=== PATIENT | female | born 1945 | race Caucasian/White ===

== ENCOUNTER 2020-02-02 08:38 | Outpatient (REF) | payer MEDICARE, SELFPAY ==
[2020-02-02 09:52] LABS: MANUAL DIFF FLAG NO
[2020-02-02 10:24] LABS: Basophils Percent Auto 0.3 % (0-2); Eosinophils Absolute Auto 0.2 X10*3/uL (0.0-0.4); Eosinophils Percent Auto 2.7 % (0-4); Hematocrit 41.1 % (37-47); Hemoglobin 13.6 g/dl (12.0-16.0); Imm Gran Abs Auto 0.03 X10*3/uL (0.00-0.03); Imm Gran Pct Auto 0.3 % (0.0-0.4); Lymphocytes Absolute Auto 3.5 X10*3/uL (1.2-4.9); Lymphocytes Percent Auto 40.3 % (20-40); Mean Corpuscular HGB Conc 33.1 g/dl (31.0-35.0); Mean Corpuscular Hemoglobin 30.4 pg (27.0-33.0); Mean Corpuscular Volume 91.9 fL (80-98); Mean Platelet Volume 10.1 fL (9.4-12.3); Monocytes Absolute Auto 0.6 X10*3/uL (0.1-1.2); Neutrophils Absolute Auto 4.2 X10*3/uL (2.0-8.3); Neutrophils Percent Auto 49.4 % (45-73); Platelet Count 316 X10*3/uL (160-400); Red Blood Count 4.47 X10*6/uL (4.20-5.50); Red Cell Distribution Width 12.4 % (11.0-16.0); White Blood Count 8.6 X10*3/uL (4.8-10.8)
[2020-02-02 10:28] LABS: Glucose Urine UA NEG (NEG); Leukocyte Esterase Urine 2+ (NEG); Nitrite Urine NEG (NEG); PH 6.5 (5.0-8.0); Specific Gravity - Urine 1.015 (1.005-1.025); Urine Blood NEG (NEG); Urine Ketones NEG (NEG); Urine Protein NEG (NEG-TRACE)
[2020-02-02 10:31] LABS: Alanine Aminotransferase 9 U/L (0-31); Albumin Level 4.2 g/dL (3.5-5.0); Alkaline Phosphatase 58 U/L (39-117); Anion Gap 10 (12-20); Aspartate Amino Transferase 14 U/L (5-31); Bilirubin Total 0.9 mg/dL (0.0-1.0); Blood Urea Nitrogen 12 mg/dL (9-16); Carbon Dioxide 32 mmol/L (22-29); Chloride 101 mmol/L (96-108); Cholesterol 254 mg/dL; Estimated Glomerular Filt Rate > 60; Glucose Random 105 mg/dL (60-115); HDL Cholesterol 63 mg/dL; LDL Cholesterol Calculated 164 mg/dl; Potassium 4.1 mmol/l (3.3-5.1); Sodium 139 mmol/L (135-145); Total Protein 7.2 g/dL (6.5-8.0); Triglycerides 135 mg/dL
[2020-02-02 10:32] LABS: Estimated Average Glucose 123 mg/dL; Hemoglobin A1c % 5.9 %
[2020-02-02 10:33] LABS: Appearance Urine CLEAR; Color Urine YELLOW
[2020-02-02 10:48] LABS: Bacteria Urine 1+ /LPF; RBC Urine 0 /HPF (0); Squamous Epithelial Cell Urine 2+ /LPF
[2020-02-02 10:49] LABS: Amorphous Sediment Urine 2+ /LPF
[2020-02-02 11:55] LABS: Creatinine Urine 91.21 mg/dL; Microalbumin Urine < 5.0 mg/L
== END 2020-02-02 08:39 | disposition home or self-care (01) ==
LOC: HO.LAB 08:38
PROVIDERS: PCP Internal Medicine; Visit Provider Internal Medicine
DX: Z00.00 Encounter for general adult medical examination without abnormal findings (principal); I10 Essential (primary) hypertension; R73.09 Other abnormal glucose
CPT/HCPCS: 36415; 80053; 80061; 81001; 81003; 82043; 83036; 84153; 85025

== ENCOUNTER 2020-03-29 09:54 | Outpatient (REF) | payer MEDICARE, SELFPAY ==
--- NOTE | 2020-03-29 09:58 | MM_ITS ---
EXAMINATION: MM SCREENING DIGITAL BREAST TOMOSYNTHESIS, BILATERAL CLINICAL INFORMATION: Screening. Asymptomatic. The lifetime risk of breast cancer based on the Tyrer-Cuzick Model is 2%. COMPARISON: Mammography: 03/24/2019, 03/21/2018, 03/19/2017, 02/24/2016 TECHNIQUE: Digital breast tomosynthesis is performed in both the craniocaudal and mediolateral oblique views along with computer-aided detection (CAD). Synthesized 2D images are generated from the tomosynthesis. FINDINGS: The breasts are heterogeneously dense, which may obscure small masses (ACR BI-RADS breast composition Category c). Breast tissue composition borders on average fibroglandular. There is stable nodular asymmetry central left breast on CC view similar to prior exams. There is no developing density or interval architectural abnormality or abnormal calcifications. The axilla and skin contours are unremarkable. MM/MM tomosynthesis screening BI IMPRESSION: No significant changes from prior studies. ASSESSMENT: BI-RADS 2: Benign RECOMMENDATION: Routine annual mammography screening. This patient's information was entered into a reminder system with a target due date for their next mammogram.
== END 2020-03-29 09:55 | disposition home or self-care (01) ==
LOC: HO.MAMMO 09:54
PROVIDERS: PCP Internal Medicine; Visit Provider Internal Medicine
DX: Z12.31 Encounter for screening mammogram for malignant neoplasm of breast (principal)
CPT/HCPCS: 77063; 77067

== ENCOUNTER 2020-11-28 09:50 | Outpatient (REF) | payer MEDICARE, SELFPAY | END 2020-11-28 09:51 | disposition home or self-care (01) | LOC: HO.LAB 09:50 | PROVIDERS: PCP Internal Medicine; Visit Provider Internal Medicine | DX: Z20.822 Contact with and (suspected) exposure to COVID-19 (principal) | CPT/HCPCS: C9803; U0003; U0005 ==

== ENCOUNTER 2021-02-06 10:14 | Outpatient (REF) | payer MEDICARE, SELFPAY ==
[2021-02-06 10:17] LABS: MANUAL DIFF FLAG NO
[2021-02-06 10:37] LABS: Basophils Percent Auto 0.4 % (0-2); Eosinophils Absolute Auto 0.3 X10*3/uL (0.0-0.4); Eosinophils Percent Auto 2.3 % (0-4); Hematocrit 40.7 % (37-47); Hemoglobin 13.3 g/dl (12.0-16.0); Imm Gran Abs Auto 0.05 X10*3/uL (0.00-0.03); Imm Gran Pct Auto 0.5 % (0.0-0.4); Lymphocytes Absolute Auto 3.8 X10*3/uL (1.2-4.9); Lymphocytes Percent Auto 34.7 % (20-40); Mean Corpuscular HGB Conc 32.7 g/dl (31.0-35.0); Mean Corpuscular Hemoglobin 29.4 pg (27.0-33.0); Mean Corpuscular Volume 89.8 fL (80-98); Mean Platelet Volume 10.2 fL (9.4-12.3); Monocytes Absolute Auto 0.8 X10*3/uL (0.1-1.2); Monocytes Percent Auto 7.1 % (2-11); Platelet Count 328 X10*3/uL (160-400); Red Blood Count 4.53 X10*6/uL (4.20-5.50); Red Cell Distribution Width 12.6 % (11.0-16.0); White Blood Count 10.9 X10*3/uL (4.8-10.8)
[2021-02-06 10:47] LABS: Alanine Aminotransferase 12 U/L (0-31); Albumin Level 4.1 g/dL (3.5-5.0); Alkaline Phosphatase 59 U/L (39-117); Anion Gap 12 (12-20); Aspartate Amino Transferase 15 U/L (5-31); Blood Urea Nitrogen 13 mg/dL (9-16); Carbon Dioxide 28 mmol/L (22-29); Chloride 102 mmol/L (96-108); Cholesterol 238 mg/dL; Estimated Glomerular Filt Rate > 60; Glucose Fasting 109 mg/dL (60-99); HDL Cholesterol 62 mg/dL; LDL Cholesterol Calculated 154 mg/dl; Potassium 3.9 mmol/L (3.3-5.1); Sodium 138 mmol/L (135-145); Triglycerides 110 mg/dL
[2021-02-06 10:51] LABS: Estimated Average Glucose 128 mg/dL; Hemoglobin A1c % 6.1 %
[2021-02-06 10:58] LABS: Appearance Urine CLEAR; Color Urine YELLOW; Glucose Urine UA NEG (NEG); Leukocyte Esterase Urine 3+ (NEG); Nitrite Urine NEG (NEG); Urine Blood NEG (NEG); Urine Ketones NEG (NEG); Urine Protein NEG (NEG-TRACE)
[2021-02-06 11:19] LABS: Bacteria Urine 1+ /LPF; RBC Urine 0-2 /HPF (0); Squamous Epithelial Cell Urine 2+ /LPF
== END 2021-02-06 10:15 | disposition home or self-care (01) ==
LOC: HO.LNP 10:14
PROVIDERS: Visit Provider Internal Medicine
DX: Z00.00 Encounter for general adult medical examination without abnormal findings (principal); I10 Essential (primary) hypertension; R73.09 Other abnormal glucose; G44.221 Chronic tension-type headache, intractable; M81.0 Age-related osteoporosis without current pathological fracture
CPT/HCPCS: 80053; 80061; 81001; 81003; 83036; 85025

== ENCOUNTER 2021-04-13 13:30 | Outpatient (REF) | payer MEDICARE, SELFPAY ==
--- NOTE | ~2021-04-13 | MM_ITS ---
EXAMINATION: BONE DENSITOMETRY CLINICAL INDICATION: Osteoporosis. COMPARISON: Previous BD dated 03/20/2019 and baseline BD dated 03/19/2017. TECHNIQUE: Using a [employer] DXA System (software version: 13.1) manufactured by [employer], dual-energy x-ray absorptiometry was performed of the lumbar spine and left hip. The images are of good technical quality. Summary results are attached. FINDINGS: AP SPINE L1-L4: Current: BMD 0.833 g/cm2, Z-score -0.9, T-score -2.9, osteoporosis, 3.1% decrease from previous, 8.9% increase from baseline (<5% change is not significant). Prior: BMD 0.860 g/cm2. Baseline: BMD 0.765 g/cm2. LEFT FEMUR, NECK: Current: BMD 0.849 g/cm2, Z-score 0.8, T-score -1.4, osteopenia. Prior: BMD 0.843 g/cm2. Baseline: BMD 0.852 g/cm2. LEFT FEMUR, TOTAL: Current: BMD 0.841 g/cm2, Z-score 0.7, T-score -1.3, osteopenia, 2.3% decrease from previous, 0.5% decrease from baseline (<5% change is not significant). Prior: BMD 0.822 g/cm2. Baseline: BMD 0.845 g/cm2. IDENTIFIED RISK FACTORS: Osteoporosis, menopause, hysterectomy, bilateral oophorectomy. HISTORY OF FRACTURE: None listed. MEDICATIONS: Calcium supplements or multivitamin, vitamin D, bisphosphonate. MM/XR DEXA axial skeleton IMPRESSION: 1. DIAGNOSIS: Osteoporosis based on the lowest T-score value of -2.9 in the lumbar spine applying World Health Organization criteria. 2. 10-YEAR FRACTURE RISK PREDICTION, FRAX: According to the guidelines, FRAX calculation should only be performed on patients in the osteopenia bone density category. 3. Treatment Recommendations: NOF guidelines recommend consideration for treatment in postmenopausal women and men age 50 and older presenting with the following: -A hip or vertebral (clinical or morphometric) fracture. -T-score less than or equal to -2.5 at the femoral neck or spine after appropriate evaluation to exclude secondary causes. -Low bone mass at the hip or spine and a 10-year fracture probability by FRAX of greater than or equal to 3% for hip fracture or greater than or equal to 20% for major osteoporotic fracture based on the [place] adapted WHO algorithm. 4. Other Recommendations: All treatment decisions require clinical judgment and consideration of individual patient factors, including patient preferences, comorbidities, previous drug use, risk factors not captured in the FRAX model (e.g. frailty, falls, vitamin D deficiency, increased bone turnover, interval significant decline in bone density) and possible under or overestimation of fracture risk by FRAX. Additional medical evaluation for secondary cause of low bone mineral density may be appropriate. FUTURE SCAN RECOMMENDATION: People with diagnosed cases of osteoporosis or at high risk for fracture should have regular bone mineral density tests. For patients eligible for Medicare, routine testing is allowed once every 2 years. The testing frequency can be increased to one year for patients who have rapidly progressing disease, those who are receiving or discontinuing medical therapy to restore bone mass, or have additional risk factors.
--- NOTE | ~2021-04-13 | MM_ITS ---
EXAMINATION: MM SCREENING DIGITAL BREAST TOMOSYNTHESIS, BILATERAL CLINICAL INFORMATION: Screening. Asymptomatic. The lifetime risk of breast cancer based on the Tyrer-Cuzick Model is 2%. COMPARISON: Mammography: 03/29/2020, 03/24/2019, 03/21/2018 TECHNIQUE: Digital breast tomosynthesis is performed in both the craniocaudal and mediolateral oblique views along with computer-aided detection (CAD). Synthesized 2D images are generated from the tomosynthesis. FINDINGS: The breasts are heterogeneously dense, which may obscure small masses (ACR BI-RADS breast composition Category c). Parenchymal pattern is similar to prior studies. There is fine fibronodular parenchymal pattern. There is no developing density or interval mass or architectural abnormality. Nodular asymmetry central left breast is similar to prior study. There are no abnormal calcifications. The axilla and skin contours are unremarkable. MM/MM tomosynthesis screening BI IMPRESSION: No significant changes from prior exams. ASSESSMENT: BI-RADS 2: Benign RECOMMENDATION: Routine annual mammography screening. This patient's information was entered into a reminder system with a target due date for their next mammogram.
== END 2021-04-13 13:31 | disposition home or self-care (01) ==
LOC: HO.MAMMO 13:30
PROVIDERS: Visit Provider Internal Medicine
DX: Z12.31 Encounter for screening mammogram for malignant neoplasm of breast (principal); Z13.820 Encounter for screening for osteoporosis; M81.0 Age-related osteoporosis without current pathological fracture; Z78.0 Asymptomatic menopausal state; Z90.722 Acquired absence of ovaries, bilateral; Z79.899 Other long term (current) drug therapy
CPT/HCPCS: 77063; 77067; 77080

== ENCOUNTER 2021-09-12 15:25 | Outpatient (REF) | payer MEDICARE, SELFPAY ==
--- NOTE | ~2021-09-12 | XR_ITS ---
EXAMINATION: XR CHEST CLINICAL INFORMATION: Bronchospasm COMPARISON: None TECHNIQUE: 2 views of the chest were obtained. FINDINGS: There is coarsening of the interstitial markings of unknown chronicity. There is no engorgement of the central vasculature to suggest superimposed interstitial edema. Costophrenic sulci appear clear. No overt effusion. Heart size within limits of normal. Hilar and mediastinal contours are unremarkable. There are degenerative changes thoracic spine again benign-appearing sclerotic lesion right humeral head. XR/XR chest 2V IMPRESSION: -Coarsening interstitial markings of unknown chronicity. -No engorgement central vasculature to suggest superimposed interstitial edema. No overt effusion.
== END 2021-09-12 15:26 | disposition home or self-care (01) ==
LOC: HO.XRAY 15:25
PROVIDERS: PCP Internal Medicine; Visit Provider Internal Medicine
DX: J98.01 Acute bronchospasm (principal)
CPT/HCPCS: 71046

== ENCOUNTER → 2021-11-14 09:51 | Outpatient (BNVA) | payer MEDICARE, SELFPAY | PROVIDERS: PCP Internal Medicine; Visit Provider Internal Medicine Pulmonary Disease | DX: R06.00 Dyspnea, unspecified (principal); J84.9 Interstitial pulmonary disease, unspecified | CPT/HCPCS: 99202 ==

== ENCOUNTER 2021-12-04 09:11 | Outpatient (REF) | payer MEDICARE, SELFPAY ==
--- NOTE | ~2021-12-04 | CT_ITS ---
EXAMINATION: CT CHEST WITHOUT CONTRAST CLINICAL INFORMATION: Interstitial disease COMPARISON: Previous chest x-ray most recent August TECHNIQUE: Multidetector volumetric CT imaging of the chest was done. Axial MIP volume rendering provided. Sagittal and coronal reformatted images were obtained. This CT examination was performed using dose optimization techniques as appropriate, variously including the following: *Automated exposure control *Adjustment of mA and/or kV according to patient size (this includes techniques or standardized protocols for targeted exams where dose is matched to indication/reason for exam; i.e. extremities or head) *Use of iterative reconstruction technique DLP: 100 mGy-cm FINDINGS: LUNGS: There is mild biapical pleural thickening. There is volume loss to the right hemithorax with shift of the central mediastinal structures to the right. There is complete atelectasis/consolidation of the right middle and right lower lobes. There is soft tissue opacification of the right middle and right lower lobe bronchi. There are some increased peripheral interstitial markings, greatest in the lateral right upper lobe with increased peripheral reticulation and interlobular septal thickening for example axial image 93 series 10. There are increased peripheral interstitial markings seen in the left upper lobe with increased reticulation and interlobular septal thickening for example axial image 79 series 10. MEDIASTINUM: The visualized thyroid gland is normal. The heart does not appear enlarged. There is no pericardial effusion. Thoracic aorta is normal in caliber. Evaluation of the right pulmonary hilum and infrahilar and subcarinal regions is limited due to lack of IV contrast in the right middle lobe atelectasis/consolidation. There are small mediastinal lymph nodes in the AP window region and pretracheal regions. No left hilar adenopathy is appreciated. PLEURA: There is a small right pleural effusion. There is no left pleural effusion. AXILLA: No lymphadenopathy. UPPER ABDOMEN: There are several low-attenuation liver lesions probably representing cysts. The gallbladder has been removed. There is a 2 x 3 cm low-attenuation right adrenal lesion probably representing a benign adenoma. OSSEOUS STRUCTURES: There are degenerative changes of the spine and increased sclerosis. There is a nonspecific sclerotic lesion in the right humeral head. CT/CT chest wo con IMPRESSION: Volume loss to the right hemithorax, complete atelectasis/consolidation of the right middle and lower lobes and soft tissue opacification of the right middle and lower lobe bronchi. This is from August 2021 chest x-ray. Small right pleural effusion. Question mild interstitial lung disease with upper lobe predominance. Fleischner guidelines were followed. Findings communicated by the [facility] work flow dietary manager.
== END 2021-12-04 09:12 | disposition home or self-care (01) ==
LOC: HO.CT 09:11
PROVIDERS: Visit Provider Internal Medicine Pulmonary Disease
DX: J84.9 Interstitial pulmonary disease, unspecified (principal)
CPT/HCPCS: 71250

== ENCOUNTER 2021-12-14 08:40 | Outpatient (REF) | payer MEDICARE, SELFPAY ==
--- NOTE | ~2021-12-14 | FL_ITS ---
EXAMINATION: XR FLUOROSCOPY UPPER GI WITH AIR CLINICAL INFORMATION: Nausea COMPARISON: None TECHNIQUE: Fluoroscopic assessment of the upper GI tract was performed in various upright and supine/prone obliquities utilizing thin and thick high density barium contrast material and effervescent granules. A 13 mm barium tablet was utilized. FINDINGS: The esophagus was normal in course, caliber, and contour. There was normal distensibility with no fixed segment of narrowing. No focal mucosal abnormality was identified. Moderate esophageal dysmotility was observed. Contrast passed freely across the gastroesophageal junction into the stomach. No significant hiatal hernia. The 13 mm barium tablet was swallowed without difficulty, freely passing through the esophagus and into the stomach without delay. There was normal distensibility of the stomach with no focal abnormality identified. There was prompt gastric emptying into the duodenum which demonstrated a normal appearance. Moderate gastroesophageal reflux was observed. FLUOROSCOPY TIME: 1.8 minutes DOSE AREA PRODUCT: 10.154 uGy-m2 (microgray-meter squared) FL/FL upper GI w air IMPRESSION: Moderate esophageal dysmotility. Moderate gastroesophageal reflux noted.
== END 2021-12-14 08:41 | disposition home or self-care (01) ==
LOC: HO.XRAY 08:40
PROVIDERS: PCP Internal Medicine; Visit Provider Internal Medicine
DX: R11.0 Nausea (principal)
CPT/HCPCS: 74246

== ENCOUNTER 2021-12-25 16:26 | Outpatient (REF) | payer MEDICARE, SELFPAY ==
[2021-12-25 16:29] LABS: MANUAL DIFF FLAG NO
[2021-12-25 16:45] LABS: Basophils Absolute Auto 0.1 X10*3/uL (0.0-0.2); Basophils Percent Auto 0.5 % (0-2); Eosinophils Absolute Auto 0.2 X10*3/uL (0.0-0.4); Eosinophils Percent Auto 1.9 % (0-4); Hematocrit 38.1 % (37.0-47.0); Imm Gran Abs Auto 0.05 X10*3/uL (0.00-0.03); Imm Gran Pct Auto 0.5 % (0.0-0.4); Lymphocytes Absolute Auto 2.6 X10*3/uL (1.2-4.9); Lymphocytes Percent Auto 24.1 % (20-40); Mean Corpuscular HGB Conc 34.1 g/dl (31.0-35.0); Mean Corpuscular Hemoglobin 29.5 pg (27.0-33.0); Mean Corpuscular Volume 86.6 fL (80.0-98.0); Mean Platelet Volume 9.8 fL (9.4-12.3); Monocytes Absolute Auto 0.8 X10*3/uL (0.1-1.2); Monocytes Percent Auto 7.6 % (2-11); Neutrophils Absolute Auto 7.1 x10*3/uL (2.0-8.3); Neutrophils Percent Auto 65.4 % (45-73); Platelet Count 460 X10*3/uL (160-400); Red Cell Distribution Width 12.4 % (11.0-16.0); White Blood Count 10.9 X10*3/uL (4.8-10.8)
[2021-12-25 16:51] LABS: Alanine Aminotransferase 16 U/L (0-31); Albumin Level 4.1 g/dL (3.5-5.0); Alkaline Phosphatase 63 U/L (39-117); Anion Gap 15 (12-20); Aspartate Amino Transferase 17 U/L (5-31); Bilirubin Total 0.6 mg/dL (0.0-1.0); Blood Urea Nitrogen 11 mg/dL (9-16); Calcium 9.2 mg/dL (8.4-10.2); Carbon Dioxide 25 mmol/L (22-29); Chloride 98 mmol/L (96-108); Estimated Glomerular Filt Rate > 60; Glucose Fasting 167 mg/dL (60-99); Potassium 3.7 mmol/L (3.3-5.1); Sodium 134 mmol/L (135-145); Total Protein 7.2 g/dL (6.5-8.0)
[2021-12-25 17:21] LABS: Erythrocyte Sedimentation Rate 28 MM/HR (0-20)
== END 2021-12-25 16:27 | disposition home or self-care (01) ==
LOC: HO.LNP 16:26
PROVIDERS: Visit Provider Internal Medicine
DX: R73.03 Prediabetes (principal)
CPT/HCPCS: 80053; 85025; 85652

== ENCOUNTER 2021-12-26 07:38 | Outpatient (REF) | payer MEDICARE, SELFPAY ==
--- NOTE | 2021-12-26 16:11 | PFT_ITS ---
Forced vital capacity 53%, FEV1 61%, FEV1/FVC ratio is 85. [id number] 87% and MVV 57%. Post bronchodilator therapy, there is no significant change. Total lung capacity 50%, residual volume 45%. Diffusion capacity 41%. CONCLUSION: Moderately severe restrictive pulmonary disorder. No obstructive airway disorder. No response to bronchodilator therapy. Clinical correlation recommended. MD MELVA Deshpande/MODL / [phone]
== END 2021-12-26 07:39 | disposition home or self-care (01) ==
LOC: HO.RESP 07:38
PROVIDERS: PCP Internal Medicine; Visit Provider Internal Medicine Pulmonary Disease
DX: J84.9 Interstitial pulmonary disease, unspecified (principal); R06.00 Dyspnea, unspecified; J98.11 Atelectasis
CPT/HCPCS: 94060; 94727; 94729; 99212

== ENCOUNTER 2022-01-04 07:29 | Day surgery (SDC) | payer MEDICARE, SELFPAY ==
[2022-01-01 14:15] VITALS: BMI 22.4
[2022-01-04] VITALS (11 sets, daily range): BP systolic 98–163; BP diastolic 55–87; PULSE 72–89; RESP 15–32; TEMP 36.7–36.8; O2SAT 91–99; BMI 22.6
[2022-01-04] MEDS: Lactated Ringers 1,000 ML 50 ML IVCONT (08:13)
--- NOTE | 2022-01-04 09:10 | HO.ANESPROP2 ---
FORM[facility]LY [facility] Active Problems Active Problems: All Active Problems (Updated 01/01/22 @ 14:30 by Rachell Mullen, SWETHA) ILD (interstitial lung disease) (Acute) Dyspnea (Acute) Atelectasis of right lung (Acute) Past Medical History Medical History (Updated 01/01/22 @ 14:30 by Rachell Mullen, SWETHA) GERD (gastroesophageal reflux disease) History of melanoma HTN (hypertension) Osteoporosis Family History Family history of problems with anesthesia: No Surgical History Surgical History (Updated 01/04/22 @ 07:52 by Monique Montejo) History of breast surgery History of cholecystectomy History of hysterectomy Hx of colonoscopy History of Problems with Anesthesia: No Social History Social History Patient Tobacco Use Status: Former Tobacco user Quit Date: 1986 Tobacco use type: Cigarette Years Smoked: 10 Smoked in Last 30 Days: No Use of substances other than those prescribed or required for medical reasons: No Are you DNR?: No Advance Directives: No Advance Directives Information Provided: Yes Meds Allergies Allergy/AdvReac Type Severity Reaction Status Date / Time No Known Allergies Allergy Verified 01/04/22 07:39 Active Medications: Current Medications Albuterol Sulfate (Albuterol Sulfate (0.083%) 2.5 Mg/3 Ml Vial.Neb) 2.5 mg INHALE ONCE PRN PRN Reason: Shortness of Breath/Wheezing Fentanyl (Fentanyl Citrate/Pf 100 Mcg/2 Ml Vial) 25 mcg IVPUSH Q5M PRN; Protocol PRN Reason: Pain, Moderate (Pain Scale 4-6 Lactated Ringer's (Lr) 1,000 mls @ 50 mls/hr IVCONT .Q20H VLADIMIR Last Admin: 01/04/22 08:13 Dose: 50 mls/hr Ondansetron HCl (Ondansetron Hcl 4 Mg/2 Ml Vial) 4 mg IVPUSH ONCE PRN PRN Reason: Nausea and Vomiting Home Medications Medication Instructions Recorded Confirmed Last Taken Type albuterol sulfate 90 mcg/actuation 1 puff PO Q4H 11/14/21 Unknown History aerosol inhaler fluticasone 250 mcg-salmeterol 50 1 ea inhalation BID 11/14/21 Unknown History mcg/dose blistr powdr for inhalation (Advair Diskus) lisinopril 20 1 tab PO DAILY 11/14/21 Unknown History mg-hydrochlorothiazide 12.5 mg tablet omeprazole 20 mg capsule,delayed 20 mg PO DAILY 11/14/21 01/04/22 06:30 History release [facility] DAILY 01/04/22 Unknown History Tylenol 2 tab PO DAILY PRN Headache 01/04/22 01/04/22 01/03/22 18:00 History 650 mg Vitamin C DAILY 01/04/22 Unknown History calcium DAILY 01/04/22 Unknown History vitamin E DAILY 01/04/22 Unknown History Exam Exam Date and Time: January 04, 2022 0910 Height,Weight and Vital Signs: Height 5 ft 1 in Weight 54.431 kg Last Vital Signs Temp 98.1 F 01/04/22 08:07 Pulse 88 01/04/22 08:07 Resp 16 01/04/22 08:07 BP 156/86 H 01/04/22 08:07 Pulse Ox 97 01/04/22 08:07 O2 Del Method 01/04/22 08:07 Airway Mallampati Class: III TM Dist: >3cm Neck ROM: Full Denture: Upper and Lower Heart: rrr Lungs: clear Assessment and Plan Final Anesthetic Review Family History of Problems with Anesthesia: No History of Problems with Anesthesia: No ASA Class: III Final Preanesthetic Review: No Changes in Pt Med Stat, Meds/Allgs Chart Reviewed, Consent Obtained/Reviewed and Anes Risks/Benef Reviewed Patient Risk: Intermediate Procedure Risk: Low Anesthetic Plan Anesthetic Plan: GA Disposition: Standard PACU
--- NOTE | 2022-01-04 09:10 | MHC.SHP ---
Pre-Procedural Eval Section A Date of Service: 01/04/22 The patient is an INPATIENT: No Changes since office visit: No Cold of Flu in the past 2 weeks, No New Medical Problems, No Changes in Medication and No Patient answered all questions The History & Physical has been completed within 30 days and I have reviewed it.: Yes Section B Chief Complaint: Atelectasis Allergies: Allergies Allergy/AdvReac Type Severity Reaction Status Date / Time No Known Allergies Allergy Verified 01/04/22 07:39 Plan Diagnosis/Plan: Unchanged I have reviewed the history and physical and performed a pertinent physical examination on my patient. No changes have occurred unless specified.
--- NOTE | 2022-01-04 10:27 | PM.OP ---
Brief Operative Note Date of Service: 01/04/22 Pre-op diagnosis: Persistent atelectasis Post-op diagnosis: same Procedure: Flexible bronchoscopy performed through laryngeal mask airway with airway placed for the procedure. Flexible bronchoscope advanced through the tracheobronchial tree with visualization of normal patent airways and bronchial mucosa on the left side. On the right-side right main bronchus and right upper lobe bronchus were noted to be in normal and patent With normal mucosa. Opening of the right bronchus intermedius was obstructed by edematous inflamed and easily friable with minimal contact mucosa. No biopsies were obtained secondary to significant oozing of the mucosa with a minimal contact. Brushing and lavage of the right bronchus intermedius a sent for cytology. Airway was observed with resolution of blood oozing. Patient was returned to PACU in stable condition. Surgeon: Michael Mehat MD Anesthesia: GLMA Was an [employer] Installer used for this Procedure?: No Estimated blood loss (mL): 0 Pathology: other ( Bronchoalveolar lavage and brushing of right bronchus intermedius for cytology) Condition: stable Disposition: PACU
== END 2022-01-04 11:45 | disposition home or self-care (01) ==
PROVIDERS: PCP Internal Medicine; Visit Provider Internal Medicine Pulmonary Disease
PROC: 0BJ08ZZ Inspection of Tracheobronchial Tree, Via Natural or Artificial Opening Endoscopic (ICD-10-PCS; CPT 31622; principal; 2022-01-04 09:10)
DX: J98.11 Atelectasis (principal); J84.9 Interstitial pulmonary disease, unspecified; R06.00 Dyspnea, unspecified; Z79.51 Long term (current) use of inhaled steroids; Z87.891 Personal history of nicotine dependence
CPT/HCPCS: 31624; 31623; 87071; 87205; J0171; J1100; J2370; J2405; J3010

== ENCOUNTER 2022-01-04 09:53 | Outpatient (REF) | payer MEDICARE, SELFPAY | END 2022-01-04 09:54 | LOC: HO.LNP 09:53 | PROVIDERS: Visit Provider Internal Medicine Pulmonary Disease | DX: J98.11 Atelectasis (principal) | CPT/HCPCS: 88112; 88305; 88341; 88342 ==

== ENCOUNTER 2022-02-01 12:17 | Emergency (ER) | payer MEDICARE, SELFPAY ==
--- NOTE | ~2022-02-01 | CT_ITS ---
EXAMINATION: CT ANGIOGRAM OF THE CHEST WITH AND WITHOUT CONTRAST (CT PULMONARY ANGIOGRAM FOR PE) CLINICAL INFORMATION: Reason for Exam new onset afib, hx lung CA, ?PE COMPARISON: CT chest 12/04/2021 TECHNIQUE: Prior to contrast administration, noncontrast localization images were obtained. Subsequently, multidetector volumetric imaging was performed from the thoracic inlet to below the diaphragms following the administration of 65 mL Omnipaque 350 intravenous contrast. No contrast reaction reported Sagittal, coronal, and MIP oblique sagittal reformatted images were obtained on the CT workstation, uploaded to PACS, and reviewed. This CT examination was performed using dose optimization techniques as appropriate, variously including the following: *Automated exposure control *Adjustment of mA and/or kV according to patient size (this includes techniques or standardized protocols for targeted exams where dose is matched to indication/reason for exam; i.e. extremities or head) *Use of iterative reconstruction technique Total exam dose-length product 228 mGy-cm FINDINGS: QUALITY OF STUDY/CONTRAST BOLUS: Satisfactory. PULMONARY ARTERIES: No central or segmental pulmonary emboli. THORACIC AORTA: No aneurysm or dissection. LUNG: Again seen is complete collapse of the right middle and right lower lobe. The right mainstem bronchus can be seen to be narrowed with subsequent occlusion. A soft tissue mass appears to be in the infrahilar region compressing the bronchi. The mass can also be seen to be encasing superior pulmonary vein on the right. PLEURA: Small right pleural effusion is unchanged. MEDIASTINUM: Heart size normal. Please see discussion above regarding mediastinal mass. No evidence of septal bowing or right heart strain. CHEST WALL/AXILLA: No axillary or internal mammary lymphadenopathy. OSSEOUS STRUCTURES: No acute or suspicious osseous abnormality. UPPER ABDOMEN: A water density right adrenal mass is present unchanged and consistent with a benign adenoma. Tiny bianca of calcification is seen peripherally this mass. Hepatic cysts are present. No reflux of contrast into the hepatic veins to suggest elevated right heart pressures. CT/CT angio chest PE protocol IMPRESSION: 1. No evidence of pulmonary emboli. 2. Right infrahilar mass causing complete collapse of the right middle and right lower lobes with narrowing of the right mainstem bronchus and encasement of the right superior pulmonary vein. Appearances are unchanged when compared to prior. 3. Unchanged small right pleural effusion. VTE: negative.
--- NOTE | 2022-02-01 12:20 | ECG_ITS ---
Test Reason : arrhythmia Blood Pressure : / mmHG Vent. Rate : 108 BPM Atrial Rate : 000 BPM P-R Int : 000 ms QRS Dur : 072 ms QT Int : 360 ms P-R-T Axes : 000 -22 038 degrees QTc Int : 482 ms Rhythm shows atrial flutter with variable block with rapid ventricular response Nonspecific ST and T wave abnormality Abnormal ECG No previous ECGs available Referred By: Angelika Be Electronically Signed By:IRA MENEZES MD
--- NOTE | 2022-02-01 12:22 | ED_ITS ---
HPI - Arrhythmia/Palpitations General Chief Complaint: Arrhythmia/Palpitations Stated Complaint: Chest Pain Sent By Dr Banks Time Seen by Provider: 02/01/22 12:21 Source: patient Mode of arrival: ambulatory Limitations: no limitations History of Present Illness HPI narrative: Patient is a 76-year-old female who presents emergency department from her PCP office. She states she was therefore a general office visit. She had reported feeling fatigued lately which has not been uncommon for her, but also feeling shortness of breath since this morning, was found to be in new onset AFib in their office. She is being followed by pulmonology for new diagnosis of lung cancer, is awaiting a PET scan and has not yet reviewed treatment options. Denies any past history of atrial fibrillation. She states that time she does feel mild palpitations but is never thought much of it. Has a productive cough at baseline. Denies fevers, chills, recent upper respiratory symptoms, nausea, vomiting, abdominal pain, numbness or tingling of the extremities, recent swelling or redness to the lower extremities, or generalized weakness. Related Data Home Medications Medication Instructions Recorded Confirmed albuterol sulfate 90 mcg/actuation 1 puff PO Q4H 11/14/21 aerosol inhaler fluticasone 250 mcg-salmeterol 50 1 ea inhalation BID 11/14/21 mcg/dose blistr powdr for inhalation (Advair Diskus) lisinopril 20 1 tab PO DAILY 11/14/21 mg-hydrochlorothiazide 12.5 mg tablet omeprazole 20 mg capsule,delayed 20 mg PO DAILY 11/14/21 release Move Free [employer] DAILY 01/04/22 Tylenol 2 tab PO DAILY PRN Headache 01/04/22 01/04/22 Vitamin C DAILY 01/04/22 calcium DAILY 01/04/22 vitamin E DAILY 01/04/22 Previous Rx's Medication Instructions Recorded apixaban 2.5 mg tablet (Eliquis) 2.5 mg PO BID atrial fibrilation 02/01/22 #60 tabs Allergies Allergy/AdvReac Type Severity Reaction Status Date / Time No Known Allergies Allergy Verified 01/04/22 07:39 Review of Systems Review of Systems: Constitutional : No Weight loss, No Fever, No Chills ENT/Mouth :? No sore throat, No Rhinorrhea Eyes: No Eye Pain, No Swelling Cardiovascular : Chest Pain, pos SOB, no Dyspnea on Exertion, No Orthopnea, No Edema, positive Palpitations Respiratory : Positive Cough, positive Sputum Gastrointestinal : pos Nausea, No Vomiting, No Diarrhea, No abdominal Pain, No Hematochezia, No Melena Genitourinary : No Dysuria, No Urinary Frequency Musculoskeletal : No joint pain, No Myalgias, No Joint Swelling Skin : No Skin Lesions, No rash Neuro : No Weakness, No Numbness, No Dizziness, No Headache Psych : No Anxiety/Panic, No Depression Heme/Lymph: No Bruising, No Lymphadenopathy Endocrine : No Polyuria, No Polydipsia [facility] Past Medical History Attestation statement: The following information was validated with the patient. Source: old records reviewed Medical History GERD (gastroesophageal reflux disease) History of melanoma HTN (hypertension) Osteoporosis Surgical History History of breast surgery History of cholecystectomy History of hysterectomy Hx of colonoscopy Social History Social History Patient Tobacco Use Status: Former Tobacco user Quit Date: 1986 Tobacco use type: Cigarette Years Smoked: 10 Advance Directives: No Advance Directives Information Provided: No Physical Exam Vital Signs: Vital Signs: Last Vital Signs Temp 97.8 F 02/01/22 12:24 Pulse 87 02/01/22 13:22 Resp 24 H 02/01/22 12:29 BP 124/75 02/01/22 13:22 Pulse Ox 97 02/01/22 13:22 O2 Del Method 02/01/22 13:22 BMI result Body Mass Index 22.8 Appearance: Alert.?Oriented to person, place and time. No acute distress.?Normal affect. Eyes: Pupils equal, round and reactive to light.? ENT: Pharynx normal.?? Neck: Normal inspection.? Neck supple.?? CVS: Heart sounds normal. Irregularly irregular rhythm? Pulses normal.?? Respiratory: No respiratory distress.? Lung sounds clear to auscultation bilaterally, diminished in left lower lobe? Abdomen: Soft and non-tender. Normoactive bowel sounds. ?? Skin: Skin warm and dry.? Normal skin color.? ?? Extremities: No lower extremity edema.? No calf ttp? Neuro: Moves all extremities spontaneously. Sensation intact bilaterally. CN II- XII intact. No focal neuro deficits. Ambulates with normal steady gait. Course Course Course Narrative: Patient is a 76-year-old female with a past medical history of HTN, GERD, she is being followed by pulmonology Dr. Mehta for non-small cell carcinoma, awaiting PET scan prior to treatment options to be discussed. [id number] score of 4; moderate-high risk, candidate for anticoagulation. She is tearful at the time of examination, noted to be tachypneic however without hypoxia. EKG revealing atrial flutter with RVR, patient received Cardizem 10 mg IV. Will obtain CBC to evaluate for leukocytosis/ anemia, CMP to evaluate for abnormal electrolytes /abnormal renal function/ abnormal hepatic function, EKG and troponin to evaluate for ischemia/ACS. Given history of lung cancer in once atrial fibrillation will obtain CT angio of the chest to exclude pulmonary embolism. Reevaluation(s) Reevaluation #1: CBC is overall unremarkable, CMP is overall unremarkable. Troponin 7.6, EKG revealed atrial fibrillation with RVR, received diltiazem 10 mg IV bolus, heart rate down to 80s, and converted back to a normal sinus rhythm after receiving diltiazem. Patient also received metoprolol tartrate 25 mg PO. Urinalysis without evidence of infection. CT angio of the chest is pending. Time: 14:30 Reevaluation #2: CTA of the chest reveals no evidence of pulmonary emboli, there is right infrahilar mass causing complete collapse of the right middle and right lower lobe which appears unchanged when compared to prior CT. I spoke with Cardiology Dr. Lr discussed patient case, given chads Vasc score, although she has converted back to normal sinus rhythm with still recommend initiating anti coagulants given that she has no upcoming procedures from pulmonology standpoint for evaluation of lung CA. Spoke with patient's biodiesel engine specialist Dr. Mehta, no contraindication for patient to receive anticoagulation at this time. Discussed these findings with patient. Will initiate Eliquis 2.5 mg twice daily given current weight is less than 60kg. We discussed precautions surrounding use of anticoagulants and reasons that she should come to the emergency department for evaluation. She verbalizes understanding. Again has remained in normal sinus rhythm since initial conversion, heart rate has been in the 60s the last couple of hours, blood pressure 124/75, no indications for rate control at this time. She is already on antihypertensive as well. Time: 17:00 MDM - Arrhythmia/Palpitations Medical Records Attestation: I reviewed the patient's medical records. Lab Data Attestation: I reviewed the patient's lab results. Result diagrams: 02/01/22 12:41 02/01/22 12:41 Labs: Lab Results 02/01/22 02/01/22 02/01/22 Range/Units 12:41 12:41 12:41 WBC 12.8 H (4.8-10.8) X10*3/uL RBC 4.86 (4.20-5.50) X10*6/uL Hgb 14.0 (12.0-16.0) g/dl Hct 41.0 (37.0-47.0) % MCV 84.4 (80.0-98.0) fL MCH 28.8 (27.0-33.0) pg MCHC 34.1 (31.0-35.0) g/dl RDW 12.1 (11.0-16.0) % Plt Count 414 H (160-400) X10*3/uL MPV 9.5 (9.4-12.3) fL Immature Gran % (Auto) 0.2 (0.0-0.4) % Neut % (Auto) 73.8 H (45-73) % Lymph % (Auto) 16.7 L (20-40) % [place] % (Auto) 6.7 (2-11) % Eos % (Auto) 2.3 (0-4) % Baso % (Auto) 0.3 (0-2) % Lymph # (Auto) 2.1 (1.2-4.9) X10*3/uL [place] # (Auto) 0.9 (0.1-1.2) X10*3/uL Eos # (Auto) 0.3 (0.0-0.4) X10*3/uL Baso # (Auto) 0.0 (0.0-0.2) X10*3/uL Abs Immat Gran (auto) 0.03 (0.00-0.03) X10*3/uL Absolute Neuts (auto) 9.4 H (2.0-8.3) x10*3/uL Absolute Nucleated RBC 0.000 (0.0-0.012) X10*3/uL Nucleated RBC % (auto) 0.0 (0.0-0.2) /100WBC APTT 28.8 (26.0-36.4) SEC Sodium 134 L (135-145) mmol/L Potassium 3.8 (3.3-5.1) mmol/L Chloride 96 (96-108) mmol/L Carbon Dioxide 26 (22-29) mmol/L Anion Gap 16 (12-20) BUN 17 H D (9-16) mg/dL Creatinine 0.65 (0.5-1.4) mg/dL Estim Creat Clear Calc 53.8 Estimated GFR > 60 Random Glucose 206 H (60-115) mg/dL Calcium 9.6 (8.4-10.2) mg/dL Magnesium 1.7 (1.6-2.6) mg/dL Total Bilirubin 0.9 (0.0-1.0) mg/dL AST 17 (5-31) U/L ALT 17 (0-31) U/L Alkaline Phosphatase 83 D (39-117) U/L Troponin I High Sens (<3.5-17.0) ng/L B-Natriuretic Peptide (<100) pg/mL Total Protein 7.3 (6.5-8.0) g/dL Albumin 4.1 (3.5-5.0) g/dL Urine Color Urine Appearance Urine pH (5.0-9.0) Ur Specific [place] (1.005-1.025) Urine Protein (Neg-Trace) mg/dL Urine Glucose (UA) (Negative) mg/dL Urine Ketones (Negative) mg/dL Urine Blood (Negative) Urine Nitrite (Negative) Ur Leukocyte Esterase (Negative) COVID-19 ([facility]) (Negative) COVID-19 Clin Com 02/01/22 02/01/22 02/01/22 Range/Units 12:41 12:42 14:13 WBC (4.8-10.8) X10*3/uL RBC (4.20-5.50) X10*6/uL Hgb (12.0-16.0) g/dl Hct (37.0-47.0) % MCV (80.0-98.0) fL MCH (27.0-33.0) pg MCHC (31.0-35.0) g/dl RDW (11.0-16.0) % Plt Count (160-400) X10*3/uL MPV (9.4-12.3) fL Immature Gran % (Auto) (0.0-0.4) % Neut % (Auto) (45-73) % Lymph % (Auto) (20-40) % [place] % (Auto) (2-11) % Eos % (Auto) (0-4) % Baso % (Auto) (0-2) % Lymph # (Auto) (1.2-4.9) X10*3/uL [place] # (Auto) (0.1-1.2) X10*3/uL Eos # (Auto) (0.0-0.4) X10*3/uL Baso # (Auto) (0.0-0.2) X10*3/uL Abs Immat Gran (auto) (0.00-0.03) X10*3/uL Absolute Neuts (auto) (2.0-8.3) x10*3/uL Absolute Nucleated RBC (0.0-0.012) X10*3/uL Nucleated RBC % (auto) (0.0-0.2) /100WBC APTT (26.0-36.4) SEC Sodium (135-145) mmol/L Potassium (3.3-5.1) mmol/L Chloride (96-108) mmol/L Carbon Dioxide (22-29) mmol/L Anion Gap (12-20) BUN (9-16) mg/dL Creatinine (0.5-1.4) mg/dL Estim Creat Clear Calc Estimated GFR Random Glucose (60-115) mg/dL Calcium (8.4-10.2) mg/dL Magnesium (1.6-2.6) mg/dL Total Bilirubin (0.0-1.0) mg/dL AST (5-31) U/L ALT (0-31) U/L Alkaline Phosphatase (39-117) U/L Troponin I High Sens 7.6 (<3.5-17.0) ng/L B-Natriuretic Peptide 36 (<100) pg/mL Total Protein (6.5-8.0) g/dL Albumin (3.5-5.0) g/dL Urine Color Yellow Urine Appearance Clear Urine pH 7.5 (5.0-9.0) Ur Specific [place] 1.015 (1.005-1.025) Urine Protein Negative (Neg-Trace) mg/dL Urine Glucose (UA) Negative (Negative) mg/dL Urine Ketones Negative (Negative) mg/dL Urine Blood Negative (Negative) Urine Nitrite Negative (Negative) Ur Leukocyte Esterase Negative (Negative) COVID-19 ([facility]) Negative (Negative) COVID-19 Clin Com See Note Imaging Data CT scan - chest: Radiologist's impression: CT/CT angio chest PE protocol IMPRESSION: 1.? No evidence of pulmonary emboli. 2.? Right infrahilar mass causing complete collapse of the right middle and right lower lobes with narrowing of the right mainstem bronchus and encasement of the right superior pulmonary vein. Appearances are unchanged when compared to prior. 3.? Unchanged small right pleural effusion. VTE: negative. ECG Data Attestation: I personally reviewed and interpreted this ECG as follows: ECG interpretation date: 02/01/22 Interpretation: Rate: 108 Rhythm:?atrial flutter variable block with RVR Normal QRS complex.?? ST T wave :? No ST elevation, ST depression, no T-wave inversion? qTC: 482 prior studies:? None available for review The study has been interpreted contemporaneously by me. Discharge Plan Discharge Clinical Impression: Atrial fibrillation and flutter Patient Disposition: Home, Self-Care Instructions: Atrial Flutter (ED), A-fib (Atrial Fibrillation) (ED), Blood Thinners (ED) Additional Instructions: As we discussed your initial heart rhythm was found to be atrial fibrillation and atrial flutter. Your rhythm converted back to a normal sinus rhythm. Your heart rhythm has remained normal and at an appropriate rate since that conversion. As we discussed it is recommended that he begin a blood thinning medication, Eliquis which he will take twice daily. We discussed the risk of bleeding while taking this medication and reviewed reasons to come to the emergency department such as uncontrolled bleeding, blood in the urine, blood in the stool, blood from her nose, any fall or head injury. You will need to follow up with Cardiology outpatient, please contact their office the number has been provided for you, Dr. Lr. Additionally you will need to follow-up with your biodiesel engine specialist regarding lung cancer. Please also contact your primary care provider's office tomorrow to make them aware of this new diagnosis and arrange for a follow-up visit. Return to the emergency department for any new or worsening symptoms or concerns such as dizziness, lightheadedness, chest pain, palpitations, shortness of breath, difficulty breathing Prescriptions: New Eliquis 2.5 mg tablet 2.5 mg PO BID Qty: 60 0RF No Action Move Free [employer] DAILY Vitamin C DAILY calcium DAILY vitamin E DAILY Tylenol 325 mg 2 tab PO DAILY PRN (Reason: Headache) omeprazole 20 mg capsule,delayed release(DR/EC) 20 mg PO DAILY lisinopril-hydrochlorothiazide 20-12.5 mg tablet 1 tab PO DAILY fluticasone propion-salmeterol [Advair Diskus] 250-50 mcg/dose blister with de vice 1 ea inhalation BID albuterol sulfate 90 mcg/actuation HFA aerosol inhaler 1 puff PO Q4H Referrals: Dereje Banks MD [Primary Care Provider] - Tad Lr MD [Physician] -
[2022-02-01 12:24] VITALS: BP 140/83; PULSE 110; RESP 34; TEMP 36.6; O2SAT 99; BMI 22.8
[2022-02-01 12:27] VITALS: PULSE 110
[2022-02-01 12:29] VITALS: PULSE 116; RESP 24; O2SAT 98
[2022-02-01 12:46] LABS: MANUAL DIFF FLAG NO
[2022-02-01 12:48] LABS: Basophils Percent Auto 0.3 % (0-2); Eosinophils Absolute Auto 0.3 X10*3/uL (0.0-0.4); Eosinophils Percent Auto 2.3 % (0-4); Imm Gran Abs Auto 0.03 X10*3/uL (0.00-0.03); Imm Gran Pct Auto 0.2 % (0.0-0.4); Lymphocytes Absolute Auto 2.1 X10*3/uL (1.2-4.9); Lymphocytes Percent Auto 16.7 % (20-40); Mean Corpuscular HGB Conc 34.1 g/dl (31.0-35.0); Mean Corpuscular Hemoglobin 28.8 pg (27.0-33.0); Mean Corpuscular Volume 84.4 fL (80.0-98.0); Mean Platelet Volume 9.5 fL (9.4-12.3); Monocytes Absolute Auto 0.9 X10*3/uL (0.1-1.2); Monocytes Percent Auto 6.7 % (2-11); Neutrophils Absolute Auto 9.4 x10*3/uL (2.0-8.3); Neutrophils Percent Auto 73.8 % (45-73); Platelet Count 414 X10*3/uL (160-400); Red Blood Count 4.86 X10*6/uL (4.20-5.50); Red Cell Distribution Width 12.1 % (11.0-16.0); White Blood Count 12.8 X10*3/uL (4.8-10.8)
[2022-02-01 13:07] LABS: Alanine Aminotransferase 17 U/L (0-31); Albumin Level 4.1 g/dL (3.5-5.0); Alkaline Phosphatase 83 U/L (39-117); Anion Gap 16 (12-20); Aspartate Amino Transferase 17 U/L (5-31); Bilirubin Total 0.9 mg/dL (0.0-1.0); Blood Urea Nitrogen 17 mg/dL (9-16); Calcium 9.6 mg/dL (8.4-10.2); Carbon Dioxide 26 mmol/L (22-29); Chloride 96 mmol/L (96-108); Creatinine Clr Calc Pharmacy 53.8; Estimated Glomerular Filt Rate > 60; Glucose Random 206 mg/dL (60-115); Magnesium 1.7 mg/dL (1.6-2.6); Potassium 3.8 mmol/L (3.3-5.1); Sodium 134 mmol/L (135-145); Total Protein 7.3 g/dL (6.5-8.0); Troponin-I High Sensitivity 7.6 ng/L (<3.5-17.0)
[2022-02-01 13:08] LABS: Partial Thromboplastin Time 28.8 SEC (26.0-36.4)
[2022-02-01 13:09] LABS: COVID-19 Test Negative (Negative); IDNOW Serial# 16C4AD1C
[2022-02-01] MEDS: dilTIAZem HCL 50 MG/10 ML VIAL 10 MG IVPUSH (13:18)
[2022-02-01 13:22] VITALS: BP 124/75; PULSE 87; O2SAT 97
[2022-02-01 14:04] LABS: B Type Natriuretic Peptide 36 pg/mL (<100)
[2022-02-01] MEDS: iohexoL 350 MG/ML 100 ML INFUS..BTL 65 ML IV (14:10)
--- NOTE | 2022-02-01 14:14 | ECG_ITS ---
Test Reason : AFIB Blood Pressure : / mmHG Vent. Rate : 085 BPM Atrial Rate : 085 BPM P-R Int : 170 ms QRS Dur : 074 ms QT Int : 406 ms P-R-T Axes : 027 -30 012 degrees QTc Int : 483 ms Normal sinus rhythm Left axis deviation Abnormal ECG When compared with ECG of 01-FEB-2022 12:58, previous stdy had aflutter Nonspecific T wave abnormality no longer evident in Lateral leads Referred By: Angelika Be Electronically Signed By:IRA MENEZES MD
[2022-02-01 14:25] LABS: Appearance Urine Clear; Color Urine Yellow; Glucose Urine UA Negative (Negative); Leukocyte Esterase Urine Negative (Negative); Nitrite Urine Negative (Negative); PH 7.5 (5.0-9.0); Specific Gravity - Urine 1.015 (1.005-1.025); Urine Blood Negative (Negative); Urine Ketones Negative (Negative); Urine Protein Negative (Neg-Trace)
[2022-02-01] MEDS: Metoprolol Tartrate 25 MG TABLET PO (15:23)
[2022-02-01 17:36] VITALS: BP 131/84; PULSE 70
[2022-02-01] MEDS: Apixaban 2.5 MG TABLET PO (17:36)
== END 2022-02-01 18:10 | disposition home or self-care (01) ==
PROVIDERS: Nurse Practitioner Family; Emergency Provider Emergency Medicine; PCP Internal Medicine
DX: I48.91 Unspecified atrial fibrillation (principal); R07.89 Other chest pain; R00.2 Palpitations; Z20.822 Contact with and (suspected) exposure to COVID-19; Z79.899 Other long term (current) drug therapy; Z79.01 Long term (current) use of anticoagulants; Z87.891 Personal history of nicotine dependence
CPT/HCPCS: 71275; 80053; 81003; 83735; 83880; 84484; 85025; 85730; 87635; 93005; 96374; 99284; Q9967

== ENCOUNTER 2022-02-05 08:42 | Emergency (ER) | payer MEDICARE, SELFPAY ==
--- NOTE | ~2022-02-05 | XR_ITS ---
EXAMINATION: XR CHEST CLINICAL INFORMATION: Shortness of breath COMPARISON: Chest CT 02/01/2022 TECHNIQUE: Frontal view of the chest was obtained. FINDINGS: Right pleural effusion and right consolidation again seen. There is some improved aeration at the right lung base. Normal heart size. Left lung and pleural spaces are clear. Bone infarct or enchondroma of the right humeral head XR/XR chest 1V IMPRESSION: Right pleural effusion and right base consolidation are again seen. There is some improved aeration of the right lower lobe. The right infrahilar mass evident on the chest CT is not as well seen by chest x-ray.
--- NOTE | 2022-02-05 08:44 | ECG_ITS ---
Test Reason : chest pain Blood Pressure : / mmHG Vent. Rate : 109 BPM Atrial Rate : 000 BPM P-R Int : 000 ms QRS Dur : 076 ms QT Int : 356 ms P-R-T Axes : 000 -24 -77 degrees QTc Int : 479 ms Atrial fibrillation with rapid ventricular response Nonspecific ST and T wave abnormality Left axis deviation Abnormal ECG When compared with ECG of 01-FEB-2022 14:24, Atrial fibrillation has replaced Sinus rhythm T wave inversion now evident in Lateral leads Referred By: Generic ED Physician Electronically Signed By:IRA MENEZES MD
[2022-02-05 08:54] VITALS: BP 132/81; PULSE 113; RESP 16; TEMP 36.6; O2SAT 97; BMI 21.1
[2022-02-05 12:23] LABS: MANUAL DIFF FLAG NO
[2022-02-05 12:24] LABS: Basophils Absolute Auto 0.1 X10*3/uL (0.0-0.2); Basophils Percent Auto 0.4 % (0-2); Eosinophils Absolute Auto 0.2 X10*3/uL (0.0-0.4); Eosinophils Percent Auto 1.2 % (0-4); Hematocrit 42.8 % (37.0-47.0); Hemoglobin 14.5 g/dl (12.0-16.0); Imm Gran Abs Auto 0.04 X10*3/uL (0.00-0.03); Imm Gran Pct Auto 0.3 % (0.0-0.4); Lymphocytes Absolute Auto 2.3 X10*3/uL (1.2-4.9); Lymphocytes Percent Auto 17.6 % (20-40); Mean Corpuscular HGB Conc 33.9 g/dl (31.0-35.0); Mean Corpuscular Hemoglobin 29.2 pg (27.0-33.0); Mean Corpuscular Volume 86.3 fL (80.0-98.0); Mean Platelet Volume 9.5 fL (9.4-12.3); Monocytes Absolute Auto 0.8 X10*3/uL (0.1-1.2); Monocytes Percent Auto 6.3 % (2-11); Neutrophils Absolute Auto 9.6 x10*3/uL (2.0-8.3); Neutrophils Percent Auto 74.2 % (45-73); Platelet Count 439 X10*3/uL (160-400); Red Blood Count 4.96 X10*6/uL (4.20-5.50); Red Cell Distribution Width 12.2 % (11.0-16.0); White Blood Count 12.9 X10*3/uL (4.8-10.8)
[2022-02-05 12:37] LABS: Anion Gap 18 (12-20); Blood Urea Nitrogen 14 mg/dL (9-16); Calcium 9.8 mg/dL (8.4-10.2); Carbon Dioxide 27 mmol/L (22-29); Chloride 93 mmol/L (96-108); Creatinine Clr Calc Pharmacy 53.8; Estimated Glomerular Filt Rate > 60; Glucose Random 133 mg/dL (60-115); Potassium 4.6 mmol/L (3.3-5.1); Sodium 133 mmol/L (135-145)
[2022-02-05 12:43] VITALS: BP 126/87; PULSE 87; RESP 23; TEMP 36.7; O2SAT 97
[2022-02-05 12:46] LABS: Troponin-I High Sensitivity 4.2 ng/L (<3.5-17.0)
--- NOTE | 2022-02-05 12:47 | ED_ITS ---
HPI - Arrhythmia/Palpitations General Chief Complaint: Arrhythmia/Palpitations Stated Complaint: chest pain Time Seen by Provider: 02/05/22 12:29 Source: patient Mode of arrival: ambulatory Limitations: no limitations History of Present Illness HPI narrative: Patient comes to the emergency room complaining of palpitations. Patient states that 4 days ago she was diagnosed with new onset atrial flutter, started on Eliquis 2.5 mg. Patient states that before she left the hospital, she was back in sinus rhythm. Today, patient was checking her blood pressure, and her heart rate was between 110 and 120. Patient occasionally feeling palpitations. No chest pain. 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 Patient's CTA scan f or pulmonary embolism was -4 days ago. Since then, patient has been on Eliquis. Patient denies lower extremity pain or edema. Related Data Home Medications Medication Instructions Recorded Confirmed albuterol sulfate 90 mcg/actuation 1 puff PO Q4H 11/14/21 aerosol inhaler fluticasone 250 mcg-salmeterol 50 1 ea inhalation BID 11/14/21 mcg/dose blistr powdr for inhalation (Advair Diskus) lisinopril 20 1 tab PO DAILY 11/14/21 mg-hydrochlorothiazide 12.5 mg tablet omeprazole 20 mg capsule,delayed 20 mg PO DAILY 11/14/21 release [employer] DAILY 01/04/22 Tylenol 2 tab PO DAILY PRN Headache 01/04/22 01/04/22 Vitamin C DAILY 01/04/22 calcium DAILY 01/04/22 vitamin E DAILY 01/04/22 Previous Rx's Medication Instructions Recorded apixaban 2.5 mg tablet (Eliquis) 2.5 mg PO BID atrial fibrilation 02/01/22 #60 tabs metoprolol succinate 25 mg 25 mg PO DAILY #30 tabs 02/05/22 tablet,extended release 24 hr (Toprol XL) Allergies Allergy/AdvReac Type Severity Reaction Status Date / Time No Known Allergies Allergy Verified 01/04/22 07:39 Review of Systems Review of Systems: Constitutional : No Weight loss, No Fever, No Chills, No Night Sweats, No Fatigue, No Malaise ENT/Mouth : No Hearing loss, No Ear Pain, No Nasal Congestion, No Sinus Pain, No Hoarseness, No sore throat, No Rhinorrhea, No Swallowing Difficulty Eyes: No Eye Pain, No Swelling, No Redness, No Foreign Body, No Discharge, No Vision Changes Cardiovascular : No Chest Pain, no orthopnea, chronic shortness of breath, intermittent palpitations Respiratory : No Cough, No Sputum, No Wheezing, No Smoke Exposure, chronic dyspnea Gastrointestinal : No Nausea, No Vomiting, No Diarrhea, No Constipation, No abdominal Pain, No Hematochezia, No Melena Genitourinary : no irregular bleeding, No Dysuria, No Urinary Frequency, No Hematuria, No Urinary Incontinence, No Urgency, No Flank Pain, No Urinary Flow Changes, No Hesitancy Musculoskeletal : No joint pain, No Myalgias, No Joint Swelling Skin : No Skin Lesions, No rash Neuro : No Weakness, No Numbness, No Paresthesias, No Loss of Consciousness, No Dizziness, No Headache Psych : No Anxiety/Panic, No Depression, No SI/HI/AH/VH, No Social Issues, Heme/Lymph: No Bruising, No Bleeding,No Lymphadenopathy Endocrine : No Polyuria, No Polydipsia, No Temperature Intolerance FOR[facility]LY [facility] Past Medical History Medical History (Updated 02/05/22 @ 14:26 by Courtney Abdullahi MD) Atrial fibrillation GERD (gastroesophageal reflux disease) History of melanoma HTN (hypertension) Lung cancer Osteoporosis Surgical History History of breast surgery History of cholecystectomy History of hysterectomy Hx of colonoscopy Social History Social History Patient Tobacco Use Status: Former Tobacco user Quit Date: 1986 Tobacco use type: Cigarette Years Smoked: 10 Use of substances other than those prescribed or required for medical reasons: No Advance Directives: No Advance Directives Information Provided: Yes Physical Exam Vital Signs: Vital Signs: Last Vital Signs Temp 98.1 F 02/05/22 12:43 Pulse 87 02/05/22 12:43 Resp 23 H 02/05/22 12:43 BP 126/87 02/05/22 12:43 Pulse Ox 97 02/05/22 12:43 O2 Del Method 02/05/22 12:43 BMI result Body Mass Index 21.1 Const: Other: Appearance: Alert. Oriented X3. No acute distress. Eyes: Pupils equal, round and reactive to light. ENT: Pharynx normal. Neck: Normal inspection. Neck supple. No lymph nodes noted. No crepitus CVS: Normal heart rate and rhythm. Pulses normal. Normal S1 and S2 Respiratory: No respiratory distress. Breath sounds normal. No Wheezing. No rales Abdomen: Soft and nontender. No rigidity. No distention. Skin: Skin warm and dry. Normal skin color. Normal skin turgor. Extremities: No lower extremity edema. No Lacerations. No Rash Neuro: Oriented X 3. No motor deficit. No sensory deficit. Moving all extremities. No slurred speech. CN 2 through 12 grossly intact Psych: calm, cooperative, normal affect Course Course Course Narrative: Patient seems to be back in sinus rhythm at this time, heart rate between 90 and 100. No lower extremity edema, patient well appearing. Patient's labs and imaging pending. Given that the patient is symptomatic with palpitations intermittently, blood pressure is stable, I will go ahead and start her on p.o. metoprolol Patient received 1 dose of p.o. metoprolol in the emergency room, prior to discharge heart rate 69, blood pressure 126/87 MDM - Arrhythmia/Palpitations Lab Data Result diagrams: 02/05/22 12:17 02/05/22 12:17 Labs: Lab Results 02/05/22 02/05/22 02/05/22 Range/Units 12:17 12:17 12:17 WBC 12.9 H (4.8-10.8) X10*3/uL RBC 4.96 (4.20-5.50) X10*6/uL Hgb 14.5 (12.0-16.0) g/dl Hct 42.8 (37.0-47.0) % MCV 86.3 (80.0-98.0) fL MCH 29.2 (27.0-33.0) pg MCHC 33.9 (31.0-35.0) g/dl RDW 12.2 (11.0-16.0) % Plt Count 439 H (160-400) X10*3/uL MPV 9.5 (9.4-12.3) fL Immature Gran % (Auto) 0.3 (0.0-0.4) % Neut % (Auto) 74.2 H (45-73) % Lymph % (Auto) 17.6 L (20-40) % [place] % (Auto) 6.3 (2-11) % Eos % (Auto) 1.2 (0-4) % Baso % (Auto) 0.4 (0-2) % Lymph # (Auto) 2.3 (1.2-4.9) X10*3/uL [place] # (Auto) 0.8 (0.1-1.2) X10*3/uL Eos # (Auto) 0.2 (0.0-0.4) X10*3/uL Baso # (Auto) 0.1 (0.0-0.2) X10*3/uL Abs Immat Gran (auto) 0.04 H (0.00-0.03) X10*3/uL Absolute Neuts (auto) 9.6 H (2.0-8.3) x10*3/uL Absolute Nucleated RBC 0.000 (0.0-0.012) X10*3/uL Nucleated RBC % (auto) 0.0 (0.0-0.2) /100WBC Sodium 133 L (135-145) mmol/L Potassium 4.6 D (3.3-5.1) mmol/L Chloride 93 L (96-108) mmol/L Carbon Dioxide 27 (22-29) mmol/L Anion Gap 18 (12-20) BUN 14 (9-16) mg/dL Creatinine 0.65 (0.5-1.4) mg/dL Estim Creat Clear Calc 53.8 Estimated GFR > 60 Random Glucose 133 H (60-115) mg/dL Calcium 9.8 (8.4-10.2) mg/dL Troponin I High Sens 4.2 (<3.5-17.0) ng/L B-Natriuretic Peptide 44 (<100) pg/mL Discharge Plan Discharge Clinical Impression: Atrial fibrillation and flutter Patient Disposition: Home, Self-Care Instructions: A-fib (Atrial Fibrillation) (ED) Additional Instructions: Please follow-up with your primary care physician tomorrow. If you have any worsening or new symptoms, please return to the emergency room or call 911 Prescriptions: New metoprolol succinate [Toprol XL] 25 mg tablet extended release 24 hr 25 mg PO DAILY Qty: 30 0RF No Action [employer] DAILY Vitamin C DAILY calcium DAILY vitamin E DAILY Tylenol 325 mg 2 tab PO DAILY PRN (Reason: Headache) Eliquis 2.5 mg tablet 2.5 mg PO BID Qty: 60 0RF omeprazole 20 mg capsule,delayed release(DR/EC) 20 mg PO DAILY lisinopril-hydrochlorothiazide 20-12.5 mg tablet 1 tab PO DAILY fluticasone propion-salmeterol [Advair Diskus] 250-50 mcg/dose blister with device 1 ea inhalation BID albuterol sulfate 90 mcg/actuation HFA aerosol inhaler 1 puff PO Q4H Referrals: Tad Lr MD [Physician] - 2 days
[2022-02-05] MEDS: Metoprolol Tartrate 25 MG TABLET PO (13:05)
[2022-02-05 13:20] LABS: B Type Natriuretic Peptide 44 pg/mL (<100)
== END 2022-02-05 15:13 | disposition home or self-care (01) ==
PROVIDERS: Emergency Provider Emergency Medicine; PCP Internal Medicine
DX: I48.91 Unspecified atrial fibrillation (principal); R06.02 Shortness of breath; Z87.891 Personal history of nicotine dependence; Z79.01 Long term (current) use of anticoagulants
CPT/HCPCS: 36415; 71045; 80048; 83880; 84484; 85025; 93005; 99283; 99285

== ENCOUNTER 2022-02-06 10:05 | Outpatient (REF) | payer MEDICARE, SELFPAY ==
--- NOTE | ~2022-02-06 | PE_ITS ---
EXAMINATION: Fluorine-18 FDG PET/CT Scan CLINICAL INDICATION: Initial treatment management. Malignant neoplasm of unspecified part of bronchus or lung. PROCEDURE: 53 minutes following the intravenous administration of 16.6 mCi of fluorine 18 FDG, images from the base of the skull to the mid thighs were obtained using a combined PET/CT scanner with CT scan based attenuation correction. No intravenous contrast was administered. Transverse, coronal, sagittal, and volume reconstruction projections were obtained. The patient's blood glucose could not be estimated due to malfunctioning of the glucometer. The radiotracer was injected intravenously through right antecubital superficial vein, without any complications. Total CT exam dose-length product 206.42 mGy-cm * These CT images were obtained using dose optimization techniques as appropriate, variously including the following: Automated exposure control * Adjustment of mA and/or kV according to patient size (this includes techniques or standardized protocols for targeted exams where dose is matched to indication/reason for exam; i.e. extremities or head) * Use of iterative reconstruction technique COMPARISON: CTA of the chest done on 02/01/2022. FINDINGS: NECK AND VISUALIZED HEAD: No FDG avid disease is present. THORAX: Previously documented, clinically known large lobulated soft tissue mass centering around the intermediate bronchus associated with collapse consolidation of right middle and right lower lobe, measuring approximately 7.2 x 6.0 cm shows intense FDG avidity with SUV max of 7.4 (70/223), highly suspicious for malignancy. Specific note is made of extension of the mass into the adjacent part of the mediastinum. There is no discrete separate FDG avid ipsilateral or contralateral mediastinal or hilar lymphadenopathy identified. Note is however made of presence of minimal FDG avid ipsilateral [id number] size right-sided pleural effusion with SUV max of 2.3 (79/233). Finding is suspicious for pleural disease involvement. Specific note is also made of presence of solitary FDG avid 1.1 cm inferior right axillary lymph node with SUV max of 3.1 (76/223), suspicious for metastatic involvement. This lymph node can be accessible for ultrasound-guided biopsy, if clinically appropriate. ABDOMEN AND PELVIS: No FDG avid disease within the liver or adrenal glands. [place] right adrenal mass without any FDG avidity with Hounsfield value of 12.6 (271/583) is most consistent with lipid rich incidental adrenal adenoma. Multifocal circumscribed hepatic hypodensities without any FDG avidity, most consistent with incidental hepatic cysts. Focal FDG avidity is noted within the sigmoid colon with underlying colonic diverticuli with SUV max of 5.3 (176/223), may represent inflammatory changes. Direct visualization/colonoscopy however may also be considered for further clarification, if not recently performed. ABDOMINAL AND PELVIC JOLLEY: There is a 1 cm mild FDG avid subcutaneous nodule present within the left mid lateral abdominal wall with SUV max of 2.2 (116/223). There is a 1.8 cm ill-defined soft tissue nodule associated with intense FDG avidity with SUV max of 4.3 (143/223), seen inseparable from the transversus abdominis musculature and abutting the tip of the left iliac bone (373/583). At the same level, within the subcutaneous fat involving the ipsilateral gluteal region, another approximately 1.6 cm ill-defined solid-appearing nodule associated with mild FDG avidity, SUV max of 1.9 (142/223) is also noted. All these soft tissue abnormality is highly suspicious for additional metastatic disease. These lesions can also be biopsied using imaging guidance, for definitive tissue diagnosis, if clinically appropriate. MUSCULOSKELETAL: Asymmetric subtle focal increased radiotracer activity is noted in the region of the right-sided L2-3 facet joint, may represent arthritic changes with SUV max of 4.0 (125/223). Focal area of sclerosis is noted involving the right humeral head without any FDG avidity. Increased midthoracic kyphosis and multilevel degenerative spondylosis. VASCULAR: Mild atherosclerotic disease of the aorta. No evidence of any aneurysm. PET/PET CT fusion skull to thigh IMPRESSION: 1. Previously documented, clinically known large lobulated soft tissue mass centering around the intermediate bronchus associated with collapse consolidation of the right middle and right lower lobe of the lung currently measures approximately 7.2 x 6.0 cm, shows intense FDG avidity with SUV max of 7.4, highly suspicious for malignancy. Note is made of extension of the mass into the adjacent part of the mediastinum. Note is also made of absence of separate FDG avid ipsilateral or contralateral mediastinal or hilar lymphadenopathy. 2. Note is made of FDG avid ipsilateral [id number] size right-sided pleural effusion with SUV max of 3.1, suspicious for metastatic pleural involvement. 3. FDG avid approximately 1.1 cm right inferior axillary soft tissue nodule. A similar appearing additional subcutaneous soft tissue nodules are also noted within the left mid lateral abdominal wall and left superior gluteal region. In addition, 1.8 cm soft tissue nodule with intense FDG avidity is seen within the left mid lateral abdominal wall inseparable from the transversus abdominis musculature abutting the tip of the left iliac bone. All of these soft tissue lesions likely represent additional metastatic disease involving lymph nodes versus subcutaneous soft tissue metastatic nodules. These lesions can be biopsied using imaging guidance, for definitive tissue diagnosis, if clinically appropriate. 4. No FDG avid disease within the liver or adrenal glands. Incidental note is made of right adrenal non-FDG avid lipid rich adrenal adenoma. 5. Focal FDG avidity within the sigmoid colon with SUV max of 5.3, may represent inflammatory changes. Direct visualization/colonoscopy however may also be considered for further clarification, if not recently performed. 6. Asymmetric subtle focal increased FDG avidity in the region of the right-sided L2-3 facet joint, may represent arthritic changes with SUV max of 4.0. Follow-up imaging is recommended for further clarification.
== END 2022-02-06 10:06 | disposition home or self-care (01) ==
LOC: HO.PET 10:05
PROVIDERS: Visit Provider Internal Medicine Pulmonary Disease
DX: Z13.89 Encounter for screening for other disorder (principal)

== ENCOUNTER → 2022-02-08 15:14 | Outpatient (BNVA) | payer MEDICARE, SELFPAY | PROVIDERS: PCP Internal Medicine; Visit Provider Internal Medicine Cardiovascular Disease | DX: I48.91 Unspecified atrial fibrillation (principal); C34.91 Malignant neoplasm of unspecified part of right bronchus or lung; Z79.01 Long term (current) use of anticoagulants | CPT/HCPCS: 93005; 99202 ==

== ENCOUNTER 2022-02-12 10:22 | Outpatient (REF) | payer MEDICARE, SELFPAY ==
--- NOTE | ~2022-02-12 | US_ITS ---
PROCEDURE: ULTRASOUND-GUIDED LYMPH NODE BIOPSY CLINICAL INFORMATION: Enlarged PET avid right axillary lymph node. COMPARISON: Previous PET/CT scan 02/06/[address] 02/01/2022. TECHNIQUE: Procedure and risks and benefits including bleeding and infection were discussed with the patient and informed consent was obtained. The right axilla was prepped and draped in the usual sterile fashion. The skin and soft tissues were anesthestized with 1% lidocaine plain. Using ultrasound guidance and a coaxial system, access to the right axillary lymph node was obtained. Five 20-gauge core biopsies were obtained, four placed in formalin and one placed in flow cytometry solution. There was no complication. FINDINGS: There is an abnormal-appearing 1.2 x 1.2 x 1.4 cm right axillary lymph node that was targeted for ultrasound-guided biopsy. This demonstrates normal ultrasound morphology with absent fatty hilum and abnormal cortical flow. US/US biopsy lymph node IMPRESSION: Right axillary lymph node biopsy.
[2022-02-12] MEDS: Lidocaine HCl 1 % MPF 5 ML VIAL SUBCUT (11:38)
== END 2022-02-12 10:23 | disposition home or self-care (01) ==
LOC: HO.US 10:22
PROVIDERS: Internal Medicine Medical Oncology; Radiology Diagnostic Radiology; Visit Provider Internal Medicine Pulmonary Disease
DX: C77.3 Secondary and unspecified malignant neoplasm of axilla and upper limb lymph nodes (principal); C34.90 Malignant neoplasm of unspecified part of unspecified bronchus or lung
CPT/HCPCS: 36415; 38505; 76942; 81210; 81235; 81275; 81276; 81479; 88305; 88341; 88342; 88360; 88374

== ENCOUNTER → 2022-02-13 10:24 | Outpatient (REF) | payer MEDICARE, SELFPAY ==
--- NOTE | 2022-02-13 10:27 | CA_ITS ---
Transthoracic Echocardiogram Patient (Last, First, Middle): Caterina Ojeda V Gender: Female Date of : 1945 Age: 76 Procedure Date: 02/13/2022 Procedure Type: Transthoracic Echocardiogram Location: OP Height: 152.4 cm Weight: 50.8 kg BSA: 1.46 m2 Heart Rate: bpm BP: 115 / 75 mmHg Demo Coordinator: [email or web address] Referring MD: Tad Lr MD Mud Trucker: Tad Lr MD Symptoms: I48.91 - Unspecified atrial fibrillation Study Quality: Adequate Conclusions: - Normal left ventricular size and systolic function. There is mildly increased left ventricular wall thickness. The visually estimated ejection fraction is between 60-65%. - Diastolic function is normal for age. - Normal right ventricular cavity size and systolic function. - There is mild tricuspid valve regurgitation. Normal right atrial pressure. There is no evidence of pulmonary hypertension. Findings Left Ventricle Normal left ventricular size and systolic function. There is mildly increased left ventricular wall thickness. The visually estimated ejection fraction is between 60-65%. There is no evidence of regional wall motion abnormalities. Diastolic function is normal for age. Right Ventricle Normal right ventricular cavity size and systolic function. Atria The left atrium was not well visualized. The right atrium is normal in size. Aortic Valve Normal aortic valve structure and function. There is no aortic valve stenosis. There is no aortic valve regurgitation. Mitral Valve The mitral valve appears normal. There is no mitral valve regurgitation. There is no mitral valve stenosis. Pulmonic Valve Normal pulmonic valve structure and function. There is trace pulmonic valve regurgitation. Tricuspid Valve Normal tricuspid valve structure and function. There is mild tricuspid valve regurgitation. Normal right atrial pressure. There is no evidence of pulmonary hypertension. Great Vessels All visible segments of the aorta are normal in size. The visualized portions of the pulmonary artery and branches are normal. Venous The inferior vena cava is normal in size and collapses greater than 50% with inspiration. Pericardium/Pleural There is no evidence of pericardial effusion. Prior Study Comparison No prior study available for comparison. Measurements 2D Linear Measurements IVSd: 1.00 0.6-0.9/0.6-1.0 cm LVIDd: 4.13 3.9-5.3/4.2-5.9 cm LVIDd Index: 2.83 2.4-3.2/2.2-3.1 cm/m2 LVIDs: 2.79 2.0-3.6 cm LVPWd: 0.94 0.7-1.1 cm LA Diam: 2.90 2.7-3.8/3.0-4.0 cm LAIDs Index: 1.99 1.5-2.3 cm/m2 LV Mass: 158.76 67-162/88-224 g LV Mass Index: 108.74 43-95/49-115 g/m2 LVOT Diam: 2.00 3.0+(-)1.3 cm 2D Systolic Function EF 4C: 53.40 >55% EF 2C: 63.80 >55% EF BiP: 59.40 >55% Mitral Valve MV Pk E: 0.64 MV PK A: 0.75 MV Decel Time: 174.00 E/A: 0.90 E'Lateral: 7.83 E'Medial: 6.74 E/E' Med: 9.50 E/E' Lat: 8.10 PHT: 51.00 MVA PHT: 4.31 Decel [place]: 3.67 Aortic Valve AoV Pk Zeus: 1.21 AoV Mn Zeus: 0.89 AoV VTI: 0.25 AoV Pk Grad: 6.00 Aov Mn Grad: 3.00 SEBASTIAN Cont.VTI: 2.37 LVOT LVOT Pk Zeus: 0.85 LVOT Mn Zeus: 0.56 LVOT VTI: 0.19 LVOT Pk Grad: 3.00 LVOT Mn Grad: 1.00 LVOT Diam: 2.00 LVOT Area: 3.14 Diastolic Function MV Pk E: 0.64 MV Pk A: 0.75 E/A: 0.90 E'Medial: 6.74 E/E' Med: 9.50 E' Laterial: 7.83 E/E' Lat: 8.10 Right Ventricle TAPSE (mm): 15.00 TVS' Zeus: 12.20 Tricuspid Valve TR Pk Zeus: 2.84 TR Pk Grad: 32.00 RA Press: 3.00 RVSP: 35.00 Great Vessels Aorta Sinus of Valsalva: 3.04 2.0-3.[address] [place]: 2.68 1.7-3.4 cm Ao Asc: 3.30 2.1-3.4 cm Updated in Other Vendor System with Status of Final Tad Lr MD electronically signed on 02/15/2022 6:03:47 PM with status of Final
== END ==
LOC: HO.CARD 10:24
PROVIDERS: Visit Provider Internal Medicine Cardiovascular Disease
DX: I48.91 Unspecified atrial fibrillation (principal)
CPT/HCPCS: 93306

== ENCOUNTER 2022-02-28 12:50 | Outpatient (REF) | payer MEDICARE, SELFPAY ==
--- NOTE | ~2022-02-28 | MR_ITS ---
EXAMINATION: MR BRAIN WITHOUT AND WITH CONTRAST CLINICAL INFORMATION: Headaches, lung cancer COMPARISON: None TECHNIQUE: Multiplanar multisequence MR imaging of the brain was obtained without and following the administration of 5 mL Gadavist intravenous contrast. FINDINGS: There is no acute infarct on diffusion-weighted imaging. Punctate focus of susceptibility artifact along the body of the right caudate, likely sequela of prior microhemorrhage. No extra-axial collection or mass effect/herniation. Scattered periventricular and deep white matter T2 FLAIR hyperintensities consistent with mild underlying microangiopathy. No hydrocephalus. The ventricles are normal in morphology and size. No abnormal parenchymal or extra-axial enhancement. The major flow voids at the skull base are preserved. The midline structures are normal. The cerebellar tonsils are normally positioned. The craniocervical junction is normal. Marrow signal is within normal limits. The visualized soft tissues are without significant abnormality. No signal abnormality within the paranasal sinuses or within the mastoid air cells. MR/MR head/brain wo/w con IMPRESSION: No acute intracranial abnormality or evidence of intracranial metastatic disease. Mild chronic microangiopathy.
== END 2022-02-28 12:51 | disposition home or self-care (01) ==
LOC: HO.MRI 12:50
PROVIDERS: Visit Provider Internal Medicine Medical Oncology
DX: C34.90 Malignant neoplasm of unspecified part of unspecified bronchus or lung (principal)
CPT/HCPCS: 70553

== ENCOUNTER 2022-03-12 13:30 | Inpatient (IN) | payer MEDICARE, SELFPAY ==
--- NOTE | ~2022-03-12 | CT_ITS ---
PROCEDURE: CT GUIDED INSERTION, PLEURAL TUNNEL CATHETER CLINICAL INFORMATION: Right malignant pleural effusion. COMPARISON: 03/13/2022 and studies dating back to 12/04/2021. TECHNIQUE: CT fluoroscopic-guided placement of right Pleurx catheter. This CT examination was performed using dose optimization techniques as appropriate, variously including the following: *Automated exposure control *Adjustment of mA and/or kV according to patient size (this includes techniques or standardized protocols for targeted exams where dose is matched to indication/reason for exam; i.e. extremities or head) *Use of iterative reconstruction technique DLP: 169 mGy-cm FINDINGS: Informed consent was obtained from the patient prior to the procedure. During this process, the procedure and potential alternatives were explained, along with the intended outcome and benefits. The risks of the procedure, as well as the risk of not doing the procedure, were discussed. The patient was given the opportunity to ask questions regarding the procedure and appeared competent to make medical decisions. A signed consent form which documents this discussion was placed in the medical record. Using sterile technique and CT fluoroscopic guidance the right lateral inferior pleural space was entered with guidewire placed within the pleural space. Following this, attention was turned to creating a tunnel for the Pleurx catheter about the right anterior lateral lower chest. The catheter was pulled through. Over the guidewire a peel-away catheter was placed and through the peel-away sheath, the Pleurx catheter with stiffener in place was positioned with catheter sideholes from the right lung base up to the apex. Approximately 1 L of clear yellow fluid was removed before patient had symptomatic coughing. The pleural puncture site was closed with a 4-0 absorbable probable suture with tissue glue placed over both skin sites. Patient tolerated procedure without difficulty. CT/CT insert pleurx cath IMPRESSION: Right Pleurx catheter placement as described. CONSCIOUS SEDATION: The patient received intravenous conscious sedation under my direct supervision. A registered nurse monitored the patient and the patient's vital signs throughout the procedure. The total sedation time was 32 minutes. A total of 1 mg of Versed and 50 mcg fentanyl was given for good effect.
--- NOTE | ~2022-03-12 | CT_ITS ---
EXAMINATION: CT CHEST WITH CONTRAST CLINICAL INFORMATION: Lung cancer. Question right increasing right pleural effusion. Pleurx catheter placement. COMPARISON: Previous chest x-ray most recent 02/09/2022 and chest CTA 02/01/2022 TECHNIQUE: Multidetector volumetric CT imaging of the chest was obtained after the administration of 65 mL of Omnipaque 350 intravenous contrast without immediate adverse reactions. Axial MIP volume rendering provided. Sagittal and coronal reformatted images were obtained. This CT examination was performed using dose optimization techniques as appropriate, variously including the following: *Automated exposure control *Adjustment of mA and/or kV according to patient size (this includes techniques or standardized protocols for targeted exams where dose is matched to indication/reason for exam; i.e. extremities or head) *Use of iterative reconstruction technique DLP: 79 mGy-cm FINDINGS: Exam is limited due to artifact from respiratory motion. LUNGS: Large central right lung mass encasing the middle and right lower lobe bronchi. There is abnormal soft tissue extending along the right mainstem bronchus and this abnormal soft tissue in the subcarinal region. There is likely postobstructive atelectasis/consolidation of the right middle and lower lobes. This does not appear appreciably changed from previous exam. There is also abnormal soft tissue surrounding the right upper lobe bronchus. Evaluation of the right upper lobe and left lung is limited due to artifact from respiratory motion. There is question of a 5 mm peripheral or subpleural left lower lobe nodule axial image 42 series 3. MEDIASTINUM: Right-sided mediastinal hilar and subcarinal lymphadenopathy/central right lung mass as described above. Mediastinal disease processes the midline. Displaced central mediastinal structures to the left from the increasing left pleural effusion. Normal heart size. No pericardial effusion. No appreciable coronary artery calcification. Normal caliber thoracic aorta. PLEURA: Increasing now moderate to large right pleural effusion. Increasing small left pleural effusion. AXILLA: Increasing subcutaneous nodule or axillary adenopathy on the right measuring 1.9 cm compared to 1 cm. UPPER ABDOMEN: Multiple low-attenuation liver lesions. These did not demonstrate increased activity on recent PET/CT. Stable 2 x 3 cm right adrenal lesion. Increasing subcutaneous nodule in the left upper quadrant measuring 1.2 cm compared to 0.6 cm. OSSEOUS STRUCTURES: Heterogeneous attenuation of the bones with multiple small lucencies, question metastatic disease versus osteopenia. Stable sclerotic lesion in the right proximal humerus. CT/CT chest w IV con IMPRESSION: Limited exam due to artifact from motion. Stable large central right lung mass extending into the right hilum and mediastinum versus adjacent adenopathy. Likely postobstructive atelectasis/consolidation of the right middle and right lower lobes that is stable. Increasing now large right pleural effusion and shift of the central mediastinal structures to the left. Increasing subcutaneous nodules in the right axilla and left upper quadrant. Fleischner guidelines were followed.
--- NOTE | ~2022-03-12 | XR_ITS ---
EXAMINATION: XR CHEST CLINICAL INFORMATION: Shortness of breath, hypoxia. COMPARISON: 02/05/2022. TECHNIQUE: 2 views of the chest were obtained. FINDINGS: Moderate right pleural effusion with superjacent hazy opacities. There are mild increased pulmonary vascular markings. The heart is mildly enlarged. The mediastinal structures are unremarkable. XR/XR chest 2V IMPRESSION: Moderate right pleural effusion represents interval increase in the previous study. Increased pulmonary vascular congestion as well.
[2022-03-12 14:15] VITALS: BP 148/92; PULSE 76; RESP 18; TEMP 36.4; O2SAT 98; BMI 21.7
--- NOTE | 2022-03-12 14:22 | PC.NURSE ---
Addendum entered by Billie Ibanez 03/12/22 14:23: RR 18-20. LS crackles to bases. Original Note: Pt brought down from oncology for follow up on increasing SOB. 2L via NC
[2022-03-12 14:30] VITALS: BP 144/90; PULSE 72; RESP 14; TEMP 36.4; O2SAT 97
--- NOTE | 2022-03-12 15:05 | ECG_ITS ---
Test Reason : DYSPNEA Blood Pressure : / mmHG Vent. Rate : 078 BPM Atrial Rate : 078 BPM P-R Int : 170 ms QRS Dur : 072 ms QT Int : 410 ms P-R-T Axes : 029 006 -10 degrees QTc Int : 467 ms Sinus rhythm with Premature supraventricular complexes Nonspecific ST and T wave abnormality Low voltage QRS Abnormal ECG When compared with ECG of 05-FEB-2022 08:55, Sinus rhythm has replaced Atrial fibrillation Nonspecific T wave abnormality now evident in Anterior leads T wave inversion no longer evident in Lateral leads ST more depressed Lateral leads Referred By: Angelika Be Electronically Signed By:IRA MENEZES MD
--- NOTE | 2022-03-12 15:28 | ED.SOB ---
HPI - SOB/Dyspnea General Chief Complaint: Dyspnea Stated Complaint: diff breathing from oncology Time Seen by Provider: 03/12/22 14:52 Source: patient Mode of arrival: wheelchair Limitations: no limitations History of Present Illness HPI Narrative: Patient is a 76-year-old female who comes to the emergency department from the Oncology Department. She is reporting increasing shortness of breath lately. Her daughter who is a nurse presented to her home today and found her O2 saturation on room air to be 85%. This occurred again at the Oncology office, therefore she was transported to the emergency department for further evaluation. She states that she has been newly diagnosed with lung cancer, she is not currently on any chemotherapy or radiation. Denies dizziness, lightheadedness, headache, chest pain, palpitations, nausea, vomiting, numbness or tingling of her extremities. Related Data Home Medications Medication Instructions Recorded Confirmed albuterol sulfate 90 mcg/actuation 1 puff PO Q4H 11/14/21 03/12/22 aerosol inhaler fluticasone 250 mcg-salmeterol 50 1 ea inhalation BID 11/14/21 03/12/22 mcg/dose blistr powdr for inhalation (Advair Diskus) lisinopril 20 1 tab PO DAILY 11/14/21 03/12/22 mg-hydrochlorothiazide 12.5 mg tablet omeprazole 20 mg capsule,delayed 20 mg PO DAILY 11/14/21 03/12/22 release lorazepam 0.5 mg tablet 0.5 mg PO BEDTIME 02/08/22 03/12/22 Probiotic 1 cap PO DAILY 03/12/22 03/12/22 acetaminophen 325 mg tablet 650 mg PO Q6H PRN Pain 03/12/22 03/12/22 Previous Rx's Medication Instructions Recorded apixaban 2.5 mg tablet (Eliquis) 2.5 mg PO BID atrial fibrilation 03/02/22 #60 tabs metoprolol succinate 25 mg 25 mg PO DAILY #30 tabs 03/02/22 tablet,extended release 24 hr (Toprol XL) oxycodone 5 mg tablet 5 mg PO Q8H PRN Breakthrough Pain, 03/07/22 Mild #30 tabs Allergies Allergy/AdvReac Type Severity Reaction Status Date / Time No Known Allergies Allergy Verified 03/12/22 11:55 Review of Systems Review of Systems: Constitutional : No Fever, No Chills ENT/Mouth : No sore throat, No Rhinorrhea, No Swallowing Difficulty Eyes: No Eye Pain, No Swelling, No Redness Cardiovascular : No Chest Pain, positive SOB, positive Orthopnea, p no Edema Respiratory : No Cough, No Sputum, No Wheezing, positive dyspnea Gastrointestinal : No Nausea, No Vomiting, No Diarrhea, No abdominal Pain, No Hematochezia, No Melena Genitourinary : No Dysuria, No Urinary Frequency, No Hematuria Musculoskeletal : No joint pain, No Myalgias Skin : No Skin Lesions, No rash Neuro : No Weakness, No Numbness, No Dizziness, No Headache Psych : No Anxiety/Panic, No Depression Heme/Lymph: No Bruising, No Lymphadenopathy Endocrine : No Polyuria, No Polydipsia Yes all other systems are reviewed and are negative [facility] Past Medical History Attestation statement: The following information was validated with the patient. Source: old records reviewed Medical History Atrial fibrillation (~2021) GERD (gastroesophageal reflux disease) History of melanoma HTN (hypertension) Lung cancer (~2021) Osteoporosis (~2016) Surgical History History of breast surgery History of bronchoscopy (~2021) History of cholecystectomy (~1999) History of colonoscopy History of hysterectomy (~1996) Family History Family History Mother Alzheimer disease Father Enlarged heart Brother Bladder cancer Prostate cancer Sister Bladder cancer Maternal Aunt Breast cancer Social History Social History Household Members: Spouse Housing: House Are you a primary pet caretaker to a significant other at home: No Do you presently have visiting nurse or other home services: No Alcohol intake: former Patient Tobacco Use Status: Former Tobacco user Quit Date: 1986 Tobacco use type: Cigarette Years Smoked: 10 +/- Advance Directives: Yes Advance Directives on File: Yes Advance Directives Date on File: 02/22/22 service: No Current occupational status: retired Physical Exam Vital Signs: Vital Signs: Last Vital Signs Temp 97.5 F 03/12/22 14:30 Pulse 72 11/28/22 14:30 Resp 14 03/12/22 14:30 BP 144/90 H 03/12/22 14:30 Pulse Ox 97 03/12/22 14:30 O2 Del Method 03/12/22 14:30 O2 Flow Rate 2 03/12/22 14:30 Oxygen Flow Rate 2 03/12/22 14:15 BMI result Body Mass Index 21.7 Appearance: Alert.?Oriented to person, place and time. No acute distress.?Normal affect. Frail. Eyes: Pupils equal, round and reactive to light.? ENT: Pharynx normal.?? Neck: Normal inspection.? Neck supple.?? CVS: Heart sounds normal. Normal heart rate and rhythm.? Pulses normal.?? Respiratory: No respiratory distress.? Lung sounds with faint expiratory wheezing on the left, lung sounds significantly diminished on the right. Abdomen: Soft and non-tender. Normoactive bowel sounds. Skin: Skin warm and dry.? Normal skin color.? Extremities: No lower extremity edema.? No calf ttp? Neuro: Moves all extremities spontaneously. Sensation intact bilaterally. No focal neuro deficits. Ambulates with normal steady gait. Course Course Course Narrative: Patient is a 68-year-old female with a past medical history of non-small cell lung carcinoma with abdominal metastasis, atrial fibrillation on Eliquis, interstitial lung disease, GERD, hypertension, osteoporosis. Presents to the emergency department today from oncology office for increasing shortness of breath and hypoxia on room air. At the time of examination she is on O2 at 2 L via nasal cannula with O2 saturation at 100%. No apparent respiratory distress. Lung sounds on the right are significantly decreased when compared to the left. She is afebrile without tachycardia or tachypnea. Will obtain CBC to evaluate for leukocytosis/ anemia, CMP to evaluate for abnormal electrolytes /abnormal renal function/ abnormal hepatic function, EKG and troponin to evaluate for ischemia/ACS. Chest x-ray to evaluate for effusion and will provide scheduled oxycodone. Reevaluation(s) Reevaluation #1: Troponin 17.8 EKG reveals a sinus rhythm, T-wave inversions in V2 and V3 appear new when compared to prior EKGs, no active chest pain, likely demand ischemia and unlikely ACS, however will obtain delta troponin. Chest x-ray reveals a moderate right pleural effusion with interval increase from prior study and increased pulmonary vascular congestion. BNP 46. Attempting to contact IR to determine whether they will perform thoracentesis. Per Dr. Veras patient will need thoracentesis/ PleurX catheter placement Time: 16:34 Reevaluation #2: Made contact with IR, patient must be off Eliquis for 2 full days before thoracentesis can be performed. Spoke with hospitalist, Dr. Hu, who accepts patient for inpatient admission. Patient agreeable with plan of care. Time: 17:22 Medications Administered Generic Name Dose Route Start Last Admin Trade Name Freq PRN Reason Stop Dose Admin Sodium Chloride 500 mls @ 80 mls/hr 03/12/22 18:30 03/12/22 19:27 Ns IV 03/13/22 00:44 80 mls/hr .Q6H15M VLADIMIR Administration Lorazepam 0.5 mg 03/12/22 21:00 03/12/22 20:31 Lorazepam 0.5 Mg Tablet PO 0.5 mg BEDTIME VLADIMIR Administration Discontinued Medications Generic Name Dose Route Start Last Admin Trade Name Freq PRN Reason Stop Dose Admin Oxycodone HCl 5 mg 03/12/22 15:29 03/12/22 16:12 Oxycodone Hcl Immed Release 5 Mg Tablet PO 03/12/22 15:30 5 mg ONCE ONE Administration MDM - SOB/Dyspnea Medical Records Attestation: I reviewed the patient's medical records. Lab Data Attestation: I reviewed the patient's lab results. Result diagrams: 03/12/22 15:51 03/12/22 15:51 Labs: Lab Results 03/12/22 03/12/22 03/12/22 Range/Units 15:51 15:51 15:51 WBC 11.2 H (4.8-10.8) X10*3/uL RBC 4.78 (4.20-5.50) X10*6/uL Hgb 13.4 (12.0-16.0) g/dl Hct 40.0 (37.0-47.0) % MCV 83.7 (80.0-98.0) fL MCH 28.0 (27.0-33.0) pg MCHC 33.5 (31.0-35.0) g/dl RDW 12.1 (11.0-16.0) % Plt Count 394 (160-400) X10*3/uL MPV 8.8 L (9.4-12.3) fL Immature Gran % (Auto) 0.4 (0.0-0.4) % Neut % (Auto) 69.5 (45-73) % Lymph % (Auto) 19.8 L (20-40) % [place] % (Auto) 7.4 (2-11) % Eos % (Auto) 2.5 (0-4) % Baso % (Auto) 0.4 (0-2) % Lymph # (Auto) 2.2 (1.2-4.9) X10*3/uL [place] # (Auto) 0.8 (0.1-1.2) X10*3/uL Eos # (Auto) 0.3 (0.0-0.4) X10*3/uL Baso # (Auto) 0.0 (0.0-0.2) X10*3/uL Abs Immat Gran (auto) 0.04 H (0.00-0.03) X10*3/uL Absolute Neuts (auto) 7.8 (2.0-8.3) x10*3/uL Absolute Nucleated RBC 0.000 (0.0-0.012) X10*3/uL Nucleated RBC % (auto) 0.0 (0.0-0.2) /100WBC Sodium 131 L (135-145) mmol/L Potassium 3.4 (3.3-5.1) mmol/L Chloride 92 L (96-108) mmol/L Carbon Dioxide 30 H (22-29) mmol/L Anion Gap 12 (12-20) BUN 12 (9-16) mg/dL Creatinine 0.61 (0.5-1.4) mg/dL Estim Creat Clear Calc 57.3 Estimated GFR > 60 Random Glucose 110 (60-115) mg/dL Calcium 9.5 (8.4-10.2) mg/dL Magnesium 1.8 (1.6-2.6) mg/dL Total Bilirubin 1.0 (0.0-1.0) mg/dL AST 13 (5-31) U/L ALT 12 (0-31) U/L Alkaline Phosphatase 69 (39-117) U/L Troponin I High Sens 17.8 H (<3.5-17.0) ng/L B-Natriuretic Peptide (<100) pg/mL Total Protein 6.3 L (6.5-8.0) g/dL Albumin 3.6 (3.5-5.0) g/dL COVID-19 (ALEJO) (Negative) COVID-19 Clin Com Influenza Type A (BENJIE) (Negative) Influenza Type B (BENJIE) (Negative) Influenza A & B Note 03/12/22 03/12/22 03/12/22 Range/Units 15:51 15:51 15:51 WBC (4.8-10.8) X10*3/uL RBC (4.20-5.50) X10*6/uL Hgb (12.0-16.0) g/dl Hct (37.0-47.0) % MCV (80.0-98.0) fL MCH (27.0-33.0) pg MCHC (31.0-35.0) g/dl RDW (11.0-16.0) % Plt Count (160-400) X10*3/uL MPV (9.4-12.3) fL Immature Gran % (Auto) (0.0-0.4) % Neut % (Auto) (45-73) % Lymph % (Auto) (20-40) % [place] % (Auto) (2-11) % Eos % (Auto) (0-4) % Baso % (Auto) (0-2) % Lymph # (Auto) (1.2-4.9) X10*3/uL [place] # (Auto) (0.1-1.2) X10*3/uL Eos # (Auto) (0.0-0.4) X10*3/uL Baso # (Auto) (0.0-0.2) X10*3/uL Abs Immat Gran (auto) (0.00-0.03) X10*3/uL Absolute Neuts (auto) (2.0-8.3) x10*3/uL Absolute Nucleated RBC (0.0-0.012) X10*3/uL Nucleated RBC % (auto) (0.0-0.2) /100WBC Sodium (135-145) mmol/L Potassium (3.3-5.1) mmol/L Chloride (96-108) mmol/L Carbon Dioxide (22-29) mmol/L Anion Gap (12-20) BUN (9-16) mg/dL Creatinine (0.5-1.4) mg/dL Estim Creat Clear Calc Estimated GFR Random Glucose (60-115) mg/dL Calcium (8.4-10.2) mg/dL Magnesium (1.6-2.6) mg/dL Total Bilirubin (0.0-1.0) mg/dL AST (5-31) U/L ALT (0-31) U/L Alkaline Phosphatase (39-117) U/L Troponin I High Sens (<3.5-17.0) ng/L B-Natriuretic Peptide 46 (<100) pg/mL Total Protein (6.5-8.0) g/dL Albumin (3.5-5.0) g/dL COVID-19 (ALEJO) Negative (Negative) COVID-19 Clin Com See Note Influenza Type A (BENJIE) Negative (Negative) Influenza Type B (BENJIE) Negative (Negative) Influenza A & B Note See Note Imaging Data Chest x-ray: Radiologist's impression: XR/XR chest 2V IMPRESSION: Moderate right pleural effusion represents interval increase in the previous study. Increased pulmonary vascular congestion as well. ECG Data Attestation: I personally reviewed and interpreted this ECG as follows: ECG interpretation date: 03/12/22 Prior ECG tracings: available for review Interpretation: Rate: 78 Rhythm: Sinus rhythm? Normal P waves.? Normal CELENA.?? Normal QRS complex.?? ST T wave :??No ST elevation, no ST depression, T-wave inversions in V1- V3 qTC: 467 prior studies:? January 2022 The study has been interpreted contemporaneously by me. Discharge Plan Discharge Clinical Impression: Pleural effusion, Acute respiratory failure with hypoxia, Non-small cell carcinoma of lung metastatic to abdomen Patient Disposition: Admitted As Inpatient
[2022-03-12 15:57] LABS: Basophils Percent Auto 0.4 % (0-2); Eosinophils Absolute Auto 0.3 X10*3/uL (0.0-0.4); Eosinophils Percent Auto 2.5 % (0-4); Hemoglobin 13.4 g/dl (12.0-16.0); Imm Gran Abs Auto 0.04 X10*3/uL (0.00-0.03); Imm Gran Pct Auto 0.4 % (0.0-0.4); Lymphocytes Absolute Auto 2.2 X10*3/uL (1.2-4.9); Lymphocytes Percent Auto 19.8 % (20-40); MANUAL DIFF FLAG NO; Mean Corpuscular HGB Conc 33.5 g/dl (31.0-35.0); Mean Corpuscular Volume 83.7 fL (80.0-98.0); Mean Platelet Volume 8.8 fL (9.4-12.3); Monocytes Absolute Auto 0.8 X10*3/uL (0.1-1.2); Monocytes Percent Auto 7.4 % (2-11); Neutrophils Absolute Auto 7.8 x10*3/uL (2.0-8.3); Neutrophils Percent Auto 69.5 % (45-73); Platelet Count 394 X10*3/uL (160-400); Red Blood Count 4.78 X10*6/uL (4.20-5.50); Red Cell Distribution Width 12.1 % (11.0-16.0); White Blood Count 11.2 X10*3/uL (4.8-10.8)
[2022-03-12 16:11] LABS: COVID-19 Test Negative (Negative); IDNOW Serial# BCCEAD1C
[2022-03-12 16:12] LABS: IDNOW Serial# 9DB6401D; Influenza A Negative (Negative); Influenza B2 Negative (Negative)
[2022-03-12] MEDS: oxyCODONE HCl Immed Release 5 MG TABLET PO ×2 (16:12→23:53)
[2022-03-12 16:16] LABS: Alanine Aminotransferase 12 U/L (0-31); Albumin Level 3.6 g/dL (3.5-5.0); Alkaline Phosphatase 69 U/L (39-117); Anion Gap 12 (12-20); Aspartate Amino Transferase 13 U/L (5-31); Blood Urea Nitrogen 12 mg/dL (9-16); Calcium 9.5 mg/dL (8.4-10.2); Carbon Dioxide 30 mmol/L (22-29); Chloride 92 mmol/L (96-108); Creatinine Clr Calc Pharmacy 57.3; Estimated Glomerular Filt Rate > 60; Glucose Random 110 mg/dL (60-115); Magnesium 1.8 mg/dL (1.6-2.6); Potassium 3.4 mmol/L (3.3-5.1); Sodium 131 mmol/L (135-145); Total Protein 6.3 g/dL (6.5-8.0)
[2022-03-12 16:20] LABS: B Type Natriuretic Peptide 46 pg/mL (<100); Troponin-I High Sensitivity 17.8 ng/L (<3.5-17.0)
--- NOTE | 2022-03-12 17:04 | PC.NURSE ---
patient req to use bathroom, obtained a bedside commode, pt 1 person assist to commode- pt became sob upon moving to commode, will continue to monitor
--- NOTE | 2022-03-12 18:07 | PHA.MEDREC ---
Pharmacy Consult ? Medication Reconciliation Pharmacy has completed the medication reconciliation. Patient and daughter reported all medications. Patient stopped alendronate due to stomach issues. Tiffanie Cunningham, PharmD
--- NOTE | 2022-03-12 18:20 | PM.IMHP ---
History of Present Illness Date of Service: 03/12/22 Attending physician on admission: Ana Hu Chief Complaint: Shortness of breath 68-year-old female with history of interstitial lung disease, atrial fibrillation anticoagulated with Eliquis, non-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 Veras, for evaluation of shortness of breath ongoing for about 1 week but worsening today. Her daughter who was a nurse found her to be hypoxic today at 85% on room air, she is not oxygen dependent. She states that the shortness of breath is worse with exertion and also endorses orthopnea, PND. She does endorse back and abdominal pain related to her cancer. She is also endorsing nausea for which she uses ondansetron at home. She has lost a total of 25 lb in the last 6 months and has had decreased oral intake. The lung cancer is newly diagnosed and is not yet on any chemotherapy or radiation. She denies any fevers, chills, lightheadedness, headaches, chest pain, palpitations, vomiting. In the ED, chest x-ray showed moderate right pleural effusion increased in size since previous study with increased pulmonary vascular congestion as well. On arrival, patient was afebrile, HR 84, respiratory rate 14, blood pressure 161/98 with oximetry of 91% on room air placed on 2 L via nasal cannula with improvement to 98%. There is a mild leukocytosis of 11.2, consistent with baseline. Creatinine 0.61, BUN 12, CO2 30, potassium 3.4, sodium 131, chloride 92. Initial troponin 17.8, repeat pending, BNP 46. COVID-19, influenza negative. Patient to be admitted for malignant pleural effusion secondary to non small cell lung cancer with acute hypoxic respiratory failure. Review of Systems Review of Systems: General: No fevers, malaise, +unintentional weight loss HEENT: No blurred vision, diplopia. Cardiovascular: No chest pain, palpitations, or leg edema Respiratory: +sob, +haji, +orthopnea, +PND. No wheezing, cough GI: +abd pain, +anorexia, +nausea. No vomiting, diarrhea, constipation, melena, hematochezia : No dysuria, hematuria, increased urinary frequency, decreased urinary output MSK: +low back pain. No myalgia Neuro: No headaches, weakness, paresthesias Skin: No rashes or lesions [facility] Medical History Atrial fibrillation (~2021) GERD (gastroesophageal reflux disease) History of melanoma HTN (hypertension) Lung cancer (~2021) Osteoporosis (~2016) Family History Mother Alzheimer disease Father Enlarged heart Brother Bladder cancer Prostate cancer Sister Bladder cancer Maternal Aunt Breast cancer Surgical History History of breast surgery History of bronchoscopy (~2021) History of cholecystectomy (~1999) History of colonoscopy History of hysterectomy (~1996) Social History Household Members: Spouse Housing: House Are you a primary rn managed care to a significant other at home: No Do you presently have visiting nurse or other home services: No Alcohol intake: former Patient Tobacco Use Status: Former Tobacco user Quit Date: 1986 Tobacco use type: Cigarette Years Smoked: 10 +/- Advance Directives: Yes Advance Directives on File: Yes Advance Directives Date on File: 02/22/22 service: No Current occupational status: retired [employer] Allergies Allergy/AdvReac Type Severity Reaction Status Date / Time No Known Allergies Allergy Verified 03/12/22 11:55 Active Medications: Current Medications Acetaminophen (Acetaminophen 325 Mg Tablet) 650 mg PO Q6H PRN PRN Reason: Pain, Mild (Pain Scale 1-3) Docusate Sodium (Docusate Sodium 100 Mg Capsule) 100 mg PO DAILY PRN PRN Reason: Constipation Sodium Chloride (Ns) 500 mls @ 80 mls/hr IV .Q6H15M [facility] Stop: 03/13/22 00:44 Ondansetron HCl (Ondansetron Hcl 4 Mg/2 Ml Vial) 4 mg IVPUSH Q8H PRN PRN Reason: Nausea and Vomiting Pharmacy Consult (Consult Rx Perform Med Rec) 1 each MISCELLANE ONCE PRN PRN Reason: Consult order Sodium Chloride (0.9 % Sodium Chloride Flush 3 Ml Syringe) [facility] Medications Medication Instructions Recorded Confirmed Last Taken Type albuterol sulfate 90 mcg/actuation 1 puff PO Q4H 11/14/21 03/12/22 Unknown History aerosol inhaler fluticasone 250 mcg-salmeterol 50 1 ea inhalation BID 11/14/21 03/12/22 Unknown History mcg/dose blistr powdr for inhalation (Advair Diskus) lisinopril 20 1 tab PO DAILY 11/14/21 03/12/22 Unknown History mg-hydrochlorothiazide 12.5 mg tablet omeprazole 20 mg capsule,delayed 20 mg PO DAILY 11/14/21 03/12/22 01/04/22 06:30 History release lorazepam 0.5 mg tablet 0.5 mg PO BEDTIME 02/08/22 03/12/22 Unknown History Probiotic 1 cap PO DAILY 03/12/22 03/12/22 Unknown History acetaminophen 325 mg tablet 650 mg PO Q6H PRN Pain 03/12/22 03/12/22 Unknown History Physical Exam Vital Signs and Narrative: Vital Signs: Last Vital Signs Temp 97.5 F 03/12/22 14:30 Pulse 72 03/12/22 14:30 Resp 14 03/12/22 14:30 BP 144/90 H 03/12/22 14:30 Pulse Ox 97 03/12/22 14:30 O2 Del Method 03/12/22 14:30 O2 Flow Rate 2 03/12/22 14:30 Oxygen Flow Rate 2 03/12/22 14:15 BMI result Body Mass Index 21.7 Constitutional - Awake and Alert, No apparent distress Eyes - PERRLA, EOMI Cardiovascular - S1S2, RRR, No edema Respiratory - Normal lung expansion, Normal respiratory effort, No respiratory distress on 2L O2, Dimished lung sounds RML and RLL, crackles left lower lobe Gastrointestinal - NT / ND; +BS; No rebound or guarding Extremities - no calf tenderness bilaterally, no swelling Skin - Warm/Dry Neurological - Alert & oriented x3, CN II-XII in tact, 5/5 strength BUE and BLE Psychological - Appropriate affect Results Labs CBC and Chem 7: 03/12/22 15:51 03/12/22 15:51 Labs: Laboratory Results - last 24 hr 03/12/22 03/12/22 03/12/22 15:51 15:51 15:51 MCV 83.7 MCH 28.0 MCHC 33.5 RDW 12.1 Plt Count 394 MPV 8.8 L Immature Gran % (Auto) 0.4 Neut % (Auto) 69.5 Lymph % (Auto) 19.8 L [place] % (Auto) 7.4 Eos % (Auto) 2.5 Baso % (Auto) 0.4 Lymph # (Auto) 2.2 [place] # (Auto) 0.8 Eos # (Auto) 0.3 Baso # (Auto) 0.0 Abs Immat Gran (auto) 0.04 H Absolute Neuts (auto) 7.8 Absolute Nucleated RBC 0.000 Nucleated RBC % (auto) 0.0 Anion Gap 12 Estim Creat Clear Calc 57.3 Estimated GFR > 60 Random Glucose 110 Calcium 9.5 Magnesium 1.8 Total Bilirubin 1.0 AST 13 ALT 12 Alkaline Phosphatase 69 Troponin I High Sens 17.8 H B-Natriuretic Peptide Total Protein 6.3 L Albumin 3.6 COVID-19 (ALEJO) COVID-19 Clin Com Influenza Type A (BENJIE) Influenza Type B (BENJIE) Influenza A & B Note 03/12/22 03/12/22 03/12/22 15:51 15:51 15:51 MCV MCH MCHC RDW Plt Count MPV Immature Gran % (Auto) Neut % (Auto) Lymph % (Auto) [place] % (Auto) Eos % (Auto) Baso % (Auto) Lymph # (Auto) [place] # (Auto) Eos # (Auto) Baso # (Auto) Abs Immat Gran (auto) Absolute Neuts (auto) Absolute Nucleated RBC Nucleated RBC % (auto) Anion Gap Estim Creat Clear Calc Estimated GFR Random Glucose Calcium Magnesium Total Bilirubin AST ALT Alkaline Phosphatase Troponin I High Sens B-Natriuretic Peptide 46 Total Protein Albumin COVID-19 (ALEJO) Negative COVID-19 Clin Com See Note Influenza Type A (BENJIE) Negative Influenza Type B (BENJIE) Negative Influenza A & B Note See Note Imaging Radiologist's Impressions: Impressions Chest X-Ray 03/12/22 15:30 IMPRESSION: Moderate right pleural effusion represents interval increase in the previous study. Increased pulmonary vascular congestion as well. Assessment and Plan (1) Pleural effusion: Status: Acute (2) Non-small cell carcinoma of lung metastatic to abdomen: Status: Acute (3) Acute respiratory failure with hypoxia: Status: Acute Plan 68-year-old female with history of interstitial lung disease, atrial fibrillation anticoagulated with Eliquis, non-small cell lung cancer with metastasis to the abdomen, GERD, history of melanoma, hypertension, and osteoporosis to be admitted for acute hypoxic respiratory failure secondary to pleural effusion and non-small cell lung cancer. # acute hypoxic respiratory failure- secondary to probable malignant pleural effusion related to non-small cell lung cancer -continue supplemental O2 to maintain oximetry greater than 94% -See below for further management # malignant right-sided pleural effusion- related to newly diagnosed non-small cell lung cancer -CXR with moderate right-sided pleural effusion increased vascular congestion. BNP unremarkable -will need IR drainage after Eliquis is held for 48 hours. Last dose of Eliquis taken at 09:00 this morning, 03/12 -continue supplemental O2 as above # newly diagnosed non-small lung cancer with metastasis to the abdomen -oncology consult placed, follows with Dr. Veras outpatient (seen earlier today). Reviewed note -not yet on any chemotherapy or radiation -ondansetron p.r.n. for nausea -Tylenol on oxycodone p.r.n. for breakthrough pain of the abdomen and low back related to her cancer -clear liquids tonight due to nausea, transition to regular diet tomorrow with ensures given intentional weight loss 20+ lb over the last 6 months # hyponatremia-likely secondary to lung cancer -Na 131, Cl 92. Urine electrolytes and creatinine pending -also likely dry given BUN, creatinine, and CO2. 500 mL IV NS ordered -follow BMP # paroxysmal atrial fibrillation-rate controlled -hold Eliquis for 48 hours prior to IR drainage as above -continue rate control # interstitial lung disease -continue Advair -albuterol as needed # GERD -continue PPI # anxiety -continue lorazepam -hypertension-blood pressure reasonably controlled -continue lisinopril and metoprolol DVT prophylaxis- mechanical, give lovenox tomorrow, then hold Full code Patient requires inpatient stay of at least 2 midnights due to acute hypoxic respiratory failure secondary to malignant pleural effusion requiring supplemental oxygen and holding of her anticoagulation for at least 48 hours so that pleural effusion can be drained. Quality Stroke Does the patient have a stroke diagnosis?: No VTE Prior VTE?: No VTE Risk Level:: Medical - moderate - high VTE Device Contraindication: N/A - Device Ordered VTE Drug Contraindication: Treatment Not Indicated
[2022-03-12] MEDS: 0.9 % Sodium Chloride 500 ML 80 ML IV (19:27)
[2022-03-12 19:38] LABS: Troponin-I High Sensitivity 18.6 ng/L (<3.5-17.0)
--- NOTE | 2022-03-12 20:05 | PC.NURSE ---
Assumed care of pt. at 1900. Pt. sitting up in bed with daughter at beside. Placed an IV and begain IVF per MAR. Pt. denies pain at this time. just went home and lights turned down and bed lowered so pt. can rest. Pt. requesting nighttime meds. Will medicate per MAR.
[2022-03-12] MEDS: LORazepam 0.5 MG TABLET PO (20:31)
--- NOTE | 2022-03-12 20:33 | PC.NURSE ---
Helped pt. to commode to urinate. Pt. O2 drops when ambulating to about 85. Recovered quickly upon settling back in bed up to 95% on 2L O2.
[2022-03-12 21:57] LABS: Osmolality Urine 274 mosm/kg (373-1093)
[2022-03-12 22:03] LABS: Creatinine Urine 50.31 mg/dL; Potassium Urine Random 15.7 mmol/L
[2022-03-12 23:21] VITALS: BP 113/92; PULSE 87; RESP 25; TEMP 36.8; O2SAT 95
[2022-03-13] MEDS: Albuterol Sulfate (0.083%) 2.5 MG/3 ML VIAL.NEB INHALE (00:02)
[2022-03-13 00:04] VITALS: PULSE 85; RESP 18; O2SAT 96
--- NOTE | 2022-03-13 03:17 | PC.NURSE ---
11:45 pm 03/12/22. Pt reports that pain has returned and having increased SOB. MD put in order for inhaler, however, pharmacy doesn't have in the building at this time. Pt. had her own inhaler, however, it was felt that a breathing treatment would be more effective. Respiratory called and completed breathing treatment. Pt. medicated for pain per JUN and reported effectiveness as she was able to sleep.
[2022-03-13] MEDS: Docusate Sodium 100 MG CAPSULE PO (03:52)
[2022-03-13] MEDS: ondansetron HCL 4 MG/2 ML VIAL IVPUSH (06:33)
[2022-03-13] MEDS: Omeprazole 20 MG CAPSULE.DR PO (06:33)
--- NOTE | 2022-03-13 06:40 | PC.NURSE ---
Pt. up to use commode and had a bm. Pt. feeling nauseous and medicated with PRN zofran.
[2022-03-13 07:34] LABS: Anion Gap 12 (12-20); Blood Urea Nitrogen 12 mg/dL (9-16); Carbon Dioxide 28 mmol/L (22-29); Chloride 94 mmol/L (96-108); Creatinine Clr Calc Pharmacy 62.5; Estimated Glomerular Filt Rate > 60; Glucose Random 134 mg/dL (60-115); Potassium 3.2 mmol/L (3.3-5.1); Sodium 131 mmol/L (135-145)
[2022-03-13 08:50] VITALS: PULSE 92; RESP 16; O2SAT 93
[2022-03-13] MEDS: Fluticasone/Vilanterol 100/25 BLST.W.DEV 1 PUFF INHALE (08:50)
[2022-03-13] MEDS: Metoprolol Succinate ER 25 MG TAB.ER.24H PO (08:59)
[2022-03-13] MEDS: oxyCODONE HCl Immed Release 5 MG TABLET PO ×3 (08:59→21:37)
[2022-03-13] MEDS: lisinopriL 20 MG TABLET PO (08:59)
[2022-03-13] MEDS: Potassium Chloride Packet 20 MEQ PACKET 40 MEQ PO (09:00)
[2022-03-13] MEDS: 0.9 % Sodium Chloride Flush 3 ML SYRINGE IVFLUSH ×3 (09:00→20:14)
[2022-03-13] MEDS: Enoxaparin Sodium 40 MG/0.4 ML SYRINGE SUBCUT (09:01)
--- NOTE | 2022-03-13 09:03 | P.PNIM_ITS ---
Subjective Subjective Date of Service: 03/13/22 Interval History: Seen in follow-up for hypoxia secondary to malignant pleural effusion with recently diagnosed non-small cell lung cancer with metastasis to the abdomen Interval history: Patient is resting comfortably on 2 L supplemental O2. Denies any shortness of breath, lightheadedness, palpitations, chest pain. She does have minimal cough with sputum production unchanged from baseline. She has been able to eat a small amount and is drinking Ensure. Denies any ongoing nausea at this time. She is reporting 8/10 abdominal pain and requesting her oxycodone. Review of Systems General: No fevers, malaise, unintentional weight loss HEENT: No blurred vision, diplopia. No sore throat, nasal congestion, rhinorrhea, sinus pain, ear pain Cardiovascular: No chest pain, palpitations, or leg edema Respiratory: No shortness of breath, wheezing, cough GI: +nausea. No nausea, vomiting, diarrhea, constipation, melena, hematochezia : No dysuria, hematuria, increased urinary frequency, decreased urinary output MSK: No myalgia, back pain Neuro: No headaches, weakness, paresthesias Skin: No rashes or lesions Physical Exam Vital Signs: Vital Signs: Last Vital Signs Temp 98.3 F 03/12/22 23:21 Pulse 92 03/13/22 08:50 Resp 16 03/13/22 08:50 BP 113/92 H 03/12/22 23:21 Pulse Ox 95 03/12/22 23:21 O2 Del Method 03/12/22 23:21 O2 Flow Rate 3 03/12/22 23:21 Oxygen Flow Rate 2 03/12/22 14:15 BMI result Body Mass Index 21.7 Constitutional - Awake and Alert, No apparent distress Eyes - PERRLA, EOMI Cardiovascular - S1S2, RRR, No edema Respiratory - Normal lung expansion, Normal respiratory effort, No respiratory distress on 2L supplemental O2, diminished lung sound RML and RLL, otherwise CTA Gastrointestinal - NT / ND; +BS; No rebound or guarding Extremities - no calf tenderness bilaterally, no swelling Skin - Warm/Dry Neurological - Alert & oriented x3 Psychological - Appropriate affect Objective Data Active Medications Acetaminophen (Acetaminophen 325 Mg Tablet) 650 mg PO Q6H PRN PRN Reason: Pain, Mild (Pain Scale 1-3) Albuterol Sulfate (Albuterol Sulfate (0.083%) 2.5 Mg/3 Ml Vial.Neb) 2.5 mg INHALE Q4H PRN PRN Reason: Shortness of Breath/Wheezing Last Admin: 03/13/22 00:02 Dose: 2.5 mg Documented By: NIRU Docusate Sodium (Docusate Sodium 100 Mg Capsule) 100 mg PO DAILY PRN PRN Reason: Constipation Last Admin: 03/13/22 03:52 Dose: 100 mg Documented By: WANDER Fluticasone/Vilanterol (Fluticasone/Vilanterol 100/25 Blst.W.Dev) 1 puff INHALE RBID [facility] Last Admin: 03/13/22 08:50 Dose: 1 puff Documented By: ERROL Lisinopril (Lisinopril 20 Mg Tablet) 20 mg PO DAILY [facility] Last Admin: 03/13/22 08:59 Dose: 20 mg Documented By: SANGITA Lorazepam (Lorazepam 0.5 Mg Tablet) 0.5 mg PO BEDTIME [facility] Last Admin: 03/12/22 20:31 Dose: 0.5 mg Documented By: WANDER Metoprolol Succinate (Metoprolol Succinate Er 25 Mg Tab.Er.24h) 25 mg PO DAILY [facility]; Protocol Last Admin: 03/13/22 08:59 Dose: 25 mg Documented By: SANGITA Omeprazole (Omeprazole 20 Mg Capsule.Dr) 20 mg PO DAILY@0630 [facility] Last Admin: 03/13/22 06:33 Dose: 20 mg Documented By: WANDER Ondansetron HCl (Ondansetron Hcl 4 Mg/2 Ml Vial) 4 mg IVPUSH Q8H PRN PRN Reason: Nausea and Vomiting Last Admin: 03/13/22 06:33 Dose: 4 mg Documented By: WANDER Oxycodone HCl (Oxycodone Hcl Immed Release 5 Mg Tablet) 5 mg PO Q8H PRN PRN Reason: Breakthrough Pain, back/abd Last Admin: 03/13/22 08:59 Dose: 5 mg Documented By: SANGITA Pharmacy Consult (Consult Rx Perform Med Rec) 1 each MISCELLANE ONCE PRN PRN Reason: Consult order Sodium Chloride (0.9 % Sodium Chloride Flush 3 Ml Syringe) 3 ml IVFLUSH QSHIFT [facility] Last Admin: 03/13/22 09:00 Dose: 3 ml Documented By: SANGITA Labs CBC & Chem 7: 03/12/22 15:51 03/13/22 06:57 Labs: Laboratory Results - last 24 hr 03/12/22 03/12/22 03/12/22 15:51 15:51 15:51 MCV 83.7 MCH 28.0 MCHC 33.5 RDW 12.1 Plt Count 394 MPV 8.8 L Immature Gran % (Auto) 0.4 Neut % (Auto) 69.5 Lymph % (Auto) 19.8 L Hickman % (Auto) 7.4 Eos % (Auto) 2.5 Baso % (Auto) 0.4 Lymph # (Auto) 2.2 Hickman # (Auto) 0.8 Eos # (Auto) 0.3 Baso # (Auto) 0.0 Abs Immat Gran (auto) 0.04 H Absolute Neuts (auto) 7.8 Absolute Nucleated RBC 0.000 Nucleated RBC % (auto) 0.0 Anion Gap 12 Estim Creat Clear Calc 57.3 Estimated GFR > 60 Random Glucose 110 Calcium 9.5 Magnesium 1.8 Total Bilirubin 1.0 AST 13 ALT 12 Alkaline Phosphatase 69 Troponin I High Sens 17.8 H B-Natriuretic Peptide Total Protein 6.3 L Albumin 3.6 Urine Osmolality Ur Random Sodium Ur Random Potassium Urine Creatinine COVID-19 (ALEJO) COVID-19 Clin Com Influenza Type A (BENJIE) Influenza Type B (BENJIE) Influenza A & B Note 03/12/22 03/12/22 03/12/22 15:51 15:51 15:51 MCV MCH MCHC RDW Plt Count MPV Immature Gran % (Auto) Neut % (Auto) Lymph % (Auto) Hickman % (Auto) Eos % (Auto) Baso % (Auto) Lymph # (Auto) Hickman # (Auto) Eos # (Auto) Baso # (Auto) Abs Immat Gran (auto) Absolute Neuts (auto) Absolute Nucleated RBC Nucleated RBC % (auto) Anion Gap Estim Creat Clear Calc Estimated GFR Random Glucose Calcium Magnesium Total Bilirubin AST ALT Alkaline Phosphatase Troponin I High Sens B-Natriuretic Peptide 46 Total Protein Albumin Urine Osmolality Ur Random Sodium Ur Random Potassium Urine Creatinine COVID-19 (ALEJO) Negative COVID-19 Clin Com See Note Influenza Type A (BENJIE) Negative Influenza Type B (BENJIE) Negative Influenza A & B Note See Note 03/12/22 03/12/22 03/12/22 19:13 21:25 21:25 MCV MCH MCHC RDW Plt Count MPV Immature Gran % (Auto) Neut % (Auto) Lymph % (Auto) Hickman % (Auto) Eos % (Auto) Baso % (Auto) Lymph # (Auto) Hickman # (Auto) Eos # (Auto) Baso # (Auto) Abs Immat Gran (auto) Absolute Neuts (auto) Absolute Nucleated RBC Nucleated RBC % (auto) Anion Gap Estim Creat Clear Calc Estimated GFR Random Glucose Calcium Magnesium Total Bilirubin AST ALT Alkaline Phosphatase Troponin I High Sens 18.6 H B-Natriuretic Peptide Total Protein Albumin Urine Osmolality 274 L Ur Random Sodium 39.0 Ur Random Potassium 15.7 Urine Creatinine 50.31 COVID-19 (ALEJO) COVID-19 Clin Com Influenza Type A (BENJIE) Influenza Type B (BENJIE) Influenza A & B Note 03/13/22 06:57 MCV MCH MCHC RDW Plt Count MPV Immature Gran % (Auto) Neut % (Auto) Lymph % (Auto) Hickman % (Auto) Eos % (Auto) Baso % (Auto) Lymph # (Auto) Hickman # (Auto) Eos # (Auto) Baso # (Auto) Abs Immat Gran (auto) Absolute Neuts (auto) Absolute Nucleated RBC Nucleated RBC % (auto) Anion Gap 12 Estim Creat Clear Calc 62.5 Estimated GFR > 60 Random Glucose 134 H Calcium 9.0 Magnesium Total Bilirubin AST ALT Alkaline Phosphatase Troponin I High Sens B-Natriuretic Peptide Total Protein Albumin Urine Osmolality Ur Random Sodium Ur Random Potassium Urine Creatinine COVID-19 (ALEJO) COVID-19 Clin Com Influenza Type A (BENJIE) Influenza Type B (BENJIE) Influenza A & B Note Assessment and Plan (1) Acute respiratory failure with hypoxia: Status: Acute (2) Pleural effusion: Status: Acute (3) Non-small cell carcinoma of lung metastatic to abdomen: Status: Acute Plan 68-year-old female with history of interstitial lung disease, atrial fibrillation anticoagulated with Eliquis, non-small cell lung cancer with metastasis to the abdomen, GERD, history of melanoma, hypertension, and osteop orosis to be admitted for acute hypoxic respiratory failure secondary to pleural effusion and non-small cell lung cancer. # acute hypoxic respiratory failure- secondary to probable malignant pleural effusion related to non-small cell lung cancer -continue supplemental O2 to maintain oximetry greater than 94% -See below for further management # malignant right-sided pleural effusion- related to newly diagnosed non-small cell lung cancer -CXR with moderate right-sided pleural effusion increased vascular congestion.? BNP unremarkable -will need IR drainage after Eliquis is held for 48 hours.? Last dose of Eliquis taken at 09:00, 03/12. Consider IR drainage tomorrow 03/14 -continue supplemental O2 as above # newly diagnosed non-small lung cancer with metastasis to the abdomen -Appreciate oncology input, follows with Dr. Veras outpatient -not yet on any chemotherapy or radiation -ondansetron p.r.n. for nausea -Tylenol and home oxycodone p.r.n. for breakthrough pain of the abdomen and low back related to her cancer -Regular diet tomorrow with ensures given intentional weight loss 20+ lb over the last 6 months. Nutrition consult placed # hyponatremia- chronic r/t SIADH secondary to lung cancer -Given 500ml NS. Na 131, Cl 94 this am, stable. -Ur osmolality 274, Ur K 15.7, Ur Na 39, Ur Cr 50.31. Renal function normal (creat 0.56, BUN 12) #Hypokalemia -Mild with K 3.2 -Hold HCTZ -40meq KCL PO ordered -Recheck K @4pm -Follow BMP # paroxysmal atrial fibrillation-rate controlled -hold Eliquis for 48 hours prior to IR drainage as above -continue rate control # interstitial lung disease -continue Advair -albuterol as needed # GERD -continue PPI # anxiety -continue lorazepam -hypertension-blood pressure reasonably controlled -continue lisinopril and metoprolol DVT prophylaxis- mechanical, give lovenox tomorrow, then hold Full code Patient requires ongoing inpatient stay due to acute hypoxic respiratory failure secondary to malignant pleural effusion requiring supplemental oxygen with IR drainage of pleural effusion. Quality Stroke Does the patient have a stroke diagnosis?: No VTE Prior VTE?: No VTE Risk Level:: Medical - moderate - high VTE Device Contraindication: N/A - Device Ordered VTE Drug Contraindication: Treatment Not Indicated
[2022-03-13] MEDS: Acetaminophen 325 MG TABLET 650 MG PO (11:21)
[2022-03-13 13:36] VITALS: BP 141/93; PULSE 77; RESP 29; O2SAT 94
--- NOTE | 2022-03-13 16:07 | MHC.CM.PN ---
CM SPOKE WITH PT AND SPOUSE YEVGENIY. LIVES WITH SPOUSE IN A SINGLE FAMILY HOME. DAUGHTER WILL BE AVAILABLE FOR ASSIST WHEN PT DC HOME. USES NO SERVICES OR DME. COVID VAX X 4 + HCP PCP DR. OZUNA DP: HOME WITH FAMILY SUPPORT, SPOUSE WILL TRANSPORT
--- NOTE | 2022-03-13 17:36 | P.CNHO_ITS ---
Subjective - Subjective Chief complaint: Consult for: Lung cancer. Patient: known to practice within the last 3 years Consult date: 03/13/22 Requesting Physician: Cherelle Moore. Primary Care Provider: Dereje Banks MD Medical Summary: DIAGNOSIS: NON-SMALL CELL LUNG CARCINOMA. PLEURAL EFFUSION. HPI - Consult Narrative Reason for consult: Consult for: Non-small cell lung carcinoma. Narrative: Caterina Ojeda is a pleasant 76 year old lady, with history of interstitial lung disease, atrial fibrillation anticoagulated with Eliquis, non-small cell lung cancer with metastasis to the abdomen, GERD, history of melanoma, hypertension, and osteoporosis, was referred to ED from oncology, for evaluation of shortness of breath ongoing for about 1 week but worsening today. Her daughter who is a nurse found her to be hypoxic today at 85% on room air, she is not oxygen dependent. She states that the shortness of breath is worse with exertion and also endorses orthopnea, PND. She does endorse back and abdominal pain related to her cancer. She is also c/o nausea for which she uses Zofran at home. She has lost a total of 25 lb in the last 6 months and has had decreased oral intake. The lung cancer is newly diagnosed and is not yet on any chemotherapy or radiation. She denies any fevers, chills, lightheadedness, headaches, chest pain, palpitations, vomiting. In the ED, chest x-ray showed moderate right pleural effusion increased in size since previous study with increased pulmonary vascular congestion as well. She was afebrile, HR 84, respiratory rate 14, blood pressure 161/98 with oximetry of 91% on room air placed on 2 L via nasal cannula with improvement to 98%. There is a mild leukocytosis of 11.2, consistent with baseline. Creatinine 0.61, BUN 12, CO2 30, potassium 3.4, sodium 131, chloride 92. Initial troponin 17.8, repeat pending, BNP 46. COVID-19, influenza negative. Review of Systems Review of Systems: General: No fevers, malaise, +unintentional weight loss HEENT: No blurred vision, diplopia. Cardiovascular: No chest pain, palpitations, or leg edema Respiratory: +sob, +haji, +orthopnea, +PND. No wheezing, cough GI: +abd pain, +anorexia, +nausea. No vomiting, diarrhea, constipation, melena, hematochezia : No dysuria, hematuria, increased urinary frequency, decreased urinary output MSK: +low back pain. No myalgia Neuro: No headaches, weakness, paresthesias Skin: No rashes or lesions [facility]: Medical History: Atrial fibrillation (~2021) GERD (gastroesophageal reflux disease) History of melanoma HTN (hypertension) Lung cancer (~2021) Osteoporosis (~2016) Review of Systems - Constitutional Reports system reviewed and no additional complaints, except as documented, Reports anorexia, Reports lack of energy, Reports malaise, Reports weakness, Reports weight loss - Eyes Reports system reviewed and no additional complaints, except as documented - ENT Reports system reviewed and no additional complaints, except as documented - Cardiovascular Reports system reviewed and no additional complaints, except as documented, Reports shortness of breath - Respiratory Reports no additional respiratory complaints, Reports dyspnea, Reports dyspnea on exertion - Gastrointestinal Reports system reviewed and no additional complaints, except as documented - Genitourinary Reports no additional female genitourinary complaints - Musculoskeletal Reports system reviewed and no additional complaints, except as documented - Integumentary/Breasts Skin/Breast: Reports no additional skin complaints - Neurologic Reports system reviewed and no additional complaints, except as documented - Psychiatric Reports system reviewed and no additional complaints, except as documented - Endocrine Reports no additional endocrine complaints - Hematologic/Lymphatic Reports system reviewed and no additional complaints, except as documented - Allergic/Immunologic Reports system reviewed and no additional complaints, except as documented Oncology Screenings - ECOG Performance Status ECOG Performance Status: 2 [facility] Medical History: Medical History (Last Updated 03/15/22 @ 12:22 by Isabelle Richards [facility]) Atrial fibrillation Onset Date: ~2021 GERD (gastroesophageal reflux disease) History of melanoma HTN (hypertension) Lung cancer Onset Date: ~2021 Osteoporosis Onset Date: ~2016 Functional capacity: wheelchair bound Patient : No Family History: Family History (Last Reviewed 03/12/22 @ 18:27 by MIN Galindo) Mother Alzheimer disease Father Enlarged heart Brother Bladder cancer Prostate cancer Sister Bladder cancer Maternal Aunt Breast cancer Surgical History: Surgical History (Last Reviewed 03/14/22 @ 13:57 by Roxy Polanco, PT) History of breast surgery History of bronchoscopy Onset Date: ~2021 History of cholecystectomy Onset Date: ~1999 History of colonoscopy History of hysterectomy Onset Date: ~1996 Social History: Social History (Last Reviewed 03/12/22 @ 18:27 by MIN Galindo) Living Situation History: Household Members: Spouse Housing: House Are you a primary manager medicare marketing to a significant other at home: No Do you presently have visiting nurse or other home services: No Tobacco History: Patient Tobacco Use Status: Former Tobacco user Tobacco use type: Cigarette Years Smoked: 10 +/- Smoke Quit Date: 1981 Second Hand Smoke Exposure: No Advance Directives: Advance Directives Date on File: 02/22/22 Occupation Assessmet: [employer] service: No Current occupational status: retired Home Medications and Allergies Current Medications: Current Medications Acetaminophen (Acetaminophen 325 Mg Tablet) 650 mg PO Q6H PRN PRN Reason: Pain, Mild (Pain Scale 1-3) Last Admin: 03/13/22 11:21 Dose: 650 mg Albuterol Sulfate (Albuterol Sulfate (0.083%) 2.5 Mg/3 Ml Vial.Neb) 2.5 mg INHALE Q4H PRN PRN Reason: Shortness of Breath/Wheezing Last Admin: 03/13/22 00:02 Dose: 2.5 mg Docusate Sodium (Docusate Sodium 100 Mg Capsule) 100 mg PO DAILY PRN PRN Reason: Constipation Last Admin: 03/13/22 03:52 Dose: 100 mg Fluticasone/Vilanterol (Fluticasone/Vilanterol 100/25 Blst.W.Dev) 1 puff INHALE RDAILY [facility] Lisinopril (Lisinopril 20 Mg Tablet) 20 mg PO DAILY [facility] Last Admin: 03/13/22 08:59 Dose: 20 mg Lorazepam (Lorazepam 0.5 Mg Tablet) 0.5 mg PO BEDTIME [facility]AD[facility]IR Last Admin: 03/12/22 20:31 Dose: 0.5 mg Metoprolol Succinate (Metoprolol Succinate Er 25 Mg Tab.Er.24h) 25 mg PO DAILY [facility]; Protocol Last Admin: 03/13/22 08:59 Dose: 25 mg Omeprazole (Omeprazole 20 Mg Capsule.Dr) 20 mg PO DAILY@0630 [facility] Last Admin: 03/13/22 06:33 Dose: 20 mg Ondansetron HCl (Ondansetron Hcl 4 Mg/2 Ml Vial) 4 mg IVPUSH Q8H PRN PRN Reason: Nausea and Vomiting Last Admin: 03/13/22 06:33 Dose: 4 mg Oxycodone HCl (Oxycodone Hcl Immed Release 5 Mg Tablet) 5 mg PO Q8H PRN PRN Reason: Breakthrough Pain, back/abd Last Admin: 03/13/22 08:59 Dose: 5 mg Pharmacy Consult (Consult Rx Perform Med Rec) 1 each MISCELLANE ONCE PRN PRN Reason: Consult order Sodium Chloride (0.9 % Sodium Chloride Flush 3 Ml Syringe) [facility] Last Admin: 03/13/22 16:30 Dose: 3 ml Home Medications Medication Instructions Recorded Confirmed Type albuterol sulfate 90 mcg/actuation 1 puff PO Q4H 11/14/21 03/12/22 History aerosol inhaler fluticasone 250 mcg-salmeterol 50 1 ea inhalation BID 11/14/21 03/12/22 History mcg/dose blistr powdr for inhalation (Advair Diskus) lisinopril 20 1 tab PO DAILY 11/14/21 03/12/22 History mg-hydrochlorothiazide 12.5 mg tablet omeprazole 20 mg capsule,delayed 20 mg PO DAILY 11/14/21 03/12/22 History release lorazepam 0.5 mg tablet 0.5 mg PO BEDTIME 02/08/22 03/12/22 History Probiotic 1 cap PO DAILY 03/12/22 03/12/22 History acetaminophen 325 mg tablet 650 mg PO Q6H PRN Pain 03/12/22 03/12/22 History Allergies Allergy/AdvReac Type Severity Reaction Status Date / Time No Known Allergies Allergy Verified 03/12/22 11:55 Physical Exam Vital signs: Vital Signs Temp 98.3 F 03/12/22 23:21 Pulse 77 03/13/22 13:36 Resp 29 H 03/13/22 13:36 BP 141/93 H 03/13/22 13:36 Pulse Ox 94 03/13/22 13:36 O2 Del Method 03/13/22 13:36 O2 Flow Rate 1 03/13/22 13:36 Intake & Output 03/12/22 03/13/22 03/13/22 18:59 06:59 18:59 Intake Total 500 / 500 Balance 500 / 500 Intake: Intake, IV Amount 500 / 500 0.9 % Sodium Chloride 500 ml @ 500 / 500 80 mls/hr IV .Q6H15M [facility] Rx#: [id number] Other: Weight 52.163 kg Weight 52.163 kg - Constitutional Present: moderate distress - Routine HEENT Exam Head: Present: normal inspection Eye: Present: normal appearance ENT: Present: mucous membranes moist - Routine Neck Exam Present: supple - Routine Respiratory Exam Present: decreased breath sounds, CTAB - Routine Cardiovascular Exam Cardiovascular: Present: RRR, S1, S2 - Routine Abdominal Exam Present: soft, nontender - Routine Extremities Exam Present: nontender Hem/Onc Consult Result - Labs CBC & Chem 7: 03/12/22 15:51 03/15/22 06:01 Labs: BMP 03/13/22 03/13/22 06:57 16:18 Sodium 131 L Potassium 3.2 L 4.0 D Chloride 94 L Carbon Dioxide 28 BUN 12 Creatinine 0.56 Calcium 9.0 Assessment and Plan Patient Active problem list reviewed?: Yes (1) 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 She underwent a bronchoscopy under the care of Dr. Mehta, which revealed: Flexible bronchoscopy performed through laryngeal mask airway with airway placed for the procedure. Flexible bronchoscope advanced through the tracheobronchial tree with visualization of normal patent airways and bronchial mucosa on the left side. On the right-side right main bronchus and right upper lobe bronchus were noted to be in normal and patent With normal mucosa. Opening of the right bronchus intermedius was obstructed by edematous inflamed and easily friable with minimal contact mucosa. No biopsies were obtained secondary to significant oozing of the mucosa with a minimal contact. Brushing and lavage of the right bronchus intermedius a sent for cytology. Airway was observed with resolution of blood oozing. Patient was returned to PACU in stable condition. CT chest from 02/01: 1. No evidence of pulmonary emboli. 2. Right infrahilar mass causing complete collapse of the right middle and right lower lobes with narrowing of the right mainstem bronchus and encasement of the right superior pulmonary vein. Appearances are unchanged when compared to prior. 3. Unchanged small right pleural effusion. VTE: negative. PET SCAN: 1. Previously documented, clinically known large lobulated soft tissue mass centering around the intermediate bronchus associated with collapse consolidation of the right middle and right lower lobe of the lung currently measures approximately 7.2 x 6.0 cm, shows intense FDG avidity with SUV max of 7.4, highly suspicious for malignancy. Note is made of extension of the mass into the adjacent part of the mediastinum. Note is also made of absence of separate FDG avid ipsilateral or contralateral mediastinal or hilar lymphadenopathy. 2. Note is made of FDG avid ipsilateral kaahn-[id number] size right-sided pleural effusion with SUV max of 3.1, suspicious for metastatic pleural involvement. 3. FDG avid approximately 1.1 cm right inferior axillary soft tissue nodule. A similar appearing additional subcutaneous soft tissue nodules are also noted within the left mid lateral abdominal wall and left superior gluteal region. In addition, 1.8 cm soft tissue nodule with intense FDG avidity is seen within the left mid lateral abdominal wall inseparable from the transversus abdominis musculature abutting the tip of the left iliac bone. All of these soft tissue lesions likely represent additional metastatic disease involving lymph nodes versus subcutaneous soft tissue metastatic nodules. These lesions can be biopsied using imaging guidance, for definitive tissue diagnosis, if clinically appropriate. 4. No FDG avid disease within the liver or adrenal glands. Incidental note is made of right adrenal non-FDG avid lipid rich adrenal adenoma. 5. Focal FDG avidity within the sigmoid colon with SUV max of 5.3, may represent inflammatory changes. Direct visualization/colonoscopy however may also be considered for further clarification, if not recently performed. 6. Asymmetric subtle focal increased FDG avidity in the region of the right- sided L2-3 facet joint, may represent arthritic changes with SUV max of 4.0. Fo llow-up imaging is recommended for further clarification. CEA: 2.80. l proceeded with MRI of the brain for staging purposes. This was negative for Mets. I am waiting for the final results on pathology including the molecular testing. PDL1: 2%. Unfortunately the rest of block did not have enough tissue, to proceed with other molecular markers including EGFR, ALK, etc. Fortunately a 2nd block was available. That has been sent for the above testing. Apparently the results of the molecular testing should be back by tomorrow. Hopefully she will have an actionable mutation. Patient is rather frail, so chemo may not be ideal for her. In the meantime I gave her information about chemo and targeted agent. Carboplatin/Alimta/pembrolizumab. Her O2 sat is low on minimal exertion. l requested respiratory to assess. It came back low. In view of that and the shortness of breath, l referred her to the emergency room for further evaluation. I was concerned that her pleural effusion has increased. I discussed the case with the ED doc who graciously accepted her, to his care. Chest x-ray from the ED: Moderate right pleural effusion represents interval increase in the previous study. Increased pulmonary vascular congestion as well. PLAN: She will need thoracentesis/PleurX catheter placement. Will recheck CT scan of the chest to assess the amount of fluid reaccumulation and then decide. She will continue on oxygen supplementation here. Will also arrange it for home. Thank you, CC: Dr. Banks. Addendum: CT chest revealed: IMPRESSION: Limited exam due to artifact from motion. Stable large central right lung mass extending into the right hilum and mediastinum versus adjacent adenopathy. Likely postobstructive atelectasis/consolidation of the right middle and right lower lobes that is stable. Increasing now large right pleural effusion and shift of the central mediastinal structures to the left. Increasing subcutaneous nodules in the right axilla and left upper quadrant. Patient to undergo PleurX catheter placement. - Time Spent With Patient Time Spent with Patient (in minutes): 30
[2022-03-13 17:43] VITALS: BP 135/90; PULSE 79; RESP 14; O2SAT 95
[2022-03-13 20:00] VITALS: BP 148/82; PULSE 79; RESP 17; TEMP 36.6; O2SAT 95; BMI 21.5
[2022-03-13] MEDS: LORazepam 0.5 MG TABLET PO (20:12)
[2022-03-14] VITALS (9 sets, daily range): BP systolic 122–159; BP diastolic 77–92; PULSE 80–90; RESP 17–26; TEMP 36.1–37.1; O2SAT 91–96; BMI 21.5
[2022-03-14] MEDS: oxyCODONE HCl Immed Release 5 MG TABLET PO ×5 (03:55→20:54)
[2022-03-14] MEDS: Albuterol Sulfate (0.083%) 2.5 MG/3 ML VIAL.NEB INHALE ×2 (04:10→19:51)
[2022-03-14] MEDS: Omeprazole 20 MG CAPSULE.DR PO (06:17)
[2022-03-14 06:53] LABS: Anion Gap 10 (12-20); Blood Urea Nitrogen 14 mg/dL (9-16); Carbon Dioxide 28 mmol/L (22-29); Chloride 94 mmol/L (96-108); Creatinine Clr Calc Pharmacy 68.6; Estimated Glomerular Filt Rate > 60; Glucose Random 142 mg/dL (60-115); Potassium 4.1 mmol/L (3.3-5.1); Sodium 128 mmol/L (135-145)
[2022-03-14] MEDS: 0.9 % Sodium Chloride Flush 3 ML SYRINGE IVFLUSH (07:46)
[2022-03-14] MEDS: Metoprolol Succinate ER 25 MG TAB.ER.24H PO (08:31)
[2022-03-14] MEDS: lisinopriL 20 MG TABLET PO (08:31)
[2022-03-14] MEDS: 0.9 % Sodium Chloride 1,000 ML 50 ML IVCONT (08:32)
[2022-03-14] MEDS: iohexoL 350 MG/ML 100 ML INFUS..BTL IV (08:46)
--- NOTE | 2022-03-14 12:01 | HO.PM.IMPN ---
Subjective Subjective Date of Service: 03/14/22 Interval History: Seen in follow-up for hypoxia secondary to malignant pleural effusion with recently diagnosed non-small cell lung cancer with metastasis to the abdomen Interval history: Patient is resting comfortably on 2 L supplemental O2. Denies any shortness of breath, lightheadedness, palpitations, chest pain. She does have minimal cough with sputum production with some wheezing improves with updraft. She has been able to eat a small amount, but still with poor PO intake. Review of Systems General: No fevers, malaise, unintentional weight loss Cardiovascular: No chest pain, palpitations, or leg edema Respiratory: +wheezing, +cough. No shortness of breath GI: +nausea. No nausea, vomiting, diarrhea, constipation, melena, hematochezia : No dysuria, hematuria, increased urinary frequency, decreased urinary output MSK: No myalgia, back pain Neuro: No headaches, weakness, paresthesias Skin: No rashes or lesions Physical Exam Vital Signs: Vital Signs: Last Vital Signs Temp 98.8 F 03/14/22 11:41 Pulse 80 03/14/22 11:41 Resp 19 03/14/22 11:41 BP 158/92 H 03/14/22 11:41 Pulse Ox 96 03/14/22 11:41 O2 Del Method 03/14/22 11:41 O2 Flow Rate 2 03/14/22 11:41 Oxygen Flow Rate 2 03/12/22 14:15 BMI result Body Mass Index 21.5 Constitutional - Awake and Alert, No apparent distress Eyes - PERRLA, EOMI Cardiovascular - S1S2, RRR, No edema Respiratory - Normal lung expansion, Normal respiratory effort, No respiratory distress on 2L supplemental O2. Scattered wheezes b/l, absent lung sound RML/RLL Gastrointestinal - NT / ND; +BS; No rebound or guarding Extremities - no calf tenderness bilaterally, no swelling Skin - Warm/Dry Neurological - Alert & oriented x3 Psychological - Appropriate affect Objective Data Active Medications Acetaminophen (Acetaminophen 325 Mg Tablet) 650 mg PO Q6H PRN PRN Reason: Pain, Mild (Pain Scale 1-3) Last Admin: 03/13/22 11:21 Dose: 650 mg Documented By: SANGITA Albuterol Sulfate (Albuterol Sulfate (0.083%) 2.5 Mg/3 Ml Vial.Neb) 2.5 mg INHALE Q4H PRN PRN Reason: Shortness of Breath/Wheezing Last Admin: 03/14/22 04:10 Dose: 2.5 mg Documented By: SAM Comments: computers down, unable to scan Docusate Sodium (Docusate Sodium 100 Mg Capsule) 100 mg PO DAILY PRN PRN Reason: Constipation Last Admin: 03/13/22 03:52 Dose: 100 mg Documented By: WANDER Fluticasone/Vilanterol (Fluticasone/Vilanterol 100/25 Blst.W.Dev) 1 puff INHALE RDAILY [facility] Last Admin: 03/14/22 11:37 Dose: Not Given Documented By: SANJUANITA Non-Admin Reason: Med Not Available Sodium Chloride (Ns) 1,000 mls @ 50 mls/hr IVCONT .Q20H [facility] Last Admin: 03/14/22 08:32 Dose: 50 mls/hr Documented By: ABIODUN Lisinopril (Lisinopril 20 Mg Tablet) 20 mg PO DAILY [facility] Last Admin: 03/14/22 08:31 Dose: 20 mg Documented By: ABIODUN Lorazepam (Lorazepam 0.5 Mg Tablet) 0.5 mg PO BEDTIME [facility] Last Admin: 03/13/22 20:12 Dose: 0.5 mg Documented By: MARY Metoprolol Succinate (Metoprolol Succinate Er 25 Mg Tab.Er.24h) 25 mg PO DAILY [facility]; Protocol Last Admin: 03/14/22 08:31 Dose: 25 mg Documented By: ABIODUN Omeprazole (Omeprazole 20 Mg Capsule.) 20 mg PO DAILY@0630 [facility] Last Admin: 03/14/22 06:17 Dose: 20 mg Documented By: MARY Ondansetron HCl (Ondansetron Hcl 4 Mg/2 Ml Vial) 4 mg IVPUSH Q8H PRN PRN Reason: Nausea and Vomiting Last Admin: 03/13/22 06:33 Dose: 4 mg Documented By: WANDER Oxycodone HCl (Oxycodone Hcl Immed Release 5 Mg Tablet) 5 mg PO Q8H PRN PRN Reason: Breakthrough Pain, back/abd Last Admin: 03/13/22 17:39 Dose: 5 mg Documented By: AMANDEEP Oxycodone HCl (Oxycodone Hcl Immed Release 5 Mg Tablet) 5 mg PO Q4H PRN PRN Reason: Pain, Moderate (Pain Scale 4-6 Last Admin: 03/14/22 08:31 Dose: 5 mg Documented By: ABIODUN Pharmacy Consult (Consult Rx Perform Med Rec) 1 each MISCELLANE ONCE PRN PRN Reason: Consult order Sodium Chloride (0.9 % Sodium Chloride Flush 3 Ml Syringe) 3 ml IVFLUSH QSHIFT [facility] Last Admin: 03/14/22 07:46 Dose: 3 ml Documented By: ABIODUN Labs CBC & Chem 7: 03/12/22 15:51 03/14/22 05:01 Labs: Laboratory Results - last 24 hr 03/14/22 05:01 Anion Gap 10 L Estim Creat Clear Calc 68.6 Estimated GFR > 60 Random Glucose 142 H Calcium 9.0 Assessment and Plan (1) Acute respiratory failure with hypoxia: Status: Acute (2) Pleural effusion: Status: Acute (3) 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 # acute hypoxic respiratory failure- secondary to probable malignant pleural effusion related to non-small cell lung cancer -continue supplemental O2 to maintain oximetry greater than 94% -See below for further management # malignant right-sided pleural effusion- related to newly diagnosed non-small cell lung cancer -CXR with moderate right-sided pleural effusion increased vascular congestion.? BNP unremarkable -will need IR drainage after Eliquis is held for 48 hours.? Last dose of Eliquis taken at 09:00, 03/12. Consider IR drainage tomorrow as patient was not NPO for today and requires sedation. NPO after midnight -continue supplemental O2 as above # newly diagnosed non-small lung cancer with metastasis to the abdomen -Appreciate oncology input, follows with Dr. Veras outpatient -not yet on any chemotherapy or radiation -ondansetron p.r.n. for nausea -Tylenol and home oxycodone p.r.n. for breakthrough pain of the abdomen and low back related to her cancer -Regular diet tomorrow with ensures given intentional weight loss 20+ lb over the last 6 months. Nutrition consult placed -PT ordered for weakness with malnutrition and cachexia # hyponatremia- chronic r/t SIADH secondary to lung cancer -Poor PO intake. Continue gentle hydrattion -Ur osmolality 274, Ur K 15.7, Ur Na 39, Ur Cr 50.31. Renal function normal (creat 0.56, BUN 12) -Monitor BMP #Generalized weakness/cachexia with malnutrition secondary to NSCLC -PT consult placed -Nutrition consult placed #Hypokalemia- resolved -Mild with K 3.2 repleted with 40meq KCL PO -Continue holding HCTZ -Follow BMP # paroxysmal atrial fibrillation-rate controlled -hold Eliquis for 48 hours prior to IR drainage as above -continue rate control # interstitial lung disease -continue Advair -albuterol as needed # GERD -continue PPI # anxiety -continue lorazepam -hypertension-blood pressure reasonably controlled -continue lisinopril and metoprolol DVT prophylaxis- mechanical, give lovenox tomorrow, then hold Full code Patient requires ongoing inpatient stay due to acute hypoxic respiratory failure secondary to malignant pleural effusion requiring supplemental oxygen with IR drainage of pleural effusion. Quality Stroke Does the patient have a stroke diagnosis?: No VTE Prior VTE?: No VTE Risk Level:: Medical - moderate - high VTE Device Contraindication: N/A - Device Ordered VTE Drug Contraindication: Treatment Not Indicated
[2022-03-14] MEDS: Simethicone 80 MG TAB.CHEW PO ×2 (13:22→18:27)
--- NOTE | 2022-03-14 14:18 | MHC.CM.PN ---
PER CJ, DC PLAN IS HOME BY Saturday03/16/22
[2022-03-14] MEDS: HYDROmorphone HCl 0.5 MG/0.5 ML SYRINGE 0.25 MG IVPUSH ×2 (14:20→18:20)
--- NOTE | 2022-03-14 14:33 | MHC.CLN ---
NUTRITION CONSULT FOR NEW DX NON SMALL CELL LUNG CANCER, 20# UNINTENTIONAL WEIGHT LOSS X 6 MONTHS, ANOREXIA. METS TO ABDOMEN NOTED. VISITED PATIENT WITH DAUGHTER PRESENT. DOES BEST WITH SMALLER MEALS/SNACKS. DAUGHTER ORDERING MENU ITEMS THAT CAN BE SAVED FOR SNACK (EX. BLUEBERRY MUFFIN). LIKES ENSURE SUPPLEMENT AND TAKES AT HOME. WOULD LIKE BID HERE. SUPPLEMENT PROVIDES ADDITIONAL 700 KCALS, 40 G PROTEIN. SEE NUTRITION ASSESSMENT 03/14/22.
[2022-03-14] MEDS: LORazepam 0.5 MG TABLET PO (21:58)
[2022-03-15] VITALS (11 sets, daily range): BP systolic 104–151; BP diastolic 64–85; PULSE 79–90; RESP 15–26; TEMP 36.2–36.6; O2SAT 94–98
[2022-03-15] MEDS: ondansetron HCL 4 MG/2 ML VIAL IVPUSH ×2 (03:05→20:23)
[2022-03-15] MEDS: HYDROmorphone HCl 0.5 MG/0.5 ML SYRINGE 0.25 MG IVPUSH ×2 (03:09→08:02)
[2022-03-15] MEDS: 0.9 % Sodium Chloride 1,000 ML 50 ML IVCONT (03:12)
[2022-03-15] MEDS: Albuterol Sulfate (0.083%) 2.5 MG/3 ML VIAL.NEB INHALE ×2 (06:51→15:37)
[2022-03-15] MEDS: Fluticasone/Vilanterol 100/25 BLST.W.DEV 1 PUFF INHALE (06:51)
[2022-03-15 07:43] LABS: Anion Gap 14 (12-20); Blood Urea Nitrogen 16 mg/dL (9-16); Calcium 9.1 mg/dL (8.4-10.2); Carbon Dioxide 27 mmol/L (22-29); Chloride 95 mmol/L (96-108); Creatinine Clr Calc Pharmacy 67.2; Estimated Glomerular Filt Rate > 60; Glucose Random 102 mg/dL (60-115); Potassium 4.6 mmol/L (3.3-5.1); Sodium 131 mmol/L (135-145)
[2022-03-15] MEDS: Metoprolol Succinate ER 25 MG TAB.ER.24H PO (08:13)
[2022-03-15] MEDS: lisinopriL 20 MG TABLET PO (08:13)
[2022-03-15] MEDS: Simethicone 80 MG TAB.CHEW PO ×2 (08:14→15:17)
[2022-03-15] MEDS: Furosemide 20 MG/2 ML VIAL IVPUSH (08:58)
[2022-03-15 10:48] LABS: INTERNATIONAL NORM RATIO 1.1 (0.9-1.1); Prothrombin Time 12.1 SEC (10.0-13.1)
[2022-03-15 10:51] LABS: Partial Thromboplastin Time 29.1 SEC (26.0-36.4)
--- NOTE | 2022-03-15 13:46 | HO.PM.IMPN ---
Subjective Subjective Date of Service: 03/16/22 Interval History: Noted to be short of breath this morning waiting for thoracocentesis, no acute events overnight, family is at bedside patient is NPO. Review of Systems General: No fevers, malaise, unintentional weight loss Cardiovascular: No chest pain, palpitations, or leg edema Respiratory: + shortness of breath GI: +nausea, decreased appetite : No dysuria, hematuria, urinary frequency, decreased urinary output Review of Systems: Yes all other systems are reviewed and are negative Physical Exam Vital Signs: Vital Signs: Last Vital Signs Temp 97.5 F 03/15/22 13:20 Pulse 81 03/15/22 13:20 Resp 20 03/15/22 13:20 BP 130/74 03/15/22 13:20 Pulse Ox 96 03/15/22 07:56 O2 Del Method 03/15/22 07:56 O2 Flow Rate 2.0 03/15/22 07:56 Oxygen Flow Rate 2 03/12/22 14:15 BMI result Body Mass Index 21.5 Const: Other: Constitutional - Awake and Alert, in mild respiratory distress, tachypneic Neck no JVD Cardiovascular - S1S2, RRR, No edema Respiratory - diminished breath sounds right base, expiratory rhonchi Gastrointestinal -abdomen soft nontender bowel sounds audible Extremities - no calf tenderness bilaterally, no swelling Skin - Warm/Dry Neurological - Alert & oriented x3 Psychological - anxious appearing Objective Data Active Medications Acetaminophen (Acetaminophen 325 Mg Tablet) 650 mg PO Q6H PRN PRN Reason: Pain, Mild (Pain Scale 1-3) Last Admin: 03/13/22 11:21 Dose: 650 mg Documented By: SANGITA Albuterol Sulfate (Albuterol Sulfate (0.083%) 2.5 Mg/3 Ml Vial.Neb) 2.5 mg INHALE Q4H PRN PRN Reason: Shortness of Breath/Wheezing Last Admin: 03/15/22 06:51 Dose: 2.5 mg Documented By: SANJUANITA Docusate Sodium (Docusate Sodium 100 Mg Capsule) 100 mg PO DAILY PRN PRN Reason: Constipation Last Admin: 03/13/22 03:52 Dose: 100 mg Documented By: WANDER Fluticasone/Vilanterol (Fluticasone/Vilanterol 100/25 Blst.W.Dev) 1 puff INHALE RDAILY [facility] Last Admin: 03/15/22 06:51 Dose: 1 puff Documented By: BRESANATOLY Hydromorphone HCl (Hydromorphone Hcl 0.5 Mg/0.5 Ml Syringe) 0.25 mg IVPUSH Q4H PRN; Protocol PRN Reason: Pain, Severe (Pain Scale 7-10) Last Admin: 03/15/22 08:02 Dose: 0.25 mg Documented By: ABIODUN Lisinopril (Lisinopril 20 Mg Tablet) 20 mg PO DAILY [facility] Last Admin: 03/15/22 08:13 Dose: 20 mg Documented By: ABIODUN Lorazepam (Lorazepam 0.5 Mg Tablet) 0.5 mg PO BEDTIME [facility] Last Admin: 03/14/22 21:58 Dose: 0.5 mg Documented By: MARY Metoprolol Succinate (Metoprolol Succinate Er 25 Mg Tab.Er.24h) 25 mg PO DAILY [facility]; Protocol Last Admin: 03/15/22 08:13 Dose: 25 mg Documented By: ABIODUN Omeprazole (Omeprazole 20 Mg Capsule.Dr) 20 mg PO DAILY@0630 [facility] Last Admin: 03/15/22 05:31 Dose: Not Given Documented By: MARY Non-Admin Reason: NPO Ondansetron HCl (Ondansetron Hcl 4 Mg/2 Ml Vial) 4 mg IVPUSH Q8H PRN PRN Reason: Nausea and Vomiting Last Admin: 03/15/22 03:05 Dose: 4 mg Documented By: MARY Oxycodone HCl (Oxycodone Hcl Immed Release 5 Mg Tablet) 5 mg PO Q4H PRN PRN Reason: Pain, Moderate (Pain Scale 4-6 Last Admin: 03/14/22 20:54 Dose: 5 mg Documented By: MARY Pharmacy Consult (Consult Rx Perform Med Rec) 1 each MISCELLANE ONCE PRN PRN Reason: Consult order Simethicone (Simethicone 80 Mg Tab.Chew) 80 mg PO QIDWMHS PRN PRN Reason: Gas Last Admin: 03/15/22 08:14 Dose: 80 mg Documented By: ABIODUN Sodium Chloride (0.9 % Sodium Chloride Flush 3 Ml Syringe) 3 ml IVFLUSH QSHIFT VLADIMIR Last Admin: 03/15/22 08:07 Dose: Not Given Documented By: ABIODUN Non-Admin Reason: IV Running Labs CBC & Chem 7: 03/12/22 15:51 03/15/22 06:01 Labs: Laboratory Results - last 24 hr 03/15/22 03/15/22 06:01 10:29 PT 12.1 INR 1.1 APTT 29.1 Anion Gap 14 Estim Creat Clear Calc 67.2 Estimated GFR > 60 Random Glucose 102 Calcium 9.1 Assessment and Plan (1) Acute respiratory failure with hypoxia: Status: Acute (2) Pleural effusion: Status: Acute (3) 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 # acute hypoxic respiratory failure- secondary to right lung mass extending into the right hilum and mediastinum with postoperative atelectasis /consolidation/malignant pleural effusion and shift of central mediastinal structures to the left - patient appeared in mild distress, continue supplemental O2 to maintain oximetry greater than 94% -will DC IV fluid, give IV Lasix -schedule for right thoracocentesis by IR today # newly diagnosed non-small lung cancer with metastasis to the abdomen -not yet on any chemotherapy or radiation -ondansetron p.r.n. for nausea -Tylenol and home oxycodone p.r.n. for breakthrough pain of the abdomen and low back related to her cancer -Regular diet with ensures given unintentional weight loss 20+ lb over the last 6 months. Nutrition consult placed -PT not attempted due to significant shortness of breath and fatigue today # hyponatremia- chronic r/t SIADH secondary to lung cancer - SNA 131,Poor PO intake. Continue gentle hydrattion #Generalized weakness/cachexia with malnutrition secondary to NSCLC -to be evaluated by Physical therapy and driver medic #Hypokalemia- resolved -Continue holding HCTZ -Follow BMP # paroxysmal atrial fibrillation-rate controlled -will resume Eliquis after thoracocentesis -continue rate control # interstitial lung disease -continue Advair -albuterol as needed # GERD -continue PPI # anxiety -continue lorazepam -hypertension-blood pressure reasonably controlled -continue lisinopril and metoprolol DVT prophylaxis- mechanical Full code Patient requires ongoing inpatient stay due to acute hypoxic respiratory failure secondary to malignant pleural effusion requiring supplemental oxygen for IR drainage of pleural effusion is scheduled for today. Quality Stroke Does the patient have a stroke diagnosis?: No VTE Prior VTE?: No VTE Risk Level:: Medical - moderate - high VTE Device Contraindication: N/A - Device Ordered VTE Drug Contraindication: Treatment Not Indicated
[2022-03-15] MEDS: oxyCODONE HCl Immed Release 5 MG TABLET PO ×2 (15:17→19:10)
[2022-03-15] MEDS: 0.9 % Sodium Chloride Flush 3 ML SYRINGE IVFLUSH ×2 (16:00→20:23)
[2022-03-15] MEDS: LORazepam 0.5 MG TABLET PO (20:23)
[2022-03-16] VITALS (8 sets, daily range): BP systolic 102–133; BP diastolic 59–77; PULSE 76–109; RESP 16–20; TEMP 36.2–36.6; O2SAT 82–98
[2022-03-16] MEDS: oxyCODONE HCl Immed Release 5 MG TABLET PO ×4 (01:09→14:35)
[2022-03-16] MEDS: Omeprazole 20 MG CAPSULE.DR PO (05:42)
[2022-03-16] MEDS: Acetaminophen 325 MG TABLET 650 MG PO (05:44)
[2022-03-16] MEDS: Albuterol Sulfate (0.083%) 2.5 MG/3 ML VIAL.NEB INHALE (05:59)
[2022-03-16] MEDS: Fluticasone/Vilanterol 100/25 BLST.W.DEV 1 PUFF INHALE (05:59)
[2022-03-16] MEDS: Metoprolol Succinate ER 25 MG TAB.ER.24H PO (09:36)
[2022-03-16] MEDS: lisinopriL 20 MG TABLET PO (09:36)
[2022-03-16] MEDS: 0.9 % Sodium Chloride Flush 3 ML SYRINGE IVFLUSH (09:37)
[2022-03-16] MEDS: Docusate Sodium 100 MG CAPSULE PO (09:37)
[2022-03-16] MEDS: Cyanocobalamin (Vitamin B-12) 1,000 MCG/ML VIAL 1000 MCG IM (12:53)
--- NOTE | 2022-03-16 13:47 | MHC.CM.PN ---
[facility] HAS REQUESTED A WEEKS WORTH OF PLEUREX SUPPLIES REQUEST FORWARDED TO PTS NURSE FAMILY TO TRANSPORT
--- NOTE | 2022-03-16 14:13 | PM.DS ---
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 Veras, for evaluation of shortness of breath ongoing for about 1 week but worsening today.? Her daughter who was a nurse found her to be hypoxic today at 85% on room air, she is not oxygen dependent.? She states that the shortness of breath is worse with exertion and also endorses orthopnea, PND.? She does endorse back and abdominal pain related to her cancer.? She is also endorsing nausea for which she uses ondansetron at home.? She has lost a total of 25 lb in the last 6 months and has had decreased oral intake.? The lung cancer is newly diagnosed and is not yet on any chemotherapy or radiation.? She denies any fevers, chills, lightheadedness, headaches, chest pain, palpitations, vomiting.? In the ED, chest x-ray showed moderate right pleural effusion increased in size since previous study with increased pulmonary vascular congestion as well.? On arrival, patient was afebrile, HR 84, respiratory rate 14, blood pressure 161/98 with oximetry of 91% on room air placed on 2 L via nasal cannula with improvement to 98%.? There is a mild leukocytosis of 11.2, consistent with baseline.? Creatinine 0.61, BUN 12, CO2 30, potassium 3.4, sodium 131, chloride 92.? Initial troponin 17.8, repeat pending, BNP 46.? COVID-19, influenza negative.? Patient to be admitted for malignant pleural effusion secondary to non small cell lung cancer with acute hypoxic respiratory failure. hospital course 68-year-old female with history of interstitial lung disease, atrial fibrillation anticoagulated with Eliquis, non-small cell lung cancer with metastasis to the abdomen, GERD, history of melanoma, hypertension, and osteoporosis admitted for acute hypoxic respiratory failure secondary to pleural effusion and non-small cell lung cancer. # patient admitted with acute hypoxic respiratory failure- secondary to right lung mass extending into the right hilum and mediastinum with postobstructive atelectasis /consolidation/malignant pleural effusion and shift of central mediastinal structures to the left, patient was treated with supplemental oxygen Eliquis was held and underwent right PleurX catheter placement, 1 L of clear fluid was removed postprocedure patient is feeling significantly better, home O2 eval was obtain and patient qualifies for 2 L of oxygen at rest and 4 L with activity she is being discharged home with VNA services for removal of pleural fluid 3 times per week she is recommended outpatient follow-up with Dr. Veras next week # newly diagnosed non-small lung cancer with metastasis to the abdomen with generalized weakness recommend to continue oxycodone and Tylenol for pain, patient evaluated by Physical therapy and is being discharged home with home therapy # hyponatremia- chronic r/t SIADH secondary to lung cancer hydrochlorothiazide discontinued sodium improved to 131 #Hypokalemia- resolved, HCTZ discontinued # paroxysmal atrial fibrillation-rate controlled continue Eliquis # interstitial lung disease no acute exacerbation continue home inhalers, patient to not qualify for nebulizer treatment with no diagnosis of asthma or COPD # GERD-continue PPI # anxiety -continue lorazepam -hypertension-blood pressure reasonably controlled continue lisinopril and metoprolol. no Time Spent with Patient Time attestation: Total time spent providing and/or coordinating discharge services: Discharge coordination time: Greater than 30 minutes Quality: Safe Use of Opioids Does Pt have an Active Cancer Diagnosis on the Problem List?: No Quality: Stroke Does the patient have a stroke diagnosis?: No Physical Exam Vital Signs: Vital Signs: Last Vital Signs Temp 97.2 F 03/16/22 12:00 Pulse 84 03/16/22 12:00 Resp 19 03/16/22 12:00 BP 131/77 03/16/22 12:00 Pulse Ox 95 03/16/22 12:00 O2 Del Method 03/16/22 12:00 O2 Flow Rate 2 03/16/22 08:00 Oxygen Flow Rate 2 03/12/22 14:15 BMI result Body Mass Index 21.5 Const: Other: Constitutional - Awake and Alert, in no respiratory distress Neck no JVD Cardiovascular - S1S2, RRR, No edema Respiratory - diminished breath sounds but improved no wheeze, no rhonchi Gastrointestinal -abdomen soft nontender bowel sounds audible Extremities - no calf tenderness bilaterally, no swelling Skin - Warm/Dry Neurological - Alert & oriented x3 Psychological - anxious appearing Discharge Plan Discharge Anticipated Discharge Date/Time: 03/16/22 12:11 Patient Disposition: Home Health Service Discharge Diagnosis: acute hypoxic respiratory failure secondary to right lung mass/ right pleural effusion newly diagnosed non-small cell lung cancer hyponatremia generalized weakness 3 Referrals: Yuliana GUSMAN [Outside] - 1 Week Dereje Banks MD [Primary Care Provider] - 1 Week Discharge Medications: New folic acid 1 mg Tablet 1 mg PO DAILY Qty: 30 4RF lisinopril 20 mg tablet 20 mg PO DAILY Qty: 30 0RF Continued Eliquis 2.5 mg tablet 2.5 mg PO BID Qty: 60 5RF metoprolol succinate [Toprol XL] 25 mg tablet extended release 24 hr 25 mg PO DAILY Qty: 30 5RF oxycodone 5 mg Tablet 5 mg PO Q8H PRN (Reason: Breakthrough Pain, Mild) Qty: 30 0RF Rx Instructions: Partial Fill upon patient request. acetaminophen 325 mg Tablet 650 mg PO Q6H PRN (Reason: Pain) Probiotic 1 cap PO DAILY omeprazole 20 mg capsule,delayed release(DR/EC) 20 mg PO DAILY fluticasone propion-salmeterol [Advair Diskus] 250-50 mcg/dose blister with device 1 ea inhalation BID albuterol sulfate 90 mcg/actuation HFA aerosol inhaler 1 puff PO Q4H lorazepam 0.5 mg tablet 0.5 mg PO BEDTIME Discontinued lisinopril-hydrochlorothiazide 20-12.5 mg tablet 1 tab PO DAILY Discharge Orders: Discharge Order (Routine); Ordered 03/16/22 Ordered By: Ana Hu Diet: Advance to usual diet Activity on Discharge: As tolerated Stand Alone Forms: Patient Portal Discharge page Care Plan Goals: right pleural effusion status post right PleurX catheter placement VNBrian to follow outpatient 3 times per week for pleurax catheter drainage physical therapy eval at home for weakness outpatient follow-up with Dr. Veras on March 22 being discharged home on oxygen 2 L at rest and 4 L with activity is a lisinopril 20 attached Health Concerns: continue all home medication as before except stop hydrochlorothiazide Plan of Treatment: outpatient follow-up with Dr. Veras Assessment: as above
== END 2022-03-16 17:50 | disposition home health service (06) | DRG 180 ==
LOC: HO.ED 16:48 → HO.EDOVER 18:40 → HO.S3 03-13 18:32
PROVIDERS: Nurse Practitioner Family; Radiology Diagnostic Radiology; Admitting Provider Physician Assistant; Emergency Provider Emergency Medicine; PCP Internal Medicine; Visit Provider Hospitalist
PROC: 0W9930Z Drainage of Right Pleural Cavity with Drainage Device, Percutaneous Approach (ICD-10-PCS; principal; 2022-03-15 10:30)
DX: C34.01 Malignant neoplasm of right main bronchus (principal); J81.0 Acute pulmonary edema; J96.01 Acute respiratory failure with hypoxia; J84.9 Interstitial pulmonary disease, unspecified; C79.51 Secondary malignant neoplasm of bone; C78.6 Secondary malignant neoplasm of retroperitoneum and peritoneum; E22.2 Syndrome of inappropriate secretion of antidiuretic hormone; E46 Unspecified protein-calorie malnutrition; I10 Essential (primary) hypertension; F41.9 Anxiety disorder, unspecified; K21.9 Gastro-esophageal reflux disease without esophagitis; G89.3 Neoplasm related pain (acute) (chronic); M18.0 Bilateral primary osteoarthritis of first carpometacarpal joints; Z68.21 Body mass index [BMI] 21.0-21.9, adult; E87.6 Hypokalemia; I48.0 Paroxysmal atrial fibrillation; Z87.891 Personal history of nicotine dependence; Z20.822 Contact with and (suspected) exposure to COVID-19; Z79.01 Long term (current) use of anticoagulants; Z79.51 Long term (current) use of inhaled steroids; Z79.899 Other long term (current) drug therapy
CPT/HCPCS: 32550; 36415; 71046; 71260; 80048; 80053; 83735; 83880; 83935; 84132; 84133; 84300; 84484; 85025; 85610; 85730; 87502; 87635; 93005; 94640; 97116; 97162; 99285; C1729; J1170; J1650; J1940; J2405; Q9967

== ENCOUNTER 2022-04-12 09:30 | Outpatient (RCR) | payer MEDICARE, SELFPAY ==
[2022-02-22 13:05] VITALS: BP 125/75; PULSE 96; RESP 14; TEMP 36.6; O2SAT 94; BMI 21.4
--- NOTE | 2022-02-22 13:25 | PM.HEMONCCN ---
Subjective - Subjective Chief complaint: Consult for: Non-small cell lung carcinoma. Patient: new to practice Consult date: 02/22/22 Requesting Physician: Jocelyn. Primary Care Provider: Dereje Banks MD Medical Summary: DIAGNOSIS: NON-SMALL LUNG CARCINOMA. STAGE IV DISEASE. HPI - Consult Narrative Reason for consult: Consult for: Non-small cell lung carcinoma. Narrative: Caterina Ojeda is a 76 year old lady, referred by Dr. Banks on account of recent diagnosis of non-small cell lung carcinoma. She tells me she had onset of symptoms beginning of the year. She was in [place] then. She felt, as if she was coming down with Hay fever. She had a sore throat. In September she noted trouble breathing. She felt phlegm in the throat that was hard to cough up. She noted wheezing. She was prescribed an inhaler. A chest x-ray were done on 09/14, which revealed: -Coarsening interstitial markings of unknown chronicity. -No engorgement central vasculature to suggest superimposed interstitial edema. No overt effusion. She was then referred to Dr. Mehta. She underwent a bronchoscopy under the care of Dr. Mehta, which revealed: Flexible bronchoscopy performed through laryngeal mask airway with airway placed for the procedure. Flexible bronchoscope advanced through the tracheobronchial tree with visualization of normal patent airways and bronchial mucosa on the left side. On the right-side right main bronchus and right upper lobe bronchus were noted to be in normal and patent With normal mucosa. Opening of the right bronchus intermedius was obstructed by edematous inflamed and easily friable with minimal contact mucosa. No biopsies were obtained secondary to significant oozing of the mucosa with a minimal contact. Brushing and lavage of the right bronchus intermedius a sent for cytology. Airway was observed with resolution of blood oozing. Patient was returned to PACU in stable condition. CT chest from 02/01: 1. No evidence of pulmonary emboli. 2. Right infrahilar mass causing complete collapse of the right middle and right lower lobes with narrowing of the right mainstem bronchus and encasement of the right superior pulmonary vein. Appearances are unchanged when compared to prior. 3. Unchanged small right pleural effusion. VTE: negative. PET SCAN: 1. Previously documented, clinically known large lobulated soft tissue mass centering around the intermediate bronchus associated with collapse consolidation of the right middle and right lower lobe of the lung currently measures approximately 7.2 x 6.0 cm, shows intense FDG avidity with SUV max of 7.4, highly suspicious for malignancy. Note is made of extension of the mass into the adjacent part of the mediastinum. Note is also made of absence of separate FDG avid ipsilateral or contralateral mediastinal or hilar lymphadenopathy. 2. Note is made of FDG avid ipsilateral [id number] size right-sided pleural effusion with SUV max of 3.1, suspicious for metastatic pleural involvement. 3. FDG avid approximately 1.1 cm right inferior axillary soft tissue nodule. A similar appearing additional subcutaneous soft tissue nodules are also noted within the left mid lateral abdominal wall and left superior gluteal region. In addition, 1.8 cm soft tissue nodule with intense FDG avidity is seen within the left mid lateral abdominal wall inseparable from the transversus abdominis musculature abutting the tip of the left iliac bone. All of these soft tissue lesions likely represent additional metastatic disease involving lymph nodes versus subcutaneous soft tissue metastatic nodules. These lesions can be biopsied using imaging guidance, for definitive tissue diagnosis, if clinically appropriate. 4. No FDG avid disease within the liver or adrenal glands. Incidental note is made of right adrenal non-FDG avid lipid rich adrenal adenoma. 5. Focal FDG avidity within the sigmoid colon with SUV max of 5.3, may represent inflammatory changes. Direct visualization/colonoscopy however may also be considered for further clarification, if not recently performed. 6. Asymmetric subtle focal increased FDG avidity in the region of the right-sided L2-3 facet joint, may represent arthritic changes with SUV max of 4.0. Follow-up imaging is recommended for further clarification. PAST MEDICAL HISTORY: Seen in the ED on 02/05: Patient comes to the emergency room complaining of palpitations. Patient states that 4 days ago she was diagnosed with new onset atrial flutter, started on Eliquis 2.5 mg. Patient states that before she left the hospital, she was back in sinus rhythm. Today, patient was checking her blood pressure, and her heart rate was between 110 and 120. Patient occasionally feeling palpitations. No chest pain. 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 Patient's CTA scan for pulmonary embolism was -4 days ago. Since then, patient has been on Eliquis. Patient denies lower extremity pain or edema. FAMILY HISTORY: Brother had prostate cancer. A brother and a sister had bladder cancer. Maternal aunt had breast cancer. 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 She is . Has 3 children. She did smoke off and on. They would drink few times a week, went to happy hour. She was very active. They walked a lot. Played golf. ROS: She feels rather fatigued. Denies fever chills or night sweats. Appetite has declined. She has lost 20% of her body weight since September. She has noted headaches that come on on a daily basis recently . They are localize to the fr and back o of he. she has been taking Tylenol ad 4 times . Today she felt dizzy. She has been short of breath. Denies chest pain. She has had digestive problems. She gets heartburn nausea and dysphagia. Bowels are constipated. No gross blood in the stools. Denies any dysuria or hematuria. Denies any joint pains. She has history of anxiety. Recently she has been depressed. Denies skin rashes no pruritus. Review of Systems - Constitutional Reports system reviewed and no additional complaints, except as documented, Reports anorexia, Reports fatigue, Reports fever(s), Reports lack of energy, Reports malaise, Reports weight loss - Eyes Reports system reviewed and no additional complaints, except as documented - ENT Reports system reviewed and no additional complaints, except as documented, Reports dizziness - Cardiovascular Reports system reviewed and no additional complaints, except as documented, Reports shortness of breath - Respiratory Reports no additional respiratory complaints, Reports chest congestion - Gastrointestinal Reports system reviewed and no additional complaints, except as documented, Reports heartburn, Reports nausea - Genitourinary Reports no additional female genitourinary complaints - Musculoskeletal Reports system reviewed and no additional complaints, except as documented - Integumentary/Breasts Skin/Breast: Reports no additional skin complaints - Neurologic Reports system reviewed and no additional complaints, except as documented - Psychiatric Reports system reviewed and no additional complaints, except as documented - Endocrine Reports no additional endocrine complaints - Hematologic/Lymphatic Reports system reviewed and no additional complaints, except as documented - Allergic/Immunologic Reports system reviewed and no additional complaints, except as documented Oncology Screenings - ECOG Performance Status ECOG Performance Status: 1 [facility] Medical History: Medical History (Last Reviewed 02/22/22 @ 13:10 by Scarlet Benitez CMA) Atrial fibrillation Onset Date: ~2021 GERD (gastroesophageal reflux disease) History of melanoma HTN (hypertension) Lung cancer Onset Date: ~2021 Osteoporosis Onset Date: ~2016 Functional capacity: uses cane/walker Patient : No Family History: Family History (Last Updated 02/22/22 @ 13:12 by Scarlet Benitez CMA) Mother Alzheimer disease Father Enlarged heart Brother Bladder cancer Prostate cancer Sister Bladder cancer Maternal Aunt Breast cancer Surgical History: Surgical History (Last Reviewed 02/22/22 @ 13:10 by Scarlet Benitez CMA) History of breast surgery History of bronchoscopy Onset Date: ~2021 History of cholecystectomy Onset Date: ~1999 History of colonoscopy History of hysterectomy Onset Date: ~1996 Social History: Social History (Last Updated 02/22/22 @ 13:13 by Scarlet Benitez CMA) Living Situation History: Household Members: Spouse Housing: House Are you a primary direct care professional to a significant other at home: No Do you presently have visiting nurse or other home services: No Tobacco History: Patient Tobacco Use Status: Former Tobacco user Tobacco use type: Cigarette Years Smoked: 10 +/- Smoke Quit Date: 1986 Occupation Assessmet: service: No Current occupational status: retired Home Medications and Allergies Home Medications Medication Instructions Recorded Confirmed Type albuterol sulfate 90 mcg/actuation 1 puff PO Q4H 11/14/21 02/22/22 History aerosol inhaler fluticasone 250 mcg-salmeterol 50 1 ea inhalation BID 11/14/21 02/22/22 History mcg/dose blistr powdr for inhalation (Advair Diskus) lisinopril 20 1 tab PO DAILY 11/14/21 02/22/22 History mg-hydrochlorothiazide 12.5 mg tablet omeprazole 20 mg capsule,delayed 20 mg PO DAILY 11/14/21 02/22/22 History release [employer] [facility] 1 tab PO DAILY 01/04/22 02/22/22 History Tylenol 2 tab PO DAILY PRN Headache 01/04/22 02/22/22 History Vitamin C 1 tab PO DAILY 01/04/22 02/22/22 History calcium 1 tab PO DAILY 01/04/22 02/22/22 History vitamin E 1 tab PO DAILY 01/04/22 02/22/22 History lorazepam 0.5 mg tablet 0.5 mg PO BEDTIME PRN Anxiety 02/08/22 02/22/22 History ondansetron HCl 4 mg tablet 4 mg PO DAILY 02/08/22 02/22/22 History Allergies Allergy/AdvReac Type Severity Reaction Status Date / Time No Known Allergies Allergy Verified 02/22/22 13:13 Physical Exam Vital signs: Vital Signs Temp 97.9 F 02/22/22 13:05 Pulse 96 02/22/22 13:05 Resp 14 02/22/22 13:05 BP 125/75 02/22/22 13:05 Pulse Ox 94 02/22/22 13:05 O2 Del Method 02/22/22 13:05 Intake & Output 02/21/22 02/22/22 02/22/22 18:59 06:59 18:59 Other: Weight 51.6 kg [place] Weight in Grams [id number] Weight 51.6 kg - Constitutional Present: mild distress - Routine HEENT Exam Head: Present: normal inspection Eye: Present: normal appearance ENT: Present: mucous membranes moist - Routine Neck Exam Present: supple - Routine Respiratory Exam Present: CTAB - Routine Cardiovascular Exam Cardiovascular: Present: RRR, S1, S2 - Routine Abdominal Exam Present: soft, nontender - Routine Extremities Exam Present: nontender Hem/Onc Consult Result - Labs CBC & Chem 7: 02/22/22 14:00 02/22/22 14:00 Assessment and Plan Patient Active problem list reviewed?: Yes (1) 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 She underwent a bronchoscopy under the care of Dr. Mehta, which revealed: Flexible bronchoscopy performed through laryngeal mask airway with airway placed for the procedure. Flexible bronchoscope advanced through the tracheobronchial tree with visualization of normal patent airways and bronchial mucosa on the left side. On the right-side right main bronchus and right upper lobe bronchus were noted to be in normal and patent With normal mucosa. Opening of the right bronchus intermedius was obstructed by edematous inflamed and easily friable with minimal contact mucosa. No biopsies were obtained secondary to significant oozing of the mucosa with a minimal contact. Brushing and lavage of the right bronchus intermedius a sent for cytology. Airway was observed with resolution of blood oozing. Patient was returned to PACU in stable condition. CT chest from 02/01: 1. No evidence of pulmonary emboli. 2. Right infrahilar mass causing complete collapse of the right middle and right lower lobes with narrowing of the right mainstem bronchus and encasement of the right superior pulmonary vein. Appearances are unchanged when compared to prior. 3. Unchanged small right pleural effusion. VTE: negative. PET SCAN: 1. Previously documented, clinically known large lobulated soft tissue mass centering around the intermediate bronchus associated with collapse consolidation of the right middle and right lower lobe of the lung currently measures approximately 7.2 x 6.0 cm, shows intense FDG avidity with SUV max of 7.4, highly suspicious for malignancy. Note is made of extension of the mass into the adjacent part of the mediastinum. Note is also made of absence of separate FDG avid ipsilateral or contralateral mediastinal or hilar lymphadenopathy. 2. Note is made of FDG avid ipsilateral [id number] size right-sided pleural effusion with SUV max of 3.1, suspicious for metastatic pleural involvement. 3. FDG avid approximately 1.1 cm right inferior axillary soft tissue nodule. A similar appearing additional subcutaneous soft tissue nodules are also noted within the left mid lateral abdominal wall and left superior gluteal region. In addition, 1.8 cm soft tissue nodule with intense FDG avidity is seen within the left mid lateral abdominal wall inseparable from the transversus abdominis musculature abutting the tip of the left iliac bone. All of these soft tissue lesions likely represent additional metastatic disease involving lymph nodes versus subcutaneous soft tissue metastatic nodules. These lesions can be biopsied using imaging guidance, for definitive tissue diagnosis, if clinically appropriate. 4. No FDG avid disease within the liver or adrenal glands. Incidental note is made of right adrenal non-FDG avid lipid rich adrenal adenoma. 5. Focal FDG avidity within the sigmoid colon with SUV max of 5.3, may represent inflammatory changes. Direct visualization/colonoscopy however may also be considered for further clarification, if not recently performed. 6. Asymmetric subtle focal increased FDG avidity in the region of the right-sided L2-3 facet joint, may represent arthritic changes with SUV max of 4.0. Follow-up imaging is recommended for further clarification. CEA: 2.80. PLAN: Waiting for the final results on pathology including the molecular testing. PDL1: 2%. Unfortunately the rest of block did not have enough tissue, to proceed with other molecular markers including EGFR, ALK, etc. Fortunately a 2nd block was available. That will be sent for the above testing. Hopefully there will be an actionable mutation. Patient is rather frail, so chemo may not be ideal for her. Meanwhile will proceed with MRI of the brain for staging purposes. She was given prescriptions for Ativan for anxiety and Zofran for nausea. We are keeping in touch with her daughter to give her updates. She will return in a couple weeks for a follow-up. Thank you, CC: - Time Spent With Patient Time Spent with Patient (in minutes): 30
[2022-02-22 14:11] LABS: MANUAL DIFF FLAG NO
[2022-02-22 14:16] LABS: Basophils Percent Auto 0.3 % (0-2); Eosinophils Absolute Auto 0.2 X10*3/uL (0.0-0.4); Eosinophils Percent Auto 1.5 % (0-4); Hematocrit 41.1 % (37.0-47.0); Hemoglobin 14.1 g/dl (12.0-16.0); Imm Gran Abs Auto 0.05 X10*3/uL (0.00-0.03); Imm Gran Pct Auto 0.4 % (0.0-0.4); Lymphocytes Absolute Auto 1.6 X10*3/uL (1.2-4.9); Mean Corpuscular HGB Conc 34.3 g/dl (31.0-35.0); Mean Corpuscular Hemoglobin 28.4 pg (27.0-33.0); Mean Corpuscular Volume 82.7 fL (80.0-98.0); Mean Platelet Volume 9.2 fL (9.4-12.3); Monocytes Absolute Auto 0.8 X10*3/uL (0.1-1.2); Monocytes Percent Auto 5.9 % (2-11); Neutrophils Absolute Auto 10.9 x10*3/uL (2.0-8.3); Neutrophils Percent Auto 79.9 % (45-73); Platelet Count 443 X10*3/uL (160-400); Red Blood Count 4.97 X10*6/uL (4.20-5.50); Red Cell Distribution Width 11.9 % (11.0-16.0); White Blood Count 13.7 X10*3/uL (4.8-10.8)
[2022-02-22 14:47] LABS: Alanine Aminotransferase 16 U/L (0-31); Albumin Level 4.2 g/dL (3.5-5.0); Alkaline Phosphatase 83 U/L (39-117); Anion Gap 17 (12-20); Aspartate Amino Transferase 16 U/L (5-31); Bilirubin Total 0.7 mg/dL (0.0-1.0); Blood Urea Nitrogen 15 mg/dL (9-16); Calcium 9.7 mg/dL (8.4-10.2); Carbon Dioxide 27 mmol/L (22-29); Chloride 90 mmol/L (96-108); Creatinine Clr Calc Pharmacy 55.5; Estimated Glomerular Filt Rate > 60; Glucose Random 171 mg/dL (60-115); Potassium 3.5 mmol/L (3.3-5.1); Sodium 130 mmol/L (135-145); Total Protein 7.3 g/dL (6.5-8.0)
--- NOTE | 2022-02-22 14:50 | MHC.HEMONC ---
I met with patient, her , daughter and son following Consultation for lung cancer. She presents with SOB and weakness, low appetite, weight loss and epigastric distress following po intake. She requests visit with Perforator, possible appetite stimulant, and vitamins that could help. I will have Dr Veras address the latter and I will consult with Hospital Perforator to schedule an appointment. Pt has been c/o h/a and Dr Veras is ordering brain MRI to r/o mets. She will then be brought in for chemo teach. I provided my contact information. Pt filled out HCP while here.
--- NOTE | 2022-02-22 16:12 | MHC.HEMONCMA ---
Pt was in for consult. Clinical summary reviewed and updated, VSS. Labs were drawn. Pt to return in a few weeks.
[2022-02-23 09:32] LABS: HBS Num1 27.91 mIU/mL (0-7.99); HBc Num1 0.66 S/CO (0.00-0.79); HBsAGNum1 0.26 S/CO (0.00-0.99); Hepatitis B Core Antibody Nonreactive (Nonreactive); Hepatitis B Surface Antigen Negative (Negative); ~Hepatitis B Surface Antibody REACTIVE (Nonreactive)
--- NOTE | 2022-02-23 15:05 | HO.HEMONCSCH ---
MRI sent to [facility].
--- NOTE | 2022-02-26 13:24 | MHC.HEMONC ---
Pt dtr called re: ? appt for chemo teach. I explained we are still waiting for molecular studies on path to see what treatment Dr Veras wants her to have. Oral pills are an option pending studies. Pt is anxious to get started as she is getting weaker and has no appetite. her dtr is obtaining foods and full liquids that she can tolerate and that have high protein and calories. I have also sent referral via [place] to [facility] to see if they are able to facilitate a Nutrition Consult for pt.
--- NOTE | 2022-02-27 12:22 | MHC.HEMONC ---
MRI of brain scheduled for 03/06 at 4:30. Pt is aware per [place].
--- NOTE | 2022-03-07 13:20 | MHC.HEMONC ---
Telephone call to pt to let her know a prescription for oxycodone was sent to her pharmacy, and the fiction and nonfiction writer prose will be in touch next week to schedule appointment.
[2022-03-12 11:51] VITALS: BP 161/98; PULSE 84; RESP 14; TEMP 36.6; O2SAT 91; BMI 21.7
--- NOTE | 2022-03-12 12:10 | P.PNHO-ONC_ITS ---
Medical Summary - Medical Summary Date of Service: 03/12/22 Chief complaint: Follow-up for: Non-small cell lung carcinoma. Medical Summary: DIAGNOSIS: NON-SMALL LUNG CARCINOMA. STAGE IV DISEASE. Axillary adenopathy With multiple subcutaneous nodules. Interval History Interval history: Caterina Ojeda is a 76 year old lady, here for a follow-up visit. She complains of shortness of breath. Her daughter tested her O2 sat. She was standing brushing her teeth and it was 85%. After she sat in the wheelchair it was still 86-88%. She has pain in her left lower back. She has also noticed nodules in her left neck and under the left breast, over the past couple of weeks. She feels rather fatigued. Denies fever chills or night sweats. Appetite is low. She has lost 20% of her body weight since September. She has noted headaches that come on on a daily basis recently . They are localize to the front and back of the head. She has been taking Tylenol ad 4 times . Today she felt dizzy. She has been short of breath. Denies chest pain. She has had digestive problems. She gets heartburn nausea and dysphagia. Bowels are constipated. No gross blood in the stools. Denies any dysuria or hematuria. Denies any joint pains. She has history of anxiety. Recently she has been depressed. Denies skin rashes no pruritus. PRESENTING HISTORY: She was referred by Dr. Banks on account of recent diagnosis of non-small cell lung carcinoma. She tells me she had onset of symptoms beginning of the year. She was in [place] then. She felt, as if she was coming down with Hay fever. She had a sore throat. In September she noted trouble breathing. She felt phlegm in the throat that was hard to cough up. She noted wheezing. She was prescribed an inhaler. A chest x-ray were done on 09/14, which revealed: -Coarsening interstitial markings of unknown chronicity. -No engorgement central vasculature to suggest superimposed interstitial edema. No overt effusion. She was then referred to Dr. Mehta. She underwent a bronchoscopy under the care of Dr. Mehta, which revealed: Flexible bronchoscopy performed through laryngeal mask airway with airway placed for the procedure. Flexible bronchoscope advanced through the tracheobronchial tree with visualization of normal patent airways and bronchial mucosa on the left side. On the right-side right main bronchus and right upper lobe bronchus were noted to be in normal and patent With normal mucosa. Opening of the right bronchus intermedius was obstructed by edematous inflamed and easily friable with minimal contact mucosa. No biopsies were obtained secondary to significant oozing of the mucosa with a minimal contact. Brushing and lavage of the right bronchus intermedius a sent for cytology. Airway was observed with resolution of blood oozing. Patient was returned to PACU in stable condition. CT chest from 02/01: 1. No evidence of pulmonary emboli. 2. Right infrahilar mass causing complete collapse of the right middle and right lower lobes with narrowing of the right mainstem bronchus and encasement of the right superior pulmonary vein. Appearances are unchanged when compared to prior. 3. Unchanged small right pleural effusion. VTE: negative. PET SCAN: 1. Previously documented, clinically known large lobulated soft tissue mass centering around the intermediate bronchus associated with collapse consolidation of the right middle and right lower lobe of the lung currently measures approximately 7.2 x 6.0 cm, shows intense FDG avidity with SUV max of 7.4, highly suspicious for malignancy. Note is made of extension of the mass into the adjacent part of the mediastinum. Note is also made of absence of separate FDG avid ipsilateral or contralateral mediastinal or hilar lymphadenopathy. 2. Note is made of FDG avid ipsilateral [id number] size right-sided pleu ral effusion with SUV max of 3.1, suspicious for metastatic pleural involvement. 3. FDG avid approximately 1.1 cm right inferior axillary soft tissue nodule. A similar appearing additional subcutaneous soft tissue nodules are also noted within the left mid lateral abdominal wall and left superior gluteal region. In addition, 1.8 cm soft tissue nodule with intense FDG avidity is seen within the left mid lateral abdominal wall inseparable from the transversus abdominis musculature abutting the tip of the left iliac bone. All of these soft tissue lesions likely represent additional metastatic disease involving lymph nodes versus subcutaneous soft tissue metastatic nodules. These lesions can be biopsied using imaging guidance, for definitive tissue diagnosis, if clinically appropriate. 4. No FDG avid disease within the liver or adrenal glands. Incidental note is made of right adrenal non-FDG avid lipid rich adrenal adenoma. 5. Focal FDG avidity within the sigmoid colon with SUV max of 5.3, may represent inflammatory changes. Direct visualization/colonoscopy however may also be considered for further clarification, if not recently performed. 6. Asymmetric subtle focal increased FDG avidity in the region of the right- sided L2-3 facet joint, may represent arthritic changes with SUV max of 4.0. Follow-up imaging is recommended for further clarification. PAST MEDICAL HISTORY: Seen in the ED on 02/05: Patient comes to the emergency room complaining of palpitations. Patient states that 4 days ago she was diagnosed with new onset atrial flutter, started on Eliquis 2.5 mg. Patient states that before she left the hospital, she was back in sinus rhythm. Today, patient was checking her blood pressure, and her heart rate was between 110 and 120. Patient occasionally feeling palpitations. No chest pain. 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 Patient's CTA scan for pulmonary embolism was -4 days ago. Since then, patient has been on Eliquis. Patient denies lower extremity pain or edema. FAMILY HISTORY: Brother had prostate cancer. A brother and a sister had bladder cancer. Maternal aunt had breast cancer. 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 She is . Has 3 children. She did smoke off and on. They would drink few times a week, went to happy hour. She was very active. They walked a lot. Played golf. Review of Systems - Constitutional Reports no additional constitutional complaints, Reports weakness, Reports weight loss - Eyes Reports no additional eye complaints - ENT Reports no additional ear, nose, mouth, and throat complaints - Cardiovascular Reports no additional cardiovascular complaints, Reports shortness of breath - Respiratory Reports no additional respiratory complaints, Reports dyspnea, Reports dyspnea on exertion - Gastrointestinal Reports no additional gastrointestinal complaints - Genitourinary Reports no additional female genitourinary complaints - Musculoskeletal Reports no additional musculoskeletal complaints - Integumentary/Breasts Skin/Breast: Reports no additional skin complaints - Neurologic Reports no additional neurologic complaints, Reports dizziness - Psychiatric Reports no additional psychiatric complaints - Endocrine Reports no additional endocrine complaints - Hematologic/Lymphatic Reports no additional hematologic/lymphatic complaints - Allergic/Immunologic Reports no additional allergic/immunologic complaints [facility] Medical History: Medical History (Last Reviewed 03/12/22 @ 15:30 by Angelika Be CNP) Atrial fibrillation Onset Date: ~2021 GERD (gastroesophageal reflux disease) History of melanoma HTN (hypertension) Lung cancer Onset Date: ~2021 Osteoporosis Onset Date: ~2016 Functional capacity: wheelchair bound Patient : No Family History: Family History (Last Reviewed 03/12/22 @ 15:30 by Angelika Be CNP) Mother Alzheimer disease Father Enlarged heart Brother Bladder cancer Prostate cancer Sister Bladder cancer Maternal Aunt Breast cancer Surgical History: Surgical History (Last Reviewed 03/12/22 @ 15:30 by Angelika Be CNP) History of breast surgery History of bronchoscopy Onset Date: ~2021 History of cholecystectomy Onset Date: ~1999 History of colonoscopy History of hysterectomy Onset Date: ~1996 Social History: Social History (Last Reviewed 03/12/22 @ 15:30 by Angelika Be CNP) Living Situation History: Household Members: Spouse Housing: House Are you a primary child care center administrator to a significant other at home: No Do you presently have visiting nurse or other home services: No Tobacco History: Patient Tobacco Use Status: Former Tobacco user Tobacco use type: Cigarette Years Smoked: 10 +/- Smoke Quit Date: 1986 Advance Directives: Advance Directives: Yes Advance Directives on File: Yes Advance Directives Date on File: 02/22/22 Occupation Assessmet: service: No Current occupational status: retired Oncology Screenings - ECOG Performance Status ECOG Performance Status: 2 Home Medications and Allergies Home Medications Medication Instructions Recorded Confirmed Type albuterol sulfate 90 mcg/actuation 1 puff PO Q4H 11/14/21 03/12/22 History aerosol inhaler fluticasone 250 mcg-salmeterol 50 1 ea inhalation BID 11/14/21 03/12/22 History mcg/dose blistr powdr for inhalation (Advair Diskus) lisinopril 20 1 tab PO DAILY 11/14/21 03/12/22 History mg-hydrochlorothiazide 12.5 mg tablet omeprazole 20 mg capsule,delayed 20 mg PO DAILY 11/14/21 03/12/22 History release [employer] 1 tab PO DAILY 01/04/22 03/12/22 History Tylenol 2 tab PO DAILY PRN Headache 01/04/22 03/12/22 History Vitamin C 1 tab PO DAILY 01/04/22 03/12/22 History calcium 1 tab PO DAILY 01/04/22 03/12/22 History vitamin E 1 tab PO DAILY 01/04/22 03/12/22 History lorazepam 0.5 mg tablet 0.5 mg PO BEDTIME PRN Anxiety 02/08/22 03/12/22 History ondansetron HCl 4 mg tablet 4 mg PO DAILY 02/08/22 03/12/22 History Allergies Allergy/AdvReac Type Severity Reaction Status Date / Time No Known Allergies Allergy Verified 03/12/22 11:55 Exam Vital signs: Vital Signs Temp 97.9 F 03/12/22 11:51 Pulse 84 03/12/22 11:51 Resp 14 03/12/22 11:51 BP 161/98 H 03/12/22 11:51 Pulse Ox 91 L 03/12/22 11:51 O2 Del Method 03/12/22 11:51 Intake & Output 03/11/22 03/12/22 03/12/22 18:59 06:59 18:59 Other: Weight 52.3 kg Weight in Grams 10613 Weight 52.3 kg BMI result Body Mass Index 21.7 - Constitutional Present: mild distress - Routine HEENT Exam Head: Present: normal inspection Eye: Present: normal appearance ENT: Present: mucous membranes moist - Routine Neck Exam Present: full ROM - Routine Respiratory Exam Present: CTAB - Routine Cardiovascular Exam Cardiovascular: Present: RRR, S1, S2 - Routine Abdominal Exam Present: soft, nontender - Routine Rectal Exam Patient deferred: digital exam - Routine Extremities Exam Present: nontender - Routine Back/Spine/Pelvis Exam Back/Spine: Present: full ROM - Routine Skin Exam Present: intact - Routine Neurological Exam Present: alert, oriented X3 - Routine Psychiatric Exam Present: normal affect Data - Labs CBC & Chem 7: 02/22/22 14:00 02/22/22 14:00 Labs: 02/22/22 14:00 CEA [Carcinoembryonic Antigen] Routine Complete Blood Count Auto Diff Stat Comprehensive Met. Panel Stat Hepatitis B Profile Stat 02/22/22 15:19 Add Laboratory Test Routine Laboratory Last Values WBC 13.7 X10*3/uL (4.8-10.8) H 02/22/22 14:00 RBC 4.97 X10*6/uL (4.20-5.50) 02/22/22 14:00 Hgb 14.1 g/dl (12.0-16.0) 02/22/22 14:00 Hct 41.1 % (37.0-47.0) 02/22/22 14:00 MCV 82.7 fL (80.0-98.0) 02/22/22 14:00 MCH 28.4 pg (27.0-33.0) 02/22/22 14:00 MCHC 34.3 g/dl (31.0-35.0) 02/22/22 14:00 RDW 11.9 % (11.0-16.0) 02/22/22 14:00 Plt Count 443 X10*3/uL (160-400) H 02/22/22 14:00 MPV 9.2 fL (9.4-12.3) L 02/22/22 14:00 Immature Gran % (Auto) 0.4 % (0.0-0.4) 02/22/22 14:00 Neut % (Auto) 79.9 % (45-73) H 02/22/22 14:00 Lymph % (Auto) 12.0 % (20-40) L 02/22/22 14:00 [place] % (Auto) 5.9 % (2-11) 02/22/22 14:00 Eos % (Auto) 1.5 % (0-4) 02/22/22 14:00 Baso % (Auto) 0.3 % (0-2) 02/22/22 14:00 Lymph # (Auto) 1.6 X10*3/uL (1.2-4.9) 02/22/22 14:00 [place] # (Auto) 0.8 X10*3/uL (0.1-1.2) 02/22/22 14:00 Eos # (Auto) 0.2 X10*3/uL (0.0-0.4) 02/22/22 14:00 Baso # (Auto) 0.0 X10*3/uL (0.0-0.2) 02/22/22 14:00 Abs Immat Gran (auto) 0.05 X10*3/uL (0.00-0.03) H 02/22/22 14:00 Absolute Neuts (auto) 10.9 x10*3/uL (2.0-8.3) H 02/22/22 14:00 Absolute Nucleated RBC 0.000 X10*3/uL (0.0-0.012) 02/22/22 14:00 Nucleated RBC % (auto) 0.0 /100WBC (0.0-0.2) 02/22/22 14:00 Sodium 130 mmol/L (135-145) L 02/22/22 14:00 Potassium 3.5 mmol/L (3.3-5.1) D 02/22/22 14:00 Chloride 90 mmol/L (96-108) L 02/22/22 14:00 Carbon Dioxide 27 mmol/L (22-29) 02/22/22 14:00 Anion Gap 17 (12-20) 02/22/22 14:00 BUN 15 mg/dL (9-16) 02/22/22 14:00 Creatinine 0.63 mg/dL (0.5-1.4) 02/22/22 14:00 Estim Creat Clear Calc 55.5 02/22/22 14:00 Estimated GFR > 60 02/22/22 14:00 Random Glucose 171 mg/dL (60-115) H 02/22/22 14:00 Calcium 9.7 mg/dL (8.4-10.2) 02/22/22 14:00 Total Bilirubin 0.7 mg/dL (0.0-1.0) 02/22/22 14:00 AST 16 U/L (5-31) 02/22/22 14:00 ALT 16 U/L (0-31) 02/22/22 14:00 Alkaline Phosphatase 83 U/L (39-117) 02/22/22 14:00 Total Protein 7.3 g/dL (6.5-8.0) 02/22/22 14:00 Albumin 4.2 g/dL (3.5-5.0) 02/22/22 14:00 Carcinoembryonic Ag 2.80 ng/mL 02/22/22 14:00 Hep Bs Antigen Negative (Negative) 02/22/22 14:00 Hep Bs Antibody REACTIVE (Nonreactive) 02/22/22 14:00 Hep B Core Total Ab Nonreactive (Nonreactive) 02/22/22 14:00 Assessment and Plan Patient Active problem list reviewed?: Yes (1) 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 She underwent a bronchoscopy under the care of Dr. Mehta, which revealed: Flexible bronchoscopy performed through laryngeal mask airway with airway placed for the procedure. Flexible bronchoscope advanced through the tracheobronchial tree with visualization of normal patent airways and bronchial mucosa on the left side. On the right-side right main bronchus and right upper lobe bronchus were noted to be in normal and patent With normal mucosa. Opening of the right bronchus intermedius was obstructed by edematous inflamed and easily friable with minimal contact mucosa. No biopsies were obtained secondary to significant oozing of the mucosa with a minimal contact. Brushing and lavage of the right bronchus intermedius a sent for cytology. Airway was observed with resolution of blood oozing. Patient was returned to PACU in stable condition. CT chest from 02/01: 1. No evidence of pulmonary emboli. 2. Right infrahilar mass causing complete collapse of the right middle and right lower lobes with narrowing of the right mainstem bronchus and encasement of the right superior pulmonary vein. Appearances are unchanged when compared to prior. 3. Unchanged small right pleural effusion. VTE: negative. PET SCAN: 1. Previously documented, clinically known large lobulated soft tissue mass centering around the intermediate bronchus associated with collapse consolidation of the right middle and right lower lobe of the lung currently measures approximately 7.2 x 6.0 cm, shows intense FDG avidity with SUV max of 7.4, highly suspicious for malignancy. Note is made of extension of the mass into the adjacent part of the mediastinum. Note is also made of absence of separate FDG avid ipsilateral or contralateral mediastinal or hilar lymphadenopathy. 2. Note is made of FDG avid ipsilateral [id number] size right-sided pleural effusion with SUV max of 3.1, suspicious for metastatic pleural involvement. 3. FDG avid approximately 1.1 cm right inferior axillary soft tissue nodule. A similar appearing additional subcutaneous soft tissue nodules are also noted within the left mid lateral abdominal wall and left superior gluteal region. In addition, 1.8 cm soft tissue nodule with intense FDG avidity is seen within the left mid lateral abdominal wall inseparable from the transversus abdominis musculature abutting the tip of the left iliac bone. All of these soft tissue lesions likely represent additional metastatic disease involving lymph nodes versus subcutaneous soft tissue metastatic nodules. These lesions can be biopsied using imaging guidance, for definitive tissue diagnosis, if clinically appropriate. 4. No FDG avid disease within the liver or adrenal glands. Incidental note is made of right adrenal non-FDG avid lipid rich adrenal adenoma. 5. Focal FDG avidity within the sigmoid colon with SUV max of 5.3, may represent inflammatory changes. Direct visualization/colonoscopy however may also be considered for further clarification, if not recently performed. 6. Asymmetric subtle focal increased FDG avidity in the region of the right- sided L2-3 facet joint, may represent arthritic changes with SUV max of 4.0. Follow-up imaging is recommended for further clarification. CEA: 2.80. l proceeded with MRI of the brain for staging purposes. This was negative for Mets. Waiting for the final results on pathology including the molecular testing. PDL1: 2%. Unfortunately the rest of block did not have enough tissue, to proceed with other molecular markers including EGFR, ALK, etc. Fortunately a 2nd block was available. That will be sent for the above testing. PLAN: We called pathology today. Apparently the results of the molecular testing should be back by tomorrow. Hopefully she will have an actionable mutation. Patient is rather frail, so chemo may not be ideal for her. In the meantime I will give her information about chemo and targeted agent. Carboplatin/Alimta/pembrolizumab. She was given prescriptions for Ativan for anxiety and Zofran for nausea. Her O2 sat is low on minimal exertion. l requested respiratory to assess it today. It came back low. In view of that and the shortness of breath, will refer her to the emergency room for further evaluation. It may be that her pleural effusion has increased. I discussed the case with the ED doc who has graciously accepted her, to his care. Will request for oxygen supplementation at home. We are keeping in touch with her daughter to give her updates. She will return in a week for a follow-up. Thank you, CC: Dr. Banks. Addendum: Chest x-ray from the ED: Moderate right pleural effusion represents interval increase in the previous study. Increased pulmonary vascular congestion as well. She will need thoracentesis/PleurX catheter placement. - Time Spent With Patient Time Spent with Patient (in minutes): 30
[2022-03-12 12:59] VITALS: PULSE 78; PULSE 84; PULSE 85; O2SAT 88; O2SAT 93; O2SAT 95
--- NOTE | 2022-03-12 16:35 | MHC.HEMONCMA ---
Pt was in for follow up. Clinical summary reviewed and updated, VSS. Pt to return in 1 week.
--- NOTE | 2022-03-13 09:10 | MHC.HEMONC ---
I met with pt, her and daughter yesterday following f/u with Dr Veras. We still are awaiting additional molecular studies. Pt had brain MRI and this was negative. She continues to have very low appetite, abdominal pain that is not always alleviated with oxycodone only every 8 hrs. She is very dyspneic and her dtr reports pulse ox readings as low as 85% after activity. Respiratory Therapist called and dis test with pt and agreed she met criteria for home O2. Because of her worseing breathing, Dr Veras had her go to ER for imaging and treatment. I brought her down and Dr Veras spoke to ER MD. I did provide them information on possible regimen of Carbo/Pembro/Pemetrexed per Dr Veras but final decision will be made once pt results are back (path). [facility] provided nutrition information and will follow up with Emergency Room Physician.
--- NOTE | 2022-03-16 10:40 | HO.HEMONCPA ---
Addendum entered by Rochelle Recinos 03/19/22 17:12: PA FOR J1453 ?Emend (fosaprepitant) 150mg IV, I4249-Emmrrzanid 750mg IV & ,C7056-Bhbhcpcqrmb 500mgIV APPROVED. AUTH# [id number]. DOS- 03/16/22 to 03/16/2023. DOCUMENT SCANNED IN THE CHART. INITIAL PA REQUEST FOR NEULASTA, DID NOT MEET CRITERIA OF MEDICAL NECESSITY BECAUSE PER [facility] [place] REGIMEN GUIDELINE, FEBRILE NEUTROPENIA RISK IS LOW FOR THIS TREATMENT REGIMEN Original Note: PA FOR J1453 ?Emend (fosaprepitant) 150mg IV, Y5340-Mvpyatwigo 750mg IV,N4756-Mkbdflioech 500mgIV & J2506- Neulasta 6mg SQ every 21 days REQUESTED. AWAITING DECISION
--- NOTE | 2022-03-16 11:27 | HO.HEMONCPA ---
Addendum entered by Rochelle Recinos 03/19/22 11:24: PA FOR T2169-Rcmvopkascjwl 200mg IV every 21 DAYS APPROVED. AUTH#[id number]. DOS- 03/16/22 to 03/16/2023. DOCUMENT SCANNED IN THE CHART Original Note: [id number]-Olqlgpjotydzv 200mg IV every 21 days REQUESTED. AWAITING DECISION
--- NOTE | 2022-03-16 13:42 | MHC.HEMONC ---
Faxed order form for pleural drainage supplies to [facility] (# ) confirmation received.
--- NOTE | 2022-03-16 15:17 | MHC.HEMONC ---
Chemotherapy and chemo teach scheduled for 03/22/22-pending PA. Pharmacy notified. Daughter Kristen notified (pt's health care proxy)
[2022-03-22 09:50] LABS: MANUAL DIFF FLAG NO
[2022-03-22 09:59] LABS: Basophils Absolute Auto 0.1 X10*3/uL (0.0-0.2); Basophils Percent Auto 0.5 % (0-2); Eosinophils Absolute Auto 0.2 X10*3/uL (0.0-0.4); Eosinophils Percent Auto 1.8 % (0-4); Hematocrit 43.7 % (37.0-47.0); Hemoglobin 14.4 g/dl (12.0-16.0); Imm Gran Abs Auto 0.09 X10*3/uL (0.00-0.03); Imm Gran Pct Auto 0.7 % (0.0-0.4); Lymphocytes Absolute Auto 1.9 X10*3/uL (1.2-4.9); Lymphocytes Percent Auto 15.5 % (20-40); Mean Corpuscular Hemoglobin 28.5 pg (27.0-33.0); Mean Corpuscular Volume 86.4 fL (80.0-98.0); Mean Platelet Volume 8.9 fL (9.4-12.3); Monocytes Absolute Auto 0.6 X10*3/uL (0.1-1.2); Neutrophils Absolute Auto 9.5 x10*3/uL (2.0-8.3); Neutrophils Percent Auto 76.5 % (45-73); Platelet Count 435 X10*3/uL (160-400); Red Blood Count 5.06 X10*6/uL (4.20-5.50); Red Cell Distribution Width 12.4 % (11.0-16.0); White Blood Count 12.4 X10*3/uL (4.8-10.8)
[2022-03-22 10:00] VITALS: BP 130/80; PULSE 85; RESP 19; TEMP 36.4; O2SAT 100; BMI 20.4
[2022-03-22] MEDS: LORazepam 0.5 MG TABLET PO (10:21)
[2022-03-22 10:31] LABS: Alanine Aminotransferase 27 U/L (0-31); Albumin Level 3.5 g/dL (3.5-5.0); Alkaline Phosphatase 68 U/L (39-117); Anion Gap 12 (12-20); Aspartate Amino Transferase 23 U/L (5-31); Bilirubin Total 0.8 mg/dL (0.0-1.0); Blood Urea Nitrogen 13 mg/dL (9-16); Calcium 9.1 mg/dL (8.4-10.2); Carbon Dioxide 31 mmol/L (22-29); Chloride 95 mmol/L (96-108); Creatinine Clr Calc Pharmacy 56.4; Estimated Glomerular Filt Rate > 60; Glucose Random 170 mg/dL (60-115); Potassium 3.6 mmol/L (3.3-5.1); Sodium 134 mmol/L (135-145); Thyroid Stimulating Hormone 1.05 uIU/mL (0.32-4.0); Total Protein 6.2 g/dL (6.5-8.0)
[2022-03-22 10:32] LABS: HBS Num1 24.37 mIU/mL (0-7.99); HBc Num1 0.63 S/CO (0.00-0.79); HBsAGNum1 0.34 S/CO (0.00-0.99); Hepatitis B Core Antibody Nonreactive (Nonreactive); Hepatitis B Surface Antigen Negative (Negative); ~Hepatitis B Surface Antibody REACTIVE (Nonreactive)
[2022-03-22] MEDS: Acetaminophen 325 MG TABLET 650 MG PO (10:50)
[2022-03-22] MEDS: dexAMETHasone sod phosphate/NS 12 MG/50 ML PIGGYBACK 200 MG IV (10:56)
[2022-03-22] MEDS: diphenhydrAMINE HCL 50 MG/ML VIAL 25 MG IVPUSH (10:59)
[2022-03-22] MEDS: Morphine Sulfate ER 30 MG TABLET.ER PO (11:04)
[2022-03-22] MEDS: CARBOplatin 410 MG in 0.9 % Sodium Chloride 250 ML 582 MG IV (13:08)
--- NOTE | 2022-03-22 15:40 | MHC.HEMONC ---
Pt here for chemo teach and C1D1 Pemetrexed/Pembrolizumab/Carboplatine. Daughter and with pt. Chemo teach given on Pemetrexed/Pembrolizumab/Carboplatin. Side effects discussed, when to call clinic discussed, pre medications discussed, hydration, lab work, course of treatment. Educational literature given on chemo medications. Consent obtained. Labs drawn by annylbotomist-specimen to lab. Pt received B-12 injection on 03/16/22. Pt states she continues to take folic acid as directed. #22 angio inserted in right wrist with blood return noted. Lab results reviewed-okay to receive treatment today. Pre medicated with tylenol, zofran, decadron, benadryl. Pt states she has 7/10 abdominal pain and feels anxious Dr Veras notified. Lorazepan 0.5mg orally and MS contin 30mg orally given as directed. Pt states pain level decreased to 2/10 after pain medication. Pembrolizumab/Pemetrexed/Carboplatin given as directed-tolerated well. Peripheral IV removed-no edema or redness at site. Discharge packet given with next appointment scheduled. Pt to return next for lab draw. Pt instructed to call with any questions or side effects. Educated on when to take dexamethasone 3 days prior to next chemotherapy for total of 3 days. Pt and family verbalize understanding to information given
--- NOTE | 2022-03-22 17:24 | PM.HEMONCPN ---
Medical Summary - Medical Summary Date of Service: 03/22/22 Chief complaint: Follow-up for: Non-small cell lung carcinoma. Medical Summary: DIAGNOSIS: NON-SMALL LUNG CARCINOMA. STAGE IV DISEASE. Axillary adenopathy With multiple subcutaneous nodules. CURRENT THERAPY: S/P Pleurax catheter placement. Here to start on chemotherapy. Interval History Interval history: Caterina Ojeda is a 76 year old lady, here for a follow-up visit. She was in house between 03/12 and 03/16, Discharge summary: She is feeling better, S/P placement of the pleurax catheter. It drained around 900cc, on saturday and around the same yesterday. Will decrease the frequency, once the drainage lessens. She complains of shortness of breath. Her daughter tested her O2 sat. She was standing brushing her teeth and it was 85%. After she sat in the wheelchair it was still 86-88%. She has pain in her left lower back. She has also noticed nodules in her left neck and under the left breast, over the past couple of weeks. She feels rather fatigued. Denies fever chills or night sweats. Appetite is low. She has lost 20% of her body weight since September. She has noted headaches that come on on a daily basis recently . They are localize to the front and back of the head. She has been taking Tylenol ad 4 times . Today she felt dizzy. She has been short of breath. Denies chest pain. She has had digestive problems. She gets heartburn nausea and dysphagia. Bowels are constipated. No gross blood in the stools. Denies any dysuria or hematuria. Denies any joint pains. She has history of anxiety. Recently she has been depressed. Denies skin rashes no pruritus. PRESENTING HISTORY: She was referred by Dr. Banks on account of recent diagnosis of non-small cell lung carcinoma. She tells me she had onset of symptoms beginning of the year. She was in [place] then. She felt, as if she was coming down with Hay fever. She had a sore throat. In September she noted trouble breathing. She felt phlegm in the throat that was hard to cough up. She noted wheezing. She was prescribed an inhaler. A chest x-ray were done on 09/14, which revealed: -Coarsening interstitial markings of unknown chronicity. -No engorgement central vasculature to suggest superimposed interstitial edema. No overt effusion. She was then referred to Dr. Mehta. She underwent a bronchoscopy under the care of Dr. Mehta, which revealed: Flexible bronchoscopy performed through laryngeal mask airway with airway placed for the procedure. Flexible bronchoscope advanced through the tracheobronchial tree with visualization of normal patent airways and bronchial mucosa on the left side. On the right-side right main bronchus and right upper lobe bronchus were noted to be in normal and patent With normal mucosa. Opening of the right bronchus intermedius was obstructed by edematous inflamed and easily friable with minimal contact mucosa. No biopsies were obtained secondary to significant oozing of the mucosa with a minimal contact. Brushing and lavage of the right bronchus intermedius a sent for cytology. Airway was observed with resolution of blood oozing. Patient was returned to PACU in stable condition. CT chest from 02/01: 1. No evidence of pulmonary emboli. 2. Right infrahilar mass causing complete collapse of the right middle and right lower lobes with narrowing of the right mainstem bronchus and encasement of the right superior pulmonary vein. Appearances are unchanged when compared to prior. 3. Unchanged small right pleural effusion. VTE: negative. PET SCAN: 1. Previously documented, clinically known large lobulated soft tissue mass centering around the intermediate bronchus associated with collapse consolidation of the right middle and right lower lobe of the lung currently measures approximately 7.2 x 6.0 cm, shows intense FDG avidity with SUV max of 7.4, highly suspicious for malignancy. Note is made of extension of the mass into the adjacent part of the mediastinum. Note is also made of absence of separate FDG avid ipsilateral or contralateral mediastinal or hilar lymphadenopathy. 2. Note is made of FDG avid ipsilateral [id number] size right-sided pleural effusion with SUV max of 3.1, suspicious for metastatic pleural involvement. 3. FDG avid approximately 1.1 cm right inferior axillary soft tissue nodule. A similar appearing additional subcutaneous soft tissue nodules are also noted within the left mid lateral abdominal wall and left superior gluteal region. In addition, 1.8 cm soft tissue nodule with intense FDG avidity is seen within the left mid lateral abdominal wall inseparable from the transversus abdominis musculature abutting the tip of the left iliac bone. All of these soft tissue lesions likely represent additional metastatic disease involving lymph nodes versus subcutaneous soft tissue metastatic nodules. These lesions can be biopsied using imaging guidance, for definitive tissue diagnosis, if clinically appropriate. 4. No FDG avid disease within the liver or adrenal glands. Incidental note is made of right adrenal non-FDG avid lipid rich adrenal adenoma. 5. Focal FDG avidity within the sigmoid colon with SUV max of 5.3, may represent inflammatory changes. Direct visualization/colonoscopy however may also be considered for further clarification, if not recently performed. 6. Asymmetric subtle focal increased FDG avidity in the region of the right-sided L2-3 facet joint, may represent arthritic changes with SUV max of 4.0. Follow-up imaging is recommended for further clarification. PAST MEDICAL HISTORY: Seen in the ED on 02/05: Patient comes to the emergency room complaining of palpitations. Patient states that 4 days ago she was diagnosed with new onset atrial flutter, started on Eliquis 2.5 mg. Patient states that before she left the hospital, she was back in sinus rhythm. Today, patient was checking her blood pressure, and her heart rate was between 110 and 120. Patient occasionally feeling palpitations. No chest pain. 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 Patient's CTA scan for pulmonary embolism was -4 days ago. Since then, patient has been on Eliquis. Patient denies lower extremity pain or edema. FAMILY HISTORY: Brother had prostate cancer. A brother and a sister had bladder cancer. Maternal aunt had breast cancer. 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 She is . Has 3 children. She did smoke off and on. They would drink few times a week, went to happy hour. She was very active. They walked a lot. Played golf. Review of Systems - Constitutional Reports system reviewed and no additional complaints, except as documented - Eyes Reports system reviewed and no additional complaints, except as documented - ENT Reports system reviewed and no additional complaints, except as documented - Cardiovascular Reports system reviewed and no additional complaints, except as documented - Respiratory Reports no additional respiratory complaints - Gastrointestinal Reports system reviewed and no additional complaints, except as documented - Genitourinary Reports no additional female genitourinary complaints - Musculoskeletal Reports system reviewed and no additional complaints, except as documented - Integumentary/Breasts Skin/Breast: Reports no additional skin complaints - Neurologic Reports system reviewed and no additional complaints, except as documented, Reports dizziness, Reports weakness - Psychiatric Reports system reviewed and no additional complaints, except as documented - Endocrine Reports no additional endocrine complaints - Hematologic/Lymphatic Reports system reviewed and no additional complaints, except as documented - Allergic/Immunologic Reports system reviewed and no additional complaints, except as documented [facility] Medical History: Medical History (Last Updated 03/15/22 @ 12:22 by Isabelle Richards [facility]) Atrial fibrillation Onset Date: ~2021 GERD (gastroesophageal reflux disease) History of melanoma HTN (hypertension) Lung cancer Onset Date: ~2021 Osteoporosis Onset Date: ~2016 Functional capacity: wheelchair bound Patient : No Family History: Family History (Last Reviewed 03/12/22 @ 18:27 by MIN Galindo) Mother Alzheimer disease Father Enlarged heart Brother Bladder cancer Prostate cancer Sister Bladder cancer Maternal Aunt Breast cancer Surgical History: Surgical History (Last Reviewed 03/14/22 @ 13:57 by Roxy Polanco, PT) History of breast surgery History of bronchoscopy Onset Date: ~2021 History of cholecystectomy Onset Date: ~1999 History of colonoscopy History of hysterectomy Onset Date: ~1996 Social History: Social History (Last Reviewed 03/12/22 @ 18:27 by MIN Galindo) Living Situation History: Household Members: Spouse Housing: House Are you a primary child care center assistant director to a significant other at home: No Do you presently have visiting nurse or other home services: No Alcohol History Details: 1. How often do you have a drink containing alcohol?: b. Monthly or less 2. How many drinks containing alcohol do you have on a typical day when you are drinking?: a. 1 or 2 Tobacco History: Patient Tobacco Use Status: Former Tobacco user Tobacco use type: Cigarette Years Smoked: 10 +/- Smoke Quit Date: 1981 Second Hand Smoke Exposure: No Substance Use History: Use of substances other than those prescribed or required for medical reasons: No Domestic Abuse History: Have you been hit, kicked, punched, or otherwise hurt by someone within the past year? If so, by whom?: No Do you feel safe in your current relationship?: Yes Advance Directives: Advance Directives Date on File: 02/22/22 Homicidal Assessment: Do you have thoughts of harming others: None Do you have a plan to hurt others: No Plan Do you have the means to hurt others: No Nutrition Assessment: Recently lost weight without trying: Yes How much weight loss: 24-33 pounds Eating poorly because of decreased appetite: Yes Nutrition screen score: 6 Patient : No Occupation Assessmet: service: No Current occupational status: retired Home Medications and Allergies Current Medications: Current Medications Acetaminophen (Acetaminophen 325 Mg Tablet) 650 mg PO ONCE VLADIMIR Stop: 03/22/22 23:59 Last Admin: 03/22/22 10:50 Dose: 650 mg Diphenhydramine HCl (Diphenhydramine Hcl 50 Mg/Ml Vial) 25 mg IVPUSH ONCE VLADIMIR Stop: 03/22/22 23:59 Last Admin: 03/22/22 10:59 Dose: 25 mg Heparin Sodium (Porcine) (Heparin Sodium,Porcine Flush 500 Unit/5 Ml Syringe) 500 unit IVFLUSH ONCE VLADIMIR Stop: 03/22/22 23:59 Ondansetron HCl (Zofran) 16 mg in 50 mls @ 200 mls/hr IV ONCE VLADIMIR Stop: 03/22/22 23:59 Last Infusion: 03/22/22 11:09 Dose: Infused Dexamethasone Sodium Phosphate (Decadron) 12 mg in 50 mls @ 200 mls/hr IV ONCE VLADIMIR Stop: 03/22/22 23:59 Last Infusion: 03/22/22 12:15 Dose: Infused Pemetrexed 500 mg/ Pemetrexed (250 mg/ Sodium Chloride) 100 mls @ 600 mls/hr IV ONCE VLADIMIR Stop: 03/22/22 23:59 Last Infusion: 03/22/22 13:09 Dose: Infused Pembrolizumab 200 mg/ Sodium (Chloride) 58 mls @ 116 mls/hr IV ONCE VLADIMIR Stop: 03/22/22 23:59 Last Infusion: 03/22/22 12:42 Dose: Infused Carboplatin 410 mg/ Sodium (Chloride) 291 mls @ 582 mls/hr IV ONCE VLADIMIR Stop: 03/22/22 23:59 Last Infusion: 03/22/22 13:40 Dose: Infused Home Medications Medication Instructions Recorded Confirmed Type albuterol sulfate 90 mcg/actuation 1 puff PO Q4H 11/14/21 03/22/22 History aerosol inhaler fluticasone 250 mcg-salmeterol 50 1 ea inhalation BID 11/14/21 03/22/22 History mcg/dose blistr powdr for inhalation (Advair Diskus) omeprazole 20 mg capsule,delayed 20 mg PO DAILY 11/14/21 03/22/22 History release lorazepam 0.5 mg tablet 0.5 mg PO BEDTIME 02/08/22 03/22/22 History Probiotic 1 cap PO DAILY 03/12/22 03/22/22 History acetaminophen 325 mg tablet 650 mg PO Q6H PRN Pain 03/12/22 03/22/22 History Allergies Allergy/AdvReac Type Severity Reaction Status Date / Time No Known Allergies Allergy Verified 03/22/22 10:24 Exam Vital signs: Vital Signs Temp 97.6 F 03/22/22 10:00 Pulse 85 03/22/22 10:00 Resp 19 03/22/22 10:00 BP 130/80 03/22/22 10:00 Pulse Ox 100 03/22/22 10:00 O2 Del Method 03/22/22 10:00 O2 Flow Rate 3 03/22/22 10:00 Intake & Output 03/21/22 03/22/22 03/22/22 18:59 06:59 18:59 Intake Total 549 / 549 Balance 549 / 549 Intake: Intake, IV Amount 549 / 549 CARBOplatin 410 mg In 0.9 % 291 / 291 Sodium Chloride 250 ml @ 582 mls/hr IV ONCE VLADIMIR Rx#: [id number] Ondansetron HCL/NS 16 mg In 50 50 / 50 ml @ 200 mls/hr IV ONCE VLADIMIR Rx# :[id number] PEMEtrexed disodium 500 mg 100 / 100 PEMEtrexed disodium 250 mg In 0 .9 % Sodium Chloride 70 ml @ 600 mls/hr IV ONCE VLADIMIR Rx#: [id number] Pembrolizumab 200 mg In 0.9 % 58 / 58 Sodium Chloride 50 ml @ 116 mls /hr IV ONCE VLADIMIR Rx#:[id number] dexAMETHasone sod phosphate/NS 50 / 50 12 mg In 50 ml @ 200 mls/hr IV ONCE VLADIMIR Rx#:[id number] Other: Weight 49 kg Weight in Grams 27744 Weight 49 kg BMI result Body Mass Index 20.4 - Constitutional Present: mild distress - Routine HEENT Exam Head: Present: normal inspection Eye: Present: normal appearance ENT: Present: mucous membranes moist - Routine Neck Exam Present: full ROM - Routine Respiratory Exam Present: CTAB - Routine Cardiovascular Exam Cardiovascular: Present: RRR, S1, S2 - Routine Abdominal Exam Present: soft, nontender - Routine Rectal Exam Patient deferred: digital exam - Routine Extremities Exam Present: nontender - Routine Back/Spine/Pelvis Exam Back/Spine: Present: full ROM - Routine Skin Exam Present: intact - Routine Neurological Exam Present: alert, oriented X3 - Routine Psychiatric Exam Present: normal affect Data - Labs CBC & Chem 7: 03/22/22 09:47 03/22/22 09:47 Assessment and Plan Patient Active problem list reviewed?: Yes (1) 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 She underwent a bronchoscopy under the care of Dr. Mehta, which revealed: Flexible bronchoscopy performed through laryngeal mask airway with airway placed for the procedure. Flexible bronchoscope advanced through the tracheobronchial tree with visualization of normal patent airways and bronchial mucosa on the left side. On the right-side right main bronchus and right upper lobe bronchus were noted to be in normal and patent With normal mucosa. Opening of the right bronchus intermedius was obstructed by edematous inflamed and easily friable with minimal contact mucosa. No biopsies were obtained secondary to significant oozing of the mucosa with a minimal contact. Brushing and lavage of the right bronchus intermedius a sent for cytology. Airway was observed with resolution of blood oozing. Patient was returned to PACU in stable condition. CT chest from 02/01: 1. No evidence of pulmonary emboli. 2. Right infrahilar mass causing complete collapse of the right middle and right lower lobes with narrowing of the right mainstem bronchus and encasement of the right superior pulmonary vein. Appearances are unchanged when compared to prior. 3. Unchanged small right pleural effusion. VTE: negative. PET SCAN: 1. Previously documented, clinically known large lobulated soft tissue mass centering around the intermediate bronchus associated with collapse consolidation of the right middle and right lower lobe of the lung currently measures approximately 7.2 x 6.0 cm, shows intense FDG avidity with SUV max of 7.4, highly suspicious for malignancy. Note is made of extension of the mass into the adjacent part of the mediastinum. Note is also made of absence of separate FDG avid ipsilateral or contralateral mediastinal or hilar lymphadenopathy. 2. Note is made of FDG avid ipsilateral [id number] size right-sided pleural effusion with SUV max of 3.1, suspicious for metastatic pleural involvement. 3. FDG avid approximately 1.1 cm right inferior axillary soft tissue nodule. A similar appearing additional subcutaneous soft tissue nodules are also noted within the left mid lateral abdominal wall and left superior gluteal region. In addition, 1.8 cm soft tissue nodule with intense FDG avidity is seen within the left mid lateral abdominal wall inseparable from the transversus abdominis musculature abutting the tip of the left iliac bone. All of these soft tissue lesions likely represent additional metastatic disease involving lymph nodes versus subcutaneous soft tissue metastatic nodules. These lesions can be biopsied using imaging guidance, for definitive tissue diagnosis, if clinically appropriate. 4. No FDG avid disease within the liver or adrenal glands. Incidental note is made of right adrenal non-FDG avid lipid rich adrenal adenoma. 5. Focal FDG avidity within the sigmoid colon with SUV max of 5.3, may represent inflammatory changes. Direct visualization/colonoscopy however may also be considered for further clarification, if not recently performed. 6. Asymmetric subtle focal increased FDG avidity in the region of the right-sided L2-3 facet joint, may represent arthritic changes with SUV max of 4.0. Follow-up imaging is recommended for further clarification. CEA: 2.80. l proceeded with MRI of the brain for staging purposes. This was negative for Mets. Waiting for the final results on pathology including the molecular testing. PDL1: 2%. Unfortunately the rest of block did not have enough tissue, to proceed with other molecular markers including EGFR, ALK, etc. Fortunately a 2nd block was available. That was sent for the above testing. Unfortunately it all came back negative. She had the pleurax catheter placed. That has helped with shortness of breath. She is here to get started on chemotherapy. Details of the regimen, including potential side effects of hypersensitivity reactions, nausea, vomiting, diarrhea, renal toxicity, pancytopenia, risk of infection, need for antibiotics and blood transfusion as well as growth factors, were all addressed with her. She understands and is willing to proceed. PLAN: She will start on Carboplatin/Alimta/pembrolizumab, today. Will restage her after completion of 3 cycles. Hopefully she will tolerate it well and have an excellent response. She is on oxygen supplementation at home. She will return in a week for labs and possible hydration. She will return in 3 weeks for a follow up. Thank you, CC: Dr. Banks. - Time Spent With Patient Time Spent with Patient (in minutes): 30
--- NOTE | 2022-03-23 12:11 | MHC.HEMONC ---
RX for Boost Plus faxed to [facility] as Ensure Plus Protein not covered per her insurance.
--- NOTE | 2022-03-27 11:10 | MHC.HEMONC ---
I informed pt daughter that nutritional supplements are not covered by Caterina's Medicare Plan. She understands and will purchase on her own.
--- NOTE | 2022-03-29 11:24 | MHC.HEMONC ---
Pt here for post chemo lab draw. Blood drawn by sausage canner-specimen to lab. Family with pt
[2022-03-29 11:26] LABS: MANUAL DIFF FLAG NO
[2022-03-29 11:30] LABS: Basophils Percent Auto 0.3 % (0-2); Eosinophils Absolute Auto 0.1 X10*3/uL (0.0-0.4); Eosinophils Percent Auto 2.5 % (0-4); Hemoglobin 12.8 g/dl (12.0-16.0); Imm Gran Abs Auto 0.02 X10*3/uL (0.00-0.03); Imm Gran Pct Auto 0.5 % (0.0-0.4); Lymphocytes Absolute Auto 1.2 X10*3/uL (1.2-4.9); Lymphocytes Percent Auto 31.6 % (20-40); Mean Corpuscular HGB Conc 33.7 g/dl (31.0-35.0); Mean Corpuscular Hemoglobin 28.1 pg (27.0-33.0); Mean Corpuscular Volume 83.3 fL (80.0-98.0); Mean Platelet Volume 8.8 fL (9.4-12.3); Monocytes Absolute Auto 0.3 X10*3/uL (0.1-1.2); Monocytes Percent Auto 6.8 % (2-11); Neutrophils Absolute Auto 2.1 x10*3/uL (2.0-8.3); Neutrophils Percent Auto 58.3 % (45-73); Platelet Count 246 X10*3/uL (160-400); Red Blood Count 4.56 X10*6/uL (4.20-5.50); Red Cell Distribution Width 12.2 % (11.0-16.0); White Blood Count 3.7 X10*3/uL (4.8-10.8)
[2022-03-29 12:08] LABS: Alanine Aminotransferase 22 U/L (0-31); Albumin Level 3.3 g/dL (3.5-5.0); Alkaline Phosphatase 67 U/L (39-117); Anion Gap 10 (12-20); Aspartate Amino Transferase 17 U/L (5-31); Blood Urea Nitrogen 11 mg/dL (9-16); Calcium 8.7 mg/dL (8.4-10.2); Carbon Dioxide 30 mmol/L (22-29); Chloride 91 mmol/L (96-108); Estimated Glomerular Filt Rate > 60; Glucose Random 157 mg/dL (60-115); Potassium 3.7 mmol/L (3.3-5.1); Sodium 127 mmol/L (135-145); Total Protein 5.7 g/dL (6.5-8.0)
[2022-03-29 12:29] LABS: Bilirubin Total 0.9 mg/dL (0.0-1.0)
--- NOTE | 2022-03-29 12:51 | MHC.HEMONC ---
Pt had Consult with Quarry Manager while in office today. She also had labs drawn. Quarry Manager to write comprehensive note and we will attempt to get supplements ordered for her.
[2022-04-05 14:22] LABS: MANUAL DIFF FLAG NO
[2022-04-05 14:28] LABS: Basophils Percent Auto 0.1 % (0-2); Eosinophils Percent Auto 0.3 % (0-4); Hematocrit 36.6 % (37.0-47.0); Hemoglobin 12.4 g/dl (12.0-16.0); Imm Gran Abs Auto 0.02 X10*3/uL (0.00-0.03); Imm Gran Pct Auto 0.3 % (0.0-0.4); Lymphocytes Absolute Auto 1.4 X10*3/uL (1.2-4.9); Lymphocytes Percent Auto 20.7 % (20-40); Mean Corpuscular HGB Conc 33.9 g/dl (31.0-35.0); Mean Corpuscular Hemoglobin 28.2 pg (27.0-33.0); Mean Corpuscular Volume 83.4 fL (80.0-98.0); Mean Platelet Volume 8.8 fL (9.4-12.3); Monocytes Absolute Auto 0.6 X10*3/uL (0.1-1.2); Monocytes Percent Auto 8.2 % (2-11); Neutrophils Absolute Auto 4.8 x10*3/uL (2.0-8.3); Neutrophils Percent Auto 70.4 % (45-73); Platelet Count 222 X10*3/uL (160-400); Red Blood Count 4.39 X10*6/uL (4.20-5.50); Red Cell Distribution Width 12.1 % (11.0-16.0); White Blood Count 6.9 X10*3/uL (4.8-10.8)
[2022-04-05 14:37] VITALS: BP 101/60; PULSE 95; RESP 14; TEMP 36.5; O2SAT 98
--- NOTE | 2022-04-05 14:43 | PM.HEMONCPN ---
Medical Summary - Medical Summary Date of Service: 04/05/22 Chief complaint: Follow-up for colon cancer. Medical Summary: DIAGNOSIS: NON-SMALL LUNG CARCINOMA. STAGE IV DISEASE. Axillary adenopathy With multiple subcutaneous nodules. CURRENT THERAPY: S/P Pleurax catheter placement. Started on Carboplatin/Alimta and pembrolizumab, chemotherapy 03/22. Interval History Interval history: Caterina Ojeda is a 76 year old lady, here for a follow-up visit. She started her chemo on 03/22. She was a bit tired last week. She has had nausea. Has been taking her pills. She took 1 this morning. When she arrived here she had a bout with vomiting. It was consistent of mostly phlegm. She had taken Ensure just before coming. That could been heavy for her. She has had the PleurX catheter draining half a Liter, Saturday and Saturday. She complains of shortness of breath, only upon major exertion. She feels less fatigued, this week. Denies fever chills or night sweats. She had noted headaches that come on on a daily basis. They have subsided. Denies chest pain. Her pain is under good control with MS Luis Felipe. She is sleeping well with the Ativan. She has had digestive problems. She gets heartburn nausea and dysphagia. Bowels are constipated. No gross blood in the stools. Appetite is low. She has lost 20% of her body weight since September. Denies any dysuria or hematuria. Denies any joint pains. She has history of anxiety. Recently she has been depressed. Denies skin rashes no pruritus. INTERIM HISTORY: She was in house between 03/12 and 03/16, Discharge summary: She is feeling better, S/P placement of the pleurax catheter. It drained around 900cc, on saturday and around the same yesterday. Will decrease the frequency, once the drainage lessens. Her daughter tested her O2 sat. She was standing brushing her teeth and it was 85%. After she sat in the wheelchair it was still 86-88%. She has pain in her left lower back. She has also noticed nodules in her left neck and under the left breast, over the past couple of weeks. PRESENTING HISTORY: She was referred by Dr. Banks on account of recent diagnosis of non-small cell lung carcinoma. She tells me she had onset of symptoms beginning of the year. She was in [place] then. She felt, as if she was coming down with Hay fever. She had a sore throat. In September she noted trouble breathing. She felt phlegm in the throat that was hard to cough up. She noted wheezing. She was prescribed an inhaler. A chest x-ray were done on 09/14, which revealed: -Coarsening interstitial markings of unknown chronicity. -No engorgement central vasculature to suggest superimposed interstitial edema. No overt effusion. She was then referred to Dr. Mehta. She underwent a bronchoscopy under the care of Dr. Mehta, which revealed: Flexible bronchoscopy performed through laryngeal mask airway with airway placed for the procedure. Flexible bronchoscope advanced through the tracheobronchial tree with visualization of normal patent airways and bronchial mucosa on the left side. On the right-side right main bronchus and right upper lobe bronchus were noted to be in normal and patent With normal mucosa. Opening of the right bronchus intermedius was obstructed by edematous inflamed and easily friable with minimal contact mucosa. No biopsies were obtained secondary to significant oozing of the mucosa with a minimal contact. Brushing and lavage of the right bronchus intermedius a sent for cytology. Airway was observed with resolution of blood oozing. Patient was returned to PACU in stable condition. CT chest from 02/01: 1. No evidence of pulmonary emboli. 2. Right infrahilar mass causing complete collapse of the right middle and right lower lobes with narrowing of the right mainstem bronchus and encasement of the right superior pulmonary vein. Appearances are unchanged when compared to prior. 3. Unchanged small right pleural effusion. VTE: negative. PET SCAN: 1. Previously documented, clinically known large lobulated soft tissue mass centering around the intermediate bronchus associated with collapse consolidation of the right middle and right lower lobe of the lung currently measures approximately 7.2 x 6.0 cm, shows intense FDG avidity with SUV max of 7.4, highly suspicious for malignancy. Note is made of extension of the mass into the adjacent part of the mediastinum. Note is also made of absence of separate FDG avid ipsilateral or contralateral mediastinal or hilar lymphadenopathy. 2. Note is made of FDG avid ipsilateral [id number] size right-sided pleural effusion with SUV max of 3.1, suspicious for metastatic pleural involvement. 3. FDG avid approximately 1.1 cm right inferior axillary soft tissue nodule. A similar appearing additional subcutaneous soft tissue nodules are also noted within the left mid lateral abdominal wall and left superior gluteal region. In addition, 1.8 cm soft tissue nodule with intense FDG avidity is seen within the left mid lateral abdominal wall inseparable from the transversus abdominis musculature abutting the tip of the left iliac bone. All of these soft tissue lesions likely represent additional metastatic disease involving lymph nodes versus subcutaneous soft tissue metastatic nodules. These lesions can be biopsied using imaging guidance, for definitive tissue diagnosis, if clinically appropriate. 4. No FDG avid disease within the liver or adrenal glands. Incidental note is made of right adrenal non-FDG avid lipid rich adrenal adenoma. 5. Focal FDG avidity within the sigmoid colon with SUV max of 5.3, may represent inflammatory changes. Direct visualization/colonoscopy however may also be considered for further clarification, if not recently performed. 6. Asymmetric subtle focal increased FDG avidity in the region of the right-sided L2-3 facet joint, may represent arthritic changes with SUV max of 4.0. Follow-up imaging is recommended for further clarification. PAST MEDICAL HISTORY: Seen in the ED on 02/05: Patient comes to the emergency room complaining of palpitations. Patient states that 4 days ago she was diagnosed with new onset atrial flutter, started on Eliquis 2.5 mg. Patient states that before she left the hospital, she was back in sinus rhythm. Today, patient was checking her blood pressure, and her heart rate was between 110 and 120. Patient occasionally feeling palpitations. No chest pain. 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 Patient's CTA scan for pulmonary embolism was -4 days ago. Since then, patient has been on Eliquis. Patient denies lower extremity pain or edema. FAMILY HISTORY: Brother had prostate cancer. A brother and a sister had bladder cancer. Maternal aunt had breast cancer. 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 She is . Has 3 children. She did smoke off and on. They would drink few times a week, went to happy hour. She was very active. They walked a lot. Played golf. Review of Systems - Constitutional Reports no additional constitutional complaints, Denies lack of energy, Denies weakness, Reports weight loss - Eyes Reports no additional eye complaints - ENT Reports no additional ear, nose, mouth, and throat complaints - Cardiovascular Reports no additional cardiovascular complaints - Respiratory Reports no additional respiratory complaints - Gastrointestinal Reports no additional gastrointestinal complaints - Genitourinary Reports no additional female genitourinary complaints - Musculoskeletal Reports no additional musculoskeletal complaints - Integumentary/Breasts Skin/Breast: Reports no additional skin complaints - Neurologic Reports no additional neurologic complaints, Reports dizziness, Reports weakness - Psychiatric Reports no additional psychiatric complaints - Endocrine Reports no additional endocrine complaints - Hematologic/Lymphatic Reports no additional hematologic/lymphatic complaints - Allergic/Immunologic Reports no additional allergic/immunologic complaints [facility] Medical History: Medical History (Last Reviewed 04/05/22 @ 14:35 by Scarlet Benitez CMA) Atrial fibrillation Onset Date: ~2021 GERD (gastroesophageal reflux disease) History of melanoma HTN (hypertension) Lung cancer Onset Date: ~2021 Osteoporosis Onset Date: ~2016 Functional capacity: wheelchair bound Patient : No Family History: Family History (Last Reviewed 04/05/22 @ 14:35 by Scarlet Benitez CMA) Mother Alzheimer disease Father Enlarged heart Brother Bladder cancer Prostate cancer Sister Bladder cancer Maternal Aunt Breast cancer Surgical History: Surgical History (Last Reviewed 04/05/22 @ 14:35 by Scarlet Benitez CMA) History of breast surgery History of bronchoscopy Onset Date: ~2021 History of cholecystectomy Onset Date: ~1999 History of colonoscopy History of hysterectomy Onset Date: ~1996 Social History: Social History (Last Reviewed 04/05/22 @ 14:35 by Scarlet Benitez CMA) Living Situation History: Household Members: Spouse Housing: House Are you a primary memory care program resident to a significant other at home: No Do you presently have visiting nurse or other home services: No Alcohol History Details: 1. How often do you have a drink containing alcohol?: b. Monthly or less 2. How many drinks containing alcohol do you have on a typical day when you are drinking?: a. 1 or 2 Tobacco History: Patient Tobacco Use Status: Former Tobacco user Tobacco use type: Cigarette Years Smoked: 10 +/- Smoke Quit Date: 1981 Second Hand Smoke Exposure: No Substance Use History: Use of substances other than those prescribed or required for medical reasons: No Domestic Abuse History: Have you been hit, kicked, punched, or otherwise hurt by someone within the past year? If so, by whom?: No Do you feel safe in your current relationship?: Yes Advance Directives: Advance Directives Date on File: 02/22/22 Homicidal Assessment: Do you have thoughts of harming others: None Do you have a plan to hurt others: No Plan Do you have the means to hurt others: No Nutrition Assessment: Recently lost weight without trying: Yes How much weight loss: 24-33 pounds Eating poorly because of decreased appetite: Yes Nutrition screen score: 6 Patient : No Occupation Assessmet: service: No Current occupational status: retired Oncology Screenings - ECOG Performance Status ECOG Performance Status: 2 Home Medications and Allergies Home Medications Medication Instructions Recorded Confirmed Type fluticasone 250 mcg-salmeterol 50 1 ea inhalation BID 11/14/21 04/05/22 History mcg/dose blistr powdr for inhalation (Advair Diskus) omeprazole 20 mg capsule,delayed 20 mg PO DAILY 11/14/21 04/05/22 History release lorazepam 0.5 mg tablet 0.5 mg PO BEDTIME 02/08/22 04/05/22 History Probiotic 1 cap PO DAILY 03/12/22 04/05/22 History acetaminophen 325 mg tablet 650 mg PO Q6H PRN Pain 03/12/22 04/05/22 History albuterol sulfate 1.25 mg/3 mL 1.25 mg inhalation Q4-6H PRN 04/05/22 04/05/22 History solution for nebulization Shortness Of Breath Or Wheezing Allergies Allergy/AdvReac Type Severity Reaction Status Date / Time No Known Allergies Allergy Verified 04/05/22 14:35 Exam Vital signs: Vital Signs Temp 97.7 F 04/05/22 14:37 Pulse 95 04/05/22 14:37 Resp 14 04/05/22 14:37 BP 101/60 04/05/22 14:37 Pulse Ox 98 04/05/22 14:37 O2 Del Method 04/05/22 14:37 O2 Flow Rate 2 04/05/22 14:37 Intake & Output 04/04/22 04/05/22 04/05/22 18:59 06:59 18:59 Other: Weight 48 kg [place] Weight in Grams [id number] Weight 48 kg BMI result Body Mass Index 20.0 - Constitutional Present: mild distress - Routine HEENT Exam Head: Present: normal inspection Eye: Present: normal appearance ENT: Present: mucous membranes moist - Routine Neck Exam Present: full ROM - Routine Respiratory Exam Present: CTAB - Routine Cardiovascular Exam Cardiovascular: Present: RRR, S1, S2 - Routine Abdominal Exam Present: soft, nontender - Routine Rectal Exam Patient deferred: digital exam - Routine Extremities Exam Present: nontender - Routine Back/Spine/Pelvis Exam Back/Spine: Present: full ROM - Routine Skin Exam Present: intact - Routine Neurological Exam Present: alert, oriented X3 - Routine Psychiatric Exam Present: normal affect Data - Labs CBC & Chem 7: 04/05/22 14:20 04/05/22 14:20 Assessment and Plan Patient Active problem list reviewed?: Yes (1) 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 She underwent a bronchoscopy under the care of Dr. Mehta, which revealed: Flexible bronchoscopy performed through laryngeal mask airway with airway placed for the procedure. Flexible bronchoscope advanced through the tracheobronchial tree with visualization of normal patent airways and bronchial mucosa on the left side. On the right-side right main bronchus and right upper lobe bronchus were noted to be in normal and patent With normal mucosa. Opening of the right bronchus intermedius was obstructed by edematous inflamed and easily friable with minimal contact mucosa. No biopsies were obtained secondary to significant oozing of the mucosa with a minimal contact. Brushing and lavage of the right bronchus intermedius a sent for cytology. Airway was observed with resolution of blood oozing. Patient was returned to PACU in stable condition. CT chest from 02/01: 1. No evidence of pulmonary emboli. 2. Right infrahilar mass causing complete collapse of the right middle and right lower lobes with narrowing of the right mainstem bronchus and encasement of the right superior pulmonary vein. Appearances are unchanged when compared to prior. 3. Unchanged small right pleural effusion. VTE: negative. PET SCAN: 1. Previously documented, clinically known large lobulated soft tissue mass centering around the intermediate bronchus associated with collapse consolidation of the right middle and right lower lobe of the lung currently measures approximately 7.2 x 6.0 cm, shows intense FDG avidity with SUV max of 7.4, highly suspicious for malignancy. Note is made of extension of the mass into the adjacent part of the mediastinum. Note is also made of absence of separate FDG avid ipsilateral or contralateral mediastinal or hilar lymphadenopathy. 2. Note is made of FDG avid ipsilateral [id number] size right-sided pleural effusion with SUV max of 3.1, suspicious for metastatic pleural involvement. 3. FDG avid approximately 1.1 cm right inferior axillary soft tissue nodule. A similar appearing additional subcutaneous soft tissue nodules are also noted within the left mid lateral abdominal wall and left superior gluteal region. In addition, 1.8 cm soft tissue nodule with intense FDG avidity is seen within the left mid lateral abdominal wall inseparable from the transversus abdominis musculature abutting the tip of the left iliac bone. All of these soft tissue lesions likely represent additional metastatic disease involving lymph nodes versus subcutaneous soft tissue metastatic nodules. These lesions can be biopsied using imaging guidance, for definitive tissue diagnosis, if clinically appropriate. 4. No FDG avid disease within the liver or adrenal glands. Incidental note is made of right adrenal non-FDG avid lipid rich adrenal adenoma. 5. Focal FDG avidity within the sigmoid colon with SUV max of 5.3, may represent inflammatory changes. Direct visualization/colonoscopy however may also be considered for further clarification, if not recently performed. 6. Asymmetric subtle focal increased FDG avidity in the region of the right-sided L2-3 facet joint, may represent arthritic changes with SUV max of 4.0. Follow-up imaging is recommended for further clarification. CEA: 2.80. l proceeded with MRI of the brain for staging purposes. This was negative for Mets. Waiting for the final results on pathology including the molecular testing. PDL1: 2%. Unfortunately the rest of block did not have enough tissue, to proceed with other molecular markers including EGFR, ALK, etc. Fortunately a 2nd block was available. That was sent for the above testing. Unfortunately it all came back negative. She had the pleurax catheter placed. That has helped with shortness of breath. She is here to get started on chemotherapy. Details of the regimen, including potential side effects of hypersensitivity reactions, nausea, vomiting, diarrhea, renal toxicity, pancytopenia, risk of infection, need for antibiotics and blood transfusion as well as growth factors, were all addressed with her. She understood and was willing to proceed. She started on Carboplatin/Alimta/pembrolizumab, 03/22. Overall she is feeling much better. Breathing is good. The PleurX catheter is draining 500 Mls. 3 times a week. She had a bout with vomiting. Was given Zofran with good control. PLAN: She will return next week for cycle 2. Will restage her after completion of 3 cycles. Hopefully she will continue to tolerate it well and have an excellent response. She is on oxygen supplementation at home. After the chemo, she can return in a week for labs and possible hydration. She will return in 4 weeks for a follow up. She can get the bivalent COVID vaccine later in the week. Thank you, CC: Dr. Banks. - Time Spent With Patient Time Spent with Patient (in minutes): 30
[2022-04-05 14:45] LABS: Alanine Aminotransferase 13 U/L (0-31); Alkaline Phosphatase 73 U/L (39-117); Anion Gap 13 (12-20); Aspartate Amino Transferase 11 U/L (5-31); Bilirubin Total 0.4 mg/dL (0.0-1.0); Blood Urea Nitrogen 16 mg/dL (9-16); Calcium 8.4 mg/dL (8.4-10.2); Carbon Dioxide 30 mmol/L (22-29); Chloride 91 mmol/L (96-108); Creatinine Clr Calc Pharmacy 59.2; Estimated Glomerular Filt Rate > 60; Glucose Random 157 mg/dL (60-115); Potassium 4.1 mmol/L (3.3-5.1); Sodium 130 mmol/L (135-145); Total Protein 5.3 g/dL (6.5-8.0)
[2022-04-05] MEDS: Ondansetron ODT 8 MG TAB.RAPDIS TRANSLINGU (14:53)
--- NOTE | 2022-04-05 16:15 | MHC.HEMONC ---
Pt here for post chemo lab draw and follow up with Dr Veras. Pt actively gagging and nauseated. Dr Veras notified. Zofran given. Labs drawn by quality assurance monitor chassis-specimen to lab. Seen by Dr Veras. Follow up appointment scheduled. Next chemotherapy scheduled for next week.
--- NOTE | 2022-04-05 16:41 | MHC.HEMONCMA ---
Pt was in for follow up. Clinical summary reviewed and updated, VSS. Labs were drawn. Pt to return in 1 month.
--- NOTE | 2022-04-10 08:29 | MHC.HEMONC ---
Updated by pt son that his dad was dx with flu over and he called Dr Veras to see if his mom (patient of Dr Veras) should get prophylaxis. Dr Veras did order it. Pt currently has no sx. He will call with any changes.
[2022-04-12 09:38] VITALS: BP 96/64; PULSE 86; RESP 18; TEMP 36.2; O2SAT 100; BMI 19.4
[2022-04-12 09:47] LABS: MANUAL DIFF FLAG NO
[2022-04-12 09:49] LABS: Basophils Percent Auto 0.1 % (0-2); Hematocrit 36.7 % (37.0-47.0); Hemoglobin 12.5 g/dl (12.0-16.0); Imm Gran Abs Auto 0.05 X10*3/uL (0.00-0.03); Imm Gran Pct Auto 0.6 % (0.0-0.4); Lymphocytes Absolute Auto 1.1 X10*3/uL (1.2-4.9); Lymphocytes Percent Auto 12.7 % (20-40); Mean Corpuscular HGB Conc 34.1 g/dl (31.0-35.0); Mean Corpuscular Hemoglobin 28.3 pg (27.0-33.0); Mean Corpuscular Volume 83.2 fL (80.0-98.0); Mean Platelet Volume 8.5 fL (9.4-12.3); Monocytes Absolute Auto 0.8 X10*3/uL (0.1-1.2); Monocytes Percent Auto 10.1 % (2-11); Neutrophils Absolute Auto 6.3 x10*3/uL (2.0-8.3); Neutrophils Percent Auto 76.5 % (45-73); Platelet Count 650 X10*3/uL (160-400); Red Blood Count 4.41 X10*6/uL (4.20-5.50); Red Cell Distribution Width 13.1 % (11.0-16.0); White Blood Count 8.3 X10*3/uL (4.8-10.8)
[2022-04-12 10:03] LABS: Alanine Aminotransferase 13 U/L (0-31); Albumin Level 3.3 g/dL (3.5-5.0); Alkaline Phosphatase 81 U/L (39-117); Anion Gap 9 (12-20); Aspartate Amino Transferase 10 U/L (5-31); Bilirubin Total 0.4 mg/dL (0.0-1.0); Blood Urea Nitrogen 15 mg/dL (9-16); Calcium 8.8 mg/dL (8.4-10.2); Carbon Dioxide 31 mmol/L (22-29); Chloride 93 mmol/L (96-108); Creatinine Clr Calc Pharmacy 51.6; Estimated Glomerular Filt Rate > 60; Glucose Random 187 mg/dL (60-115); Potassium 4.1 mmol/L (3.3-5.1); Sodium 129 mmol/L (135-145); Total Protein 5.6 g/dL (6.5-8.0)
[2022-04-12] MEDS: diphenhydrAMINE HCL 50 MG/ML VIAL 25 MG IVPUSH (10:46)
[2022-04-12] MEDS: Acetaminophen 325 MG TABLET 650 MG PO (10:46)
[2022-04-12] MEDS: dexAMETHasone sod phosphate/NS 12 MG/50 ML PIGGYBACK 200 MG IV (10:47)
[2022-04-12] MEDS: CARBOplatin 410 MG in 0.9 % Sodium Chloride 250 ML 582 MG IV (12:48)
--- NOTE | 2022-04-12 15:22 | MHC.HEMONC ---
Pt here for C2D1 Pemetrexed/Pembrolizumab/Carboplatin. Labs drawn by entry level assistant manager-specimen to lab. Pt states she feels better than a few weeks ago. Pt states she takes zofran as a nausea preventive, continues to take ativan for anxiety. States has a cough with clear to white sputum, has occasional constipation which she manages with prune juice and suppositories as needed, states her pain level is a zero today, slight pedal edema bilaterally continues with fatigue. Daughter with patient. Continues on Tamiflu as a preventive - has influenza. Lab results reviewed-okay to receive treatment today. #24 angio inserted in right hand with blood return noted. Pre medicated with tylenol, decadron, benadryl, zofran. Pemetrexed/Pembrolizumab/Carboplatine given as ordered-tolerated well. Next appointment scheduled, pt to return next week for lab draw. Discharge packet given. Peripheral IV removed-no edema or redness at site. Pt instructed to call department with any side effects or concerns-verbalizes understanding.
[2022-04-13 07:10] LABS: HBS Num1 24.37 mIU/mL (0-7.99); HBc Num1 0.59 S/CO (0.00-0.79); HBsAGNum1 0.31 S/CO (0.00-0.99); Hepatitis B Core Antibody Nonreactive (Nonreactive); Hepatitis B Surface Antigen Negative (Negative); ~Hepatitis B Surface Antibody REACTIVE (Nonreactive)
--- NOTE | 2022-04-17 12:48 | MHC.HEMONCMA ---
[facility] called triage line to speak with nurse, patient is very weak, nausea, body aches, high pulse of 122, in 24 hr period only drank 3/4 of ensure drink for 3 days now. Spoke with Nurse and Dr. Veras and advised to call for ambulance due to them being unable to get her up due to weakness and go to ED. He understands and I called back 15 min after and they were waiting for ambulance to come now. Dr. Veras advised.
--- NOTE | 2022-04-18 10:21 | MHC.HEMONC ---
I spoke with pt daughter, Lisandra on the telephone. Her mom is in ER with Influenza. She said that she may be discharged to a Rehab. I told her I would go to see her in ER. Daughter in unable to go there due to illness but her father was in there with her. Caterina is on O2 via n/c and appears very weak with increased RR. I spoke to them about need to hold off treatment due to her symptoms and weakened state. Caterina appears to want to just be kept comfortable but her wanted her to get stronger . I told them that I would advise Dr Veras tomorrow and that they could call or stop by our office at any time. I called dtr back and told her that currently her mom is a full code and that she appeared as though hospice care should be a consideration. She will discuss with her parents and UZMA RN.
== END 2022-04-23 | disposition home or self-care (01) ==
LOC: HO.ONC 09:30
PROVIDERS: PCP Internal Medicine; Visit Provider Internal Medicine Medical Oncology
DX: Z51.11 Encounter for antineoplastic chemotherapy (principal); C34.91 Malignant neoplasm of unspecified part of right bronchus or lung; C79.89 Secondary malignant neoplasm of other specified sites; J90 Pleural effusion, not elsewhere classified; I26.99 Other pulmonary embolism without acute cor pulmonale; I48.91 Unspecified atrial fibrillation; Z79.01 Long term (current) use of anticoagulants; Z99.81 Dependence on supplemental oxygen
CPT/HCPCS: 36415; 80053; 82378; 84443; 85025; 86704; 86706; 87340; 96375; 96411; 96413; 96415; 96417; 99204; 99214; J1100; J1200; J2405; J9045; J9271; J9305

== ENCOUNTER 2022-04-17 12:43 | Emergency (ER) | payer MEDICARE, SELFPAY ==
--- NOTE | ~2022-04-17 | XR_ITS ---
EXAMINATION: XR CHEST CLINICAL INFORMATION: Weakness and shortness of breath. COMPARISON: 03/12/2022 TECHNIQUE: 2 views of the chest were obtained. FINDINGS: There appears to be chronic mild subpleural reticular opacity in the periphery of mid to lower lung zones. Moderate right pleural effusion is slightly smaller compared to 03/12/2022. The tip of the pleural drainage catheter projects over the right apex. No pneumothorax. There appears to be linear opacity of likely atelectasis in retrocardiac area of left lower lobe.. No overt airspace disease. Cardiac silhouette is normal in size but partially obscured by the right-sided pleural effusion. Nonaggressive chondroid calcification of lateral right humeral metaphysis is consistent with enchondroma. Mild hyperkyphosis of the degenerated thoracic spine. Cholecystectomy clips are present in the right upper abdomen. XR/XR chest 2V IMPRESSION: * Chronic mild interstitial disease is suspected. * Moderate right pleural effusion is slightly smaller compared to 03/12/2022. * No evidence of acute pulmonary edema.
--- NOTE | 2022-04-17 12:55 | ECG_ITS ---
Test Reason : weakness Blood Pressure : / mmHG Vent. Rate : 121 BPM Atrial Rate : 000 BPM P-R Int : 000 ms QRS Dur : 062 ms QT Int : 272 ms P-R-T Axes : 000 -01 268 degrees QTc Int : 386 ms Atrial fibrillation with rapid ventricular response Septal infarct (cited on or before 17-APR-2022) ST & T wave abnormality, consider inferior ischemia ST & T wave abnormality, consider anterolateral ischemia Abnormal ECG When compared with ECG of 12-MAR-2022 15:16, Atrial fibrillation has replaced Sinus rhythm Vent. rate has increased BY 43 BPM Referred By: Deidra Bernal Electronically Signed By:LUDY PEREZ
--- NOTE | 2022-04-17 12:57 | ED_ITS ---
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 Veras presenting today with complaints of generalized weakness, nausea, poor p.o. intake over the last 2 days. Per patient her and daughter have the flu at home. She has not tested for the flu. She did take a course of Tamiflu which she finished prophylactically. Patient reports she has nausea medication at home but she does not know the name of it. She has taken this but continues to have nausea and poor p.o. intake. She is worried that she may be dehydrated. She is on supplemental oxygen at baseline. She denies any increased need for oxygen, shortness of breath, chest pain, vomiting, diarrhea, fevers, headache, neck pain or stiffness, skin rash. Patient last had chemotherapy last . She is currently on Carboplatin/Alimta and pembrolizumab Related Data Home Medications Medication Instructions Recorded Confirmed fluticasone 250 mcg-salmeterol 50 1 ea inhalation BID 11/14/21 04/05/22 mcg/dose blistr powdr for inhalation (Advair Diskus) omeprazole 20 mg capsule,delayed 20 mg PO DAILY 11/14/21 04/05/22 release lorazepam 0.5 mg tablet 0.5 mg PO BEDTIME 02/08/22 04/05/22 Probiotic 1 cap PO DAILY 03/12/22 04/05/22 acetaminophen 325 mg tablet 650 mg PO Q6H PRN Pain 03/12/22 04/05/22 albuterol sulfate 1.25 mg/3 mL 1.25 mg inhalation Q4-6H PRN 04/05/22 04/05/22 solution for nebulization Shortness Of Breath Or Wheezing Previous Rx's Medication Instructions Recorded apixaban 2.5 mg tablet (Eliquis) 2.5 mg PO BID atrial fibrilation 03/02/22 #60 tabs metoprolol succinate 25 mg 25 mg PO DAILY #30 tabs 03/02/22 tablet,extended release 24 hr (Toprol XL) oxycodone 5 mg tablet 5 mg PO Q8H PRN Breakthrough Pain, 03/07/22 Mild #30 tabs folic acid 1 mg tablet 1 mg PO DAILY #30 tabs 03/16/22 lisinopril 20 mg tablet 20 mg PO DAILY #30 tabs 03/16/22 ondansetron 8 mg disintegrating 8 mg PO Q8H #50 tabs 03/16/22 tablet oxycodone 5 mg tablet 5 mg PO Q4H PRN Breakthrough Pain, 03/20/22 Moderate #50 tabs oxycodone 5 mg tablet 5 mg PO Q6H PRN Breakthrough Pain, 03/20/22 Moderate #50 tabs dexamethasone 4 mg tablet 4 mg PO BID #100 tabs 03/22/22 morphine 30 mg tablet,extended 30 mg PO Q12H #60 tabs 03/22/22 release (MS Contin) Allergies Allergy/AdvReac Type Severity Reaction Status Date / Time No Known Allergies Allergy Verified 04/05/22 14:35 Review of Systems Review of Systems: Yes all other systems are reviewed and are negative Constitutional: Constitutional: Reports no additional constitutional complaints, Denies body ache(s), Denies chills, Denies fever(s), Denies headache(s), Reports poor appetite and Reports weakness Eyes: Eyes: Reports no additional eye complaints and Denies change in vision ENT: Reports system reviewed and no additional complaints, except as documented, Denies dizziness, Denies headache(s), Denies nasal congestion, Denies nasal discharge and Denies neck pain Cardiovascular: Cardiovascular: Reports no additional cardiovascular complaints, Denies chest pain, Denies leg edema and Denies dyspnea Respiratory: Respiratory: Reports no additional respiratory complaints, Denies cough and Denies dyspnea Gastrointestinal: Gastrointestinal: Reports no additional gastrointestinal complaints, Denies abdominal pain, Denies diarrhea, Reports nausea and Denies vomiting Genitourinary: Genitourinary: Reports no additional female genitourinary complaints and Denies urinary incontinence Musculoskeletal: Musculoskeletal: Reports no additional musculoskeletal co mplaints, Denies back pain, Denies arthralgias, Denies joint swelling, Denies neck pain, Denies numbness and Denies tingling Integumentary/Breasts: Skin/Breast: Reports system reviewed and no additional complaints, except as docu and Denies rash Neurologic: Reports system reviewed and no additional complaints, except as documented, Denies Abnormal speech present, Denies dizziness, Denies headache(s), Denies numbness, Denies tingling and Reports weakness PMFSH Past Medical History Attestation statement: The following information was validated with the patient. Source: old records reviewed and nursing notes reviewed Medical History Atrial fibrillation (~2021) GERD (gastroesophageal reflux disease) History of melanoma HTN (hypertension) Lung cancer (~2021) Osteoporosis (~2016) Surgical History History of breast surgery History of bronchoscopy (~2021) History of cholecystectomy (~1999) History of colonoscopy History of hysterectomy (~1996) Family History Family History Mother Alzheimer disease Father Enlarged heart Brother Bladder cancer Prostate cancer Sister Bladder cancer Maternal Aunt Breast cancer Social History Social History Household Members: Spouse Housing: House Are you a primary progressive care unit registered nurse to a significant other at home: No Do you presently have visiting nurse or other home services: No Alcohol intake: never Patient Tobacco Use Status: Former Tobacco user Quit Date: 1981 Tobacco use type: Cigarette Years Smoked: 10 +/- Smoked in Last 30 Days: No Second Hand Smoke Exposure: No Use of substances other than those prescribed or required for medical reasons: No Advance Directives: Yes Advance Directives on File: Yes Advance Directives Date on File: 02/22/22 service: No Current occupational status: retired Physical Exam Vital Signs: Vital Signs: Last Vital Signs Temp 97.6 F 04/17/22 17:39 Pulse 93 04/17/22 17:39 Resp 24 H 04/17/22 17:39 BP 125/83 04/17/22 17:39 Pulse Ox 98 04/17/22 17:39 O2 Del Method 04/17/22 17:39 O2 Flow Rate 2 04/17/22 16:00 Oxygen Flow Rate 2 04/17/22 13:28 BMI result Body Mass Index 19.5 Const: Other: Frail appearing General: alert Orientation/consciousness: patient oriented x3 Limitations: no limitations HEENT: Other: Tacky MM Head: Yes normal to inspection Ears: hearing grossly normal bilaterally and TM's normal bilaterally General nose exam: Normal external nose present Face and sinus: Yes normal facial exam Mouth: Normal oral and palatal mucosa present Eyes: General: appearance normal, both eyes and all related structures Pupils: Equal, round and reactive pupils present Neck: Neck: Yes normal visual inspection, Yes full ROM and Yes no lymphadenopathy Chest: Chest palpation & inspection: normal inspection of the chest Resp: Effort & Inspection: normal respiratory effort Auscultation: clear to auscultation bilaterally Cardio: Rate: tachycardic Rhythm: regular rhythm Peripheral pulses: Peripheral pulses 2+ throughout GI: Inspection: Yes normal to inspection Palpation (GI): Soft to palpation and nontender Auscultation: normal bowel sounds Back/Spine/Pelvis: Thoracic/Lumbar Spine: thoracic and lumbar spine normal to inspection Skin: General skin exam: no rashes or lesions noted Neuro: General: patient oriented x3, no focal motor deficits and normal sensation to monofilament Cranial nerves: Yes Equal, round and reactive pupils present Cognition (Neuro): normal cognition Speech: No Abnormal speech present Gait exam (Neuro): Normal gait present Motor exam (neuro): 5/5 motor strength present throughout Extrem: General: Yes normal to inspection, Yes no pedal edema and Yes no calf tenderness Course Course Course Narrative: Labs show hyponatremia which appears chronic, thrombocytosis chronic. Mild hyp ochloremia. Will give 500 mL of gentle hydration. Additional testing pending Reevaluation(s) Reevaluation #1: Flu screen is positive. Chest x-ray shows a chronic right pleural effusion which is unchanged from previous. Oxygen is at baseline. Patient went tachycardia 115-128 AFib on the youth nutritional monitor. This is likely secondary to decreased intake. Patient did take her medications this morning. Will give low-dose Lopressor. Patient to have repeat chemistry prior to receiving additional fluids as she is mildly hyponatremic. Patient has already taken around of Tamiflu. Family concerned that patient is very nauseous and not drinking or eating much. They are concerned about her going home. She does have home care nurses that come in 3 times a week to help with her care. She has had no vomiting. Will give repeat dose of nausea medication and reassess. We did discuss that due to recent chemotherapy it would be best for patient to be home to decrease her risk of exposure to other communicable diseases. Reevaluation #2: Repeat sodium is 131 which is back to patient's baseline. Chloride is improved as well. Patient is tolerating sips of water. Heart rate now 90. Family feels patient cannot safely go home as she is too weak. They feel like she needs short-term rehab. Therefore patient will be held in the emergency room overnight for physical therapy and case management evaluation. Placed in physician observation pending disposition Medications Administered Discontinued Medications Generic Name Dose Route Start Last Admin Trade Name [place] PRN Reason Stop Dose Admin Sodium Chloride 500 mls @ 999 mls/hr 04/17/22 14:23 04/17/22 16:01 Ns IV 04/17/22 14:53 Infused .Q31M STA Infusion Promethazine HCl 6.25 mg/ 50.25 mls @ 201 mls/hr 04/17/22 15:26 04/17/22 16:0 2 Sodium Chloride IV 04/17/22 15:27 201 mls/hr ONCE ONE Administration Metoprolol Tartrate 5 mg 04/17/22 16:13 04/17/22 16:16 Metoprolol Tartrate 5 Mg/5 Ml Vial IVPUSH 04/17/22 16:14 5 mg ONCE ONE Administration Ondansetron HCl 4 mg 04/17/22 12:55 04/17/22 14:29 Ondansetron Hcl 4 Mg/2 Ml Vial IVPUSH 04/17/22 12:56 4 mg ONCE ONE Administration Medical Decision Making Medical Decision Making [facility] Narrative: 76-year-old female recent diagnosis of lung cancer with Mets currently receiving chemotherapy with recent exposure to the flu here with complaints of nausea, poor p.o. intake, generalized weakness On arrival patient frail appearing, tacky mucous membranes. Will need labs, EKG, chest x-ray, flu and COVID screen. Differential Diagnosis Differential Diagnoses: The differential diagnosis associated with the presentation includes Dehydration, electrolyte abnormality, ACS, pneumonia, UTI Consult Healthcare Provider Management of the patient was discussed with: Fortune Cookie Maker Spoke to patient's oncologist Dr Veras Lab Data [facility] Lab Attestation statement: I reviewed the patient's lab results. Result Diagrams: 04/17/22 13:27 04/17/22 17:11 Labs: Lab Results 04/17/22 04/17/22 04/17/22 Range/Units 13:25 13:27 13:27 WBC 9.9 (4.8-10.8) X10*3/uL RBC 5.07 (4.20-5.50) X10*6/uL Hgb 14.2 (12.0-16.0) g/dl Hct 41.7 (37.0-47.0) % MCV 82.2 (80.0-98.0) fL MCH 28.0 (27.0-33.0) pg MCHC 34.1 (31.0-35.0) g/dl RDW 13.2 (11.0-16.0) % Plt Count 423 H D (160-400) X10*3/uL MPV 9.3 L (9.4-12.3) fL Immature Gran % (Auto) 0.5 H (0.0-0.4) % Neut % (Auto) 93.7 H (45-73) % Lymph % (Auto) 5.1 L (20-40) % Ross % (Auto) 0.5 L (2-11) % Eos % (Auto) 0.1 (0-4) % Baso % (Auto) 0.1 (0-2) % Lymph # (Auto) 0.5 L (1.2-4.9) X10*3/uL Ross # (Auto) 0.1 (0.1-1.2) X10*3/uL Eos # (Auto) 0.0 (0.0-0.4) X10*3/uL Baso # (Auto) 0.0 (0.0-0.2) X10*3/uL Abs Immat Gran (auto) 0.05 H (0.00-0.03) X10*3/uL Absolute Neuts (auto) 9.3 H (2.0-8.3) x10*3/uL Absolute Nucleated RBC 0.000 (0.0-0.012) X10*3/uL Nucleated RBC % (auto) 0.0 (0.0-0.2) /100WBC Smear Tech's Comments VERIFIED PT (10.0-13.1) SEC INR (0.9-1.1) Sodium 127 L (135-145) mmol/L Potassium 4.3 (3.3-5.1) mmol/L Chloride 89 L (96-108) mmol/L Carbon Dioxide 28 (22-29) mmol/L Anion Gap 14 (12-20) BUN 19 H (9-16) mg/dL Creatinine 0.50 (0.5-1.4) mg/dL Estim Creat Clear Calc 66.4 Estimated GFR > 60 Random Glucose 147 H (60-115) mg/dL Lactic Acid 1.2 (0.5-2.0) mmol/L Calcium 8.7 (8.4-10.2) mg/dL Magnesium 1.6 (1.6-2.6) mg/dL Total Bilirubin 0.9 (0.0-1.0) mg/dL Direct Bilirubin 0.2 (0.0-0.5) mg/dL AST 22 (5-31) U/L ALT 16 (0-31) U/L Alkaline Phosphatase 84 (39-117) U/L Troponin I High Sens (<3.5-17.0) ng/L Total Protein 6.1 L (6.5-8.0) g/dL Albumin 3.3 L (3.5-5.0) g/dL Influenza Type A (PCR) (Negative) Influenza Type B (PCR) (Negative) RSV RNA Qual (PCR) (Negative) SARS-CoV-2 RNA (RT-PCR) (Negative) 04/17/22 04/17/22 04/17/22 Range/Units 13:27 13:29 13:44 WBC (4.8-10.8) X10*3/uL RBC (4.20-5.50) X10*6/uL Hgb (12.0-16.0) g/dl Hct (37.0-47.0) % MCV (80.0-98.0) fL MCH (27.0-33.0) pg MCHC (31.0-35.0) g/dl RDW (11.0-16.0) % Plt Count (160-400) X10*3/uL MPV (9.4-12.3) fL Immature Gran % (Auto) (0.0-0.4) % Neut % (Auto) (45-73) % Lymph % (Auto) (20-40) % Ross % (Auto) (2-11) % Eos % (Auto) (0-4) % Baso % (Auto) (0-2) % Lymph # (Auto) (1.2-4.9) X10*3/uL Ross # (Auto) (0.1-1.2) X10*3/uL Eos # (Auto) (0.0-0.4) X10*3/uL Baso # (Auto) (0.0-0.2) X10*3/uL Abs Immat Gran (auto) (0.00-0.03) X10*3/uL Absolute Neuts (auto) (2.0-8.3) x10*3/uL Absolute Nucleated RBC (0.0-0.012) X10*3/uL Nucleated RBC % (auto) (0.0-0.2) /100WBC Smear Tech's Comments PT 13.2 H (10.0-13.1) SEC INR 1.1 (0.9-1.1) Sodium (135-145) mmol/L Potassium (3.3-5.1) mmol/L Chloride (96-108) mmol/L Carbon Dioxide (22-29) mmol/L Anion Gap (12-20) BUN (9-16) mg/dL Creatinine (0.5-1.4) mg/dL Estim Creat Clear Calc Estimated GFR Random Glucose (60-115) mg/dL Lactic Acid (0.5-2.0) mmol/L Calcium (8.4-10.2) mg/dL Magnesium (1.6-2.6) mg/dL Total Bilirubin (0.0-1.0) mg/dL Direct Bilirubin (0.0-0.5) mg/dL AST (5-31) U/L ALT (0-31) U/L Alkaline Phosphatase (39-117) U/L Troponin I High Sens 13.9 D (<3.5-17.0) ng/L Total Protein (6.5-8.0) g/dL Albumin (3.5-5.0) g/dL Influenza Type A (PCR) POSITIVE A (Negative) Influenza Type B (PCR) NEGATIVE (Negative) RSV RNA Qual (PCR) NEGATIVE (Negative) SARS-CoV-2 RNA (RT-PCR) NEGATIVE (Negative) 01/03/23 Range/Units 17:11 WBC (4.8-10.8) X10*3/uL RBC (4.20-5.50) X10*6/uL Hgb (12.0-16.0) g/dl Hct (37.0-47.0) % MCV (80.0-98.0) fL MCH (27.0-33.0) pg MCHC (31.0-35.0) g/dl RDW (11.0-16.0) % Plt Count (160-400) X10*3/uL MPV (9.4-12.3) fL Immature Gran % (Auto) (0.0-0.4) % Neut % (Auto) (45-73) % Lymph % (Auto) (20-40) % Ross % (Auto) (2-11) % Eos % (Auto) (0-4) % Baso % (Auto) (0-2) % Lymph # (Auto) (1.2-4.9) X10*3/uL Ross # (Auto) (0.1-1.2) X10*3/uL Eos # (Auto) (0.0-0.4) X10*3/uL Baso # (Auto) (0.0-0.2) X10*3/uL Abs Immat Gran (auto) (0.00-0.03) X10*3/uL Absolute Neuts (auto) (2.0-8.3) x10*3/uL Absolute Nucleated RBC (0.0-0.012) X10*3/uL Nucleated RBC % (auto) (0.0-0.2) /100WBC Smear Tech's Comments PT (10.0-13.1) SEC INR (0.9-1.1) Sodium 131 L (135-145) mmol/L Potassium 4.5 (3.3-5.1) mmol/L Chloride 92 L (96-108) mmol/L Carbon Dioxide 28 (22-29) mmol/L Anion Gap 16 (12-20) BUN 19 H (9-16) mg/dL Creatinine 0.50 (0.5-1.4) mg/dL Estim Creat Clear Calc 66.4 Estimated GFR > 60 Random Glucose 137 H (60-115) mg/dL Lactic Acid (0.5-2.0) mmol/L Calcium 8.3 L (8.4-10.2) mg/dL Magnesium (1.6-2.6) mg/dL Total Bilirubin (0.0-1.0) mg/dL Direct Bilirubin (0.0-0.5) mg/dL AST (5-31) U/L ALT (0-31) U/L Alkaline Phosphatase (39-117) U/L Troponin I High Sens (<3.5-17.0) ng/L Total Protein (6.5-8.0) g/dL Albumin (3.5-5.0) g/dL Influenza Type A (PCR) (Negative) Influenza Type B (PCR) (Negative) RSV RNA Qual (PCR) (Negative) SARS-CoV-2 RNA (RT-PCR) (Negative) Independent Interpretation I performed an independent interpretation of an: EKG and Plain X-Ray (I ind ependently reviewed the chest x-ray which shows no pneumonia, chronic right pleural effusion) Interpretation: Take independently reviewed the EKG which shows AFib with RVR with rate of 121, normal QRS, normal QT, ST depressions leads V4 through V6 Radiology Impression Discussion of test interpretation with radiology: I have reviewed the radiologist's reading. Radiologist Impression: IMPRESSION: *? Chronic mild interstitial disease is suspected. *? Moderate right pleural effusion is slightly smaller compared to 03/12/2022. *? No evidence of acute pulmonary edema. Independent Historian Clinical information obtained from an independent historian. History obtained from or confirmed by: EMS Discharge Plan Discharge Clinical Impression: Influenza A Patient Disposition: Still a Patient Instructions: Influenza (ED) Prescriptions: No Action Eliquis 2.5 mg tablet 2.5 mg PO BID Qty: 60 5RF metoprolol succinate [Toprol XL] 25 mg tablet extended release 24 hr 25 mg PO DAILY Qty: 30 5RF oxycodone 5 mg Tablet 5 mg PO Q8H PRN (Reason: Breakthrough Pain, Mild) Qty: 30 0RF Rx Instructions: Partial Fill upon patient request. ondansetron 8 mg Tablet,Disintegrating 8 mg PO Q8H Qty: 50 5RF oxycodone 5 mg Tablet 5 mg PO Q6H PRN (Reason: Breakthrough Pain, Moderate) Qty: 50 0RF Rx Instructions: Partial Fill upon patient request. oxycodone 5 mg Tablet 5 mg PO Q4H PRN (Reason: Breakthrough Pain, Moderate) Qty: 50 0RF Rx Instructions: Partial Fill upon patient request. dexamethasone 4 mg Tablet 4 mg PO BID Qty: 100 3RF Rx Instructions: Take 4 mg BID the day before chemotherapy and the morning of. morphine [MS Contin] 30 mg Tablet Extended Release 30 mg PO Q12H Qty: 60 0RF Rx Instructions: Partial Fill upon patient request. albuterol sulfate 1.25 mg/3 mL Solution For Nebulization 1.25 mg INHALATION Q4-6H PRN (Reason: Shortness Of Breath Or Wheezing) acetaminophen 325 mg Tablet 650 mg PO Q6H PRN (Reason: Pain) Probiotic 1 cap PO DAILY folic acid 1 mg Tablet 1 mg PO DAILY Qty: 30 4RF lisinopril 20 mg tablet 20 mg PO DAILY Qty: 30 0RF omeprazole 20 mg capsule,delayed release(DR/EC) 20 mg PO DAILY fluticasone propion-salmeterol [Advair Diskus] 250-50 mcg/dose blister with device 1 ea inhalation BID lorazepam 0.5 mg tablet 0.5 mg PO BEDTIME
[2022-04-17 13:28] VITALS: BP 118/87; PULSE 126; RESP 22; TEMP 37.4; O2SAT 98; BMI 19.5
[2022-04-17 13:39] LABS: Basophils Percent Auto 0.1 % (0-2); Eosinophils Percent Auto 0.1 % (0-4); Hematocrit 41.7 % (37.0-47.0); Hemoglobin 14.2 g/dl (12.0-16.0); Imm Gran Abs Auto 0.05 X10*3/uL (0.00-0.03); Imm Gran Pct Auto 0.5 % (0.0-0.4); Lymphocytes Absolute Auto 0.5 X10*3/uL (1.2-4.9); Lymphocytes Percent Auto 5.1 % (20-40); MANUAL DIFF FLAG SCAN; Mean Corpuscular HGB Conc 34.1 g/dl (31.0-35.0); Mean Corpuscular Volume 82.2 fL (80.0-98.0); Mean Platelet Volume 9.3 fL (9.4-12.3); Monocytes Absolute Auto 0.1 X10*3/uL (0.1-1.2); Monocytes Percent Auto 0.5 % (2-11); Neutrophils Absolute Auto 9.3 x10*3/uL (2.0-8.3); Neutrophils Percent Auto 93.7 % (45-73); Platelet Count 423 X10*3/uL (160-400); Red Blood Count 5.07 X10*6/uL (4.20-5.50); Red Cell Distribution Width 13.2 % (11.0-16.0); SCAN SMEAR FLAG 1; White Blood Count 9.9 X10*3/uL (4.8-10.8)
[2022-04-17 13:50] LABS: Lactic Acid 1.2 mmol/L (0.5-2.0)
[2022-04-17 13:58] LABS: SLIDE REVIEW VERIFIED
[2022-04-17 14:01] LABS: Troponin-I High Sensitivity 13.9 ng/L (<3.5-17.0)
[2022-04-17 14:02] LABS: Alanine Aminotransferase 16 U/L (0-31); Albumin Level 3.3 g/dL (3.5-5.0); Alkaline Phosphatase 84 U/L (39-117); Anion Gap 14 (12-20); Aspartate Amino Transferase 22 U/L (5-31); Bilirubin Direct 0.2 mg/dL (0.0-0.5); Bilirubin Total 0.9 mg/dL (0.0-1.0); Blood Urea Nitrogen 19 mg/dL (9-16); Calcium 8.7 mg/dL (8.4-10.2); Carbon Dioxide 28 mmol/L (22-29); Chloride 89 mmol/L (96-108); Creatinine Clr Calc Pharmacy 66.4; Estimated Glomerular Filt Rate > 60; Glucose Random 147 mg/dL (60-115); Magnesium 1.6 mg/dL (1.6-2.6); Potassium 4.3 mmol/L (3.3-5.1); Sodium 127 mmol/L (135-145); Total Protein 6.1 g/dL (6.5-8.0)
[2022-04-17 14:11] LABS: INTERNATIONAL NORM RATIO 1.1 (0.9-1.1); Prothrombin Time 13.2 SEC (10.0-13.1)
[2022-04-17] MEDS: ondansetron HCL 4 MG/2 ML VIAL IVPUSH (14:29)
[2022-04-17] MEDS: 0.9 % Sodium Chloride 500 ML 999 ML IV (14:39)
[2022-04-17 14:44] LABS: Influenza A PCR POSITIVE (Negative); Influenza B PCR NEGATIVE (Negative); Resp Syncy Virus RNA Qual PCR NEGATIVE (Negative); SARS COV2 PCR INHOUSE NEGATIVE (Negative)
[2022-04-17 16:00] VITALS: BP 125/95; PULSE 130; RESP 18; O2SAT 97
--- NOTE | 2022-04-17 16:08 | PC.NURSE ---
Patient alert and oriented x 3. patient c/o nausea and acid reflux. Patient on 2l nasal cannula at home at 96%. Patient tele: afib 110-30's right now. bp 138/93 Will notify Deidra COPELAND regarding heart rate.
[2022-04-17] MEDS: Metoprolol Tartrate 5 MG/5 ML VIAL IVPUSH (16:16)
[2022-04-17 17:39] VITALS: BP 125/83; PULSE 93; RESP 24; TEMP 36.4; O2SAT 98
[2022-04-17 17:41] LABS: Anion Gap 16 (12-20); Blood Urea Nitrogen 19 mg/dL (9-16); Calcium 8.3 mg/dL (8.4-10.2); Carbon Dioxide 28 mmol/L (22-29); Chloride 92 mmol/L (96-108); Creatinine Clr Calc Pharmacy 66.4; Estimated Glomerular Filt Rate > 60; Glucose Random 137 mg/dL (60-115); Potassium 4.5 mmol/L (3.3-5.1); Sodium 131 mmol/L (135-145)
[2022-04-17 20:41] VITALS: BP 151/91; PULSE 98; RESP 18; TEMP 36.7; O2SAT 96
[2022-04-17] MEDS: Apixaban 2.5 MG TABLET PO (21:28)
[2022-04-17] MEDS: LORazepam 0.5 MG TABLET PO (21:28)
[2022-04-17] MEDS: Albuterol Sulfate 90 MCG 8 GM INHALER 1 PUFF INHALE (21:29)
[2022-04-17] MEDS: Morphine Sulfate ER 30 MG TABLET.ER PO (21:30)
[2022-04-17] MEDS: Albuterol Sulfate (0.042%) 1.25 MG/3 ML VIAL.NEB INHALE (21:38)
[2022-04-17] MEDS: Fluticasone/Vilanterol 100/25 BLST.W.DEV 1 PUFF INHALE (21:38)
[2022-04-17] MEDS: oxyCODONE HCl Immed Release 5 MG TABLET PO (21:40)
[2022-04-17] MEDS: dexAMETHasone 4 MG TABLET PO (21:41)
[2022-04-17 23:58] VITALS: BP 121/83; PULSE 94; RESP 18; TEMP 36.7; O2SAT 97
[2022-04-18] VITALS (10 sets, daily range): BP systolic 104–132; BP diastolic 71–88; PULSE 88–113; RESP 16–28; TEMP 36.4–37.1; O2SAT 93–98
[2022-04-18] MEDS: Ondansetron ODT 8 MG TAB.RAPDIS TRANSLINGU ×2 (00:01→05:34)
--- NOTE | 2022-04-18 03:41 | PC.NURSE ---
pt repositioned and incontinent care given. Purewick placed and secured.
--- NOTE | 2022-04-18 06:26 | PC.NURSE ---
Re-assess/ transferring to this pt at 3am: Pt's V/S are stable, pt is on the cardiac sonographer and it shows NSR. PT was asleep when rounding.
--- NOTE | 2022-04-18 06:51 | PC.NURSE ---
Re-assess/ transferring to this pt at 3am: Pt's V/S are stable, pt is on the cardiac technologist and it shows a-fib. PT was asleep when rounding.
--- NOTE | 2022-04-18 07:37 | PC.NURSE ---
P.T at bedside . Patient aware of plan of care .
[2022-04-18] MEDS: Metoprolol Succinate ER 25 MG TAB.ER.24H PO (08:38)
[2022-04-18] MEDS: Omeprazole 20 MG CAPSULE.DR PO (08:39)
[2022-04-18] MEDS: Morphine Sulfate ER 30 MG TABLET.ER PO ×2 (08:39→21:20)
[2022-04-18] MEDS: lisinopriL 20 MG TABLET PO (08:39)
[2022-04-18] MEDS: Apixaban 2.5 MG TABLET PO ×2 (08:39→20:30)
[2022-04-18] MEDS: Folic Acid 1 MG TABLET PO (08:39)
[2022-04-18] MEDS: dexAMETHasone 4 MG TABLET PO ×2 (08:40→21:20)
[2022-04-18] MEDS: Fluticasone/Vilanterol 100/25 BLST.W.DEV 1 PUFF INHALE (09:16)
--- NOTE | 2022-04-18 10:05 | PC.NURSE ---
patient a/ox4 . heart rate regular at 92 beats per minutes . breathing labored , crackers noted bilaterally throughout lungs . diminished lung flow in right lung . right lung has extension for plueurex drainage that is done M/W/F by Hospice /Visiting nurse . Obtained Kit and preformed drainage at bedside per protocol , output 500 ml yellow clear fluid . skin is pink warm and dry .Coccyx pink , blanchable , applied alleyvyn dressing for comfort . R.T. at bedside for breathing treatments . abdomen soft , positive bowel sounds . patient on nurse monitoring . patient bed at lowest position . at bedside . Both family and patient aware of plan of care .
[2022-04-18] MEDS: oxyCODONE HCl Immed Release 5 MG TABLET PO (12:35)
[2022-04-18] MEDS: Ondansetron ODT 4 MG TAB.RAPDIS TRANSLINGU ×2 (13:33→20:30)
--- NOTE | 2022-04-18 15:23 | MHC.CM.ED ---
Received case management consult overnight. Patient came to the ER due to weakness and nausea. Patient positive for Flu A. Patient's husabnd and daughter started with the Flu. Patient was prescribed Tamiflu on 04/12 for 7 days prophylactically. Patient is active with [facility] for palliative care and has a Pleurex catheter due to lung cancer. Patient has [employer] medicare for insurance. Anticipate patient will be difficult to place due to these things. Attempted to meet with patient. Patient currently sleeping. Attempted to speak with patient's , Mesfin, via telephone. Patient is primarily Occitan speaking. T/W spoke with patient's daughter, Lisandra via telephone. Lisandra agrees patient needs STR and is aware placement may be difficult. Lisandra aware [facility], [facility] and [facility] are reviewing. Lisandra would be agreeable to any of these facilities. Anticipate patient will remain in ER overnight. Continue to monitor for d/c needs.
--- NOTE | 2022-04-18 18:34 | PC.NURSE ---
Patient daughter in law stating patient confused about things in the room . Heart rate currently between 114 -122 , patient in AFFIB has history . Provider Lesley Bernal made aware . EKG obtained . patient aware of plan of care .
[2022-04-18] MEDS: Metoprolol Tartrate 5 MG/5 ML VIAL 2.5 MG IVPUSH (18:44)
[2022-04-18 19:14] LABS: Appearance Urine Clear; Color Urine Yellow; Glucose Urine UA Negative (Negative); Leukocyte Esterase Urine Negative (Negative); Nitrite Urine Negative (Negative); PH 6.5 (5.0-9.0); Specific Gravity - Urine 1.025 (1.005-1.025); UMIC TRIGGER UACC YES; Urine Blood Negative (Negative); Urine Ketones >=160 mg/dL (Negative); Urine Protein 30 (1+) mg/dL (Neg-Trace)
[2022-04-18 19:25] LABS: Bacteria Urine None Seen (None Seen); Hyaline Casts Urine 0-2 /LPF (0-2); WBC Urine 0-5 /HPF (0-5)
--- NOTE | 2022-04-18 20:19 | PC.NURSE ---
Pt resting in bed no needs expressed, family member going home.
[2022-04-19] VITALS (7 sets, daily range): BP systolic 86–123; BP diastolic 59–89; PULSE 102–134; RESP 16–22; TEMP 36.4; O2SAT 94–99
[2022-04-19] MEDS: oxyCODONE HCl Immed Release 5 MG TABLET PO (02:25)
--- NOTE | 2022-04-19 02:25 | PC.NURSE ---
PT given water and PRN MD ramiro notified about 123 HR orders placed.
[2022-04-19] MEDS: Metoprolol Tartrate 25 MG TABLET PO (02:39)
[2022-04-19] MEDS: LORazepam 0.5 MG TABLET PO (03:45)
--- NOTE | 2022-04-19 04:23 | PC.NURSE ---
Pt resting quietly, no needs expressed.
[2022-04-19] MEDS: Ondansetron ODT 4 MG TAB.RAPDIS TRANSLINGU ×2 (05:16→12:09)
[2022-04-19] MEDS: Omeprazole 20 MG CAPSULE.DR PO (06:14)
--- NOTE | 2022-04-19 06:37 | PC.NURSE ---
Pt resting no needs expressed at this time.
--- NOTE | 2022-04-19 07:30 | ECG_ITS ---
Test Reason : a fib Blood Pressure : / mmHG Vent. Rate : 116 BPM Atrial Rate : 000 BPM P-R Int : 000 ms QRS Dur : 066 ms QT Int : 340 ms P-R-T Axes : 000 -28 -49 degrees QTc Int : 472 ms Atrial fibrillation with rapid ventricular response Septal infarct (cited on or before 17-APR-2022) Abnormal ECG When compared with ECG of 18-APR-2022 18:36, No significant change was found Referred By: Deidra Bernal Electronically Signed By:LUDY PEREZ
[2022-04-19] MEDS: Fluticasone/Vilanterol 100/25 BLST.W.DEV 1 PUFF INHALE (07:37)
--- NOTE | 2022-04-19 09:18 | MHC.CM.ED ---
Patient remains in ER. [facility] is able to offer a bed today. Spoke with patient's daughter, Lisandra via telephone. Lisandra also has the flu but feels better and will be able to take care of her mother. Requesting patient return home with [facility] via BLS. [facility] via 2pm. [facility] with [facility]. Patient, daughter Lisandra, Mojgan RN and Armando COPELAND. Continue to monitor for d/c needs.
[2022-04-19] MEDS: lisinopriL 20 MG TABLET PO (09:22)
[2022-04-19] MEDS: Metoprolol Succinate ER 25 MG TAB.ER.24H PO (09:22)
[2022-04-19] MEDS: Apixaban 2.5 MG TABLET PO (09:22)
[2022-04-19] MEDS: Folic Acid 1 MG TABLET PO (09:22)
[2022-04-19] MEDS: Morphine Sulfate ER 30 MG TABLET.ER PO (09:22)
[2022-04-19] MEDS: dexAMETHasone 4 MG TABLET PO (09:22)
== END 2022-04-19 14:04 | disposition home or self-care (01) ==
PROVIDERS: Nurse Practitioner Family; Emergency Provider Student in an Organized Health Care Education/Training Program; PCP Internal Medicine
DX: J11.1 Influenza due to unidentified influenza virus with other respiratory manifestations (principal); J90 Pleural effusion, not elsewhere classified; E87.1 Hypo-osmolality and hyponatremia; D75.839 Thrombocytosis, unspecified; E87.8 Other disorders of electrolyte and fluid balance, not elsewhere classified; Z20.822 Contact with and (suspected) exposure to COVID-19; I48.91 Unspecified atrial fibrillation; C34.90 Malignant neoplasm of unspecified part of unspecified bronchus or lung; Z79.01 Long term (current) use of anticoagulants; Z79.899 Other long term (current) drug therapy; Z87.891 Personal history of nicotine dependence
CPT/HCPCS: 0241U; 36415; 51701; 71046; 80048; 80076; 81001; 83605; 83735; 84484; 85025; 85610; 87040; 93005; 96361; 96374; 96375; 96376; 97162; 99285; J2405; J2550; J8540